=== PATIENT | male | born 1935 | race Caucasian/White ===

== ENCOUNTER 2019-07-24 17:32 | Inpatient (IN) ==
[2019-07-24] MEDS ORDERED: MORPHINE SULFATE INJ 2 MG INJ IVP PRN (18:34)
[2019-07-24 19:00] LABS: BASOPHILS # (AUTO) 0.3 X10^3/uL (0.0-0.1); BASOPHILS % (AUTO) 1.8 % (0.2-1.0); EOSINOPHILS # (AUTO) 0.1 x10^3/uL (0.0-0.2); EOSINOPHILS % (AUTO) 0.5 % (0.9-2.9); HEMOGLOBIN 15.5 g/dL (13.5-18.0); LYMPHOCYTES # (AUTO) 2.2 X10^3/uL (1.3-2.9); LYMPHOCYTES % (AUTO) 14.5 % (21.0-51.0); MEAN CORPUSCULAR HEMOGLOBIN 31.3 pg (27.0-34.0); MEAN CORPUSCULAR HGB CONC 33.8 g/dL (33.0-35.0); MEAN CORPUSCULAR VOLUME 92.7 fL (80.0-100.0); MONOCYTES # (AUTO) 1.3 x10^3/uL (0.3-0.8); MONOCYTES % (AUTO) 8.9 % (0.0-13.0); NEUTROPHILS # (AUTO) 11.2 x10^3/uL (2.2-4.8); NEUTROPHILS % (AUTO) 74.3 % (42.0-75.0); PLATELET COUNT 273 X10^3/uL (150.0-450.0); RED BLOOD COUNT 4.96 X10^6/uL (4.7-6.0); RED CELL DISTRIBUTION WIDTH 14.8 % (11.6-16.5); WHITE BLOOD COUNT 15.1 X10^3/uL (3.6-10.0)
[2019-07-24 19:14] LABS: ALANINE AMINOTRANSFERASE 19 Units/L (12-78); ALBUMIN 3.5 g/dL (3.4-5.0); ALKALINE PHOSPHATASE 105 Units/L (46-116); ASPARTATE AMINO TRANSFERASE 21 Units/L (15-37); BLOOD UREA NITROGEN 18 mg/dL (7-18); CARBON DIOXIDE 27.7 mmol/L (21-32); CHLORIDE 98 mmol/L (98-107); COR NA(FOR HYPERGLY) 136 mmol/L (136-145); CREATININE 1.31 mg/dL (0.70-1.30); SODIUM 135 mmol/L (136-145); TOTAL PROTEIN 7.7 g/dL (6.4-8.2); eGFR NON BLACK RACES 55 (>60)
[2019-07-24 21:32] VITALS: BMI 27.3
[2019-07-24] MEDS: CIPRO IV 400 MG PREMIX* 400 MG/200 ML IV.SOLN. IV SCH (22:59)
[2019-07-24] MEDS: FLAGYL IV PREMIX 500 MG BAG 500 MG/100 ML BAG IV SCH (22:59)
[2019-07-24] MEDS: NS 1000 ML 1,000 ML IV SCH (22:59)
[2019-07-25] MEDS: FLAGYL IV PREMIX 500 MG BAG 500 MG/100 ML BAG IV SCH ×5 (04:30→21:30)
[2019-07-25 05:37] LABS: BASOPHILS % (AUTO) 0.3 % (0.2-1.0); EOSINOPHILS % (AUTO) 0.3 % (0.9-2.9); HEMATOCRIT 39.9 % (42.0-54.0); LYMPHOCYTES # (AUTO) 2.1 X10^3/uL (1.3-2.9); LYMPHOCYTES % (AUTO) 15.6 % (21.0-51.0); MEAN CORPUSCULAR HGB CONC 33.4 g/dL (33.0-35.0); MEAN CORPUSCULAR VOLUME 92.8 fL (80.0-100.0); MEAN PLATELET VOLUME 9.4 fL (7.4-11.0); MONOCYTES # (AUTO) 1.4 x10^3/uL (0.3-0.8); MONOCYTES % (AUTO) 10.1 % (0.0-13.0); NEUTROPHILS # (AUTO) 10.1 x10^3/uL (2.2-4.8); NEUTROPHILS % (AUTO) 73.7 % (42.0-75.0); PLATELET COUNT 225 X10^3/uL (150.0-450.0); RED CELL DISTRIBUTION WIDTH 14.9 % (11.6-16.5); WHITE BLOOD COUNT 13.7 X10^3/uL (3.6-10.0)
[2019-07-25 05:38] LABS: HEMOGLOBIN 13.3 g/dL (13.5-18.0)
[2019-07-25 05:42] LABS: ALANINE AMINOTRANSFERASE 15 Units/L (12-78); ALBUMIN 2.6 g/dL (3.4-5.0); ALKALINE PHOSPHATASE 79 Units/L (46-116); ASPARTATE AMINO TRANSFERASE 17 Units/L (15-37); BLOOD UREA NITROGEN 22 mg/dL (7-18); CALCIUM 8.3 mg/dL (8.5-10.1); CARBON DIOXIDE 23.6 mmol/L (21-32); CHLORIDE 101 mmol/L (98-107); COR CA(FOR HYPOALB) 9.4 mg/dL (8.5-10.1); COR NA(FOR HYPERGLY) 136 mmol/L (136-145); CREATININE 1.03 mg/dL (0.70-1.30); SODIUM 136 mmol/L (136-145); TOTAL PROTEIN 6.2 g/dL (6.4-8.2); eGFR NON BLACK RACES > 60 (>60)
[2019-07-25] MEDS: NS 1000 ML 1,000 ML IV SCH ×3 (06:08→21:30)
[2019-07-25] MEDS ORDERED: POTASSIUM CHLORIDE LIQ 20 MEQ UDC PO PRN (06:24)
[2019-07-25] MEDS ORDERED: MICRO K EXTEN CAP 10 MEQ PO PRN (06:24)
[2019-07-25] MEDS ORDERED: K-RIDER 10 MEQ/NS 100 ML 10 MEQ/100 ML BAG IV PRN (06:24)
[2019-07-25] MEDS ORDERED: POTASSIUM CHL 60 MEQ/NS 0.45% 500 ML IV PRN (06:24)
[2019-07-25] MEDS ORDERED: POTASSIUM CHL 40 MEQ/NS 0.45% 500 ML IV PRN (06:24)
--- NOTE | 2019-07-25 06:49 | DR.H&P ---
H&P History & Physical for Day of: H&P Date: 07/25/19 Chief Complaint Chief Complaint: Abdominal pain and vomiting Allergies Allergies Allergy/AdvReac Type Severity Reaction Status Date / Time No Known Drug Allergies Allergy Verified 07/24/19 21:32 History of Present Illness History of Present Illness: Pt is a 84 yo m pmhx of htn, hypothyroidism, gout, presenting after having abdominal pain and constipation x 1 week. He reports associated sx of nausea, non-bilious emesis. Denies any other symptoms. CTAP(07/24/19):Impression:1.Short segment narrowing and mild mural thickening of the rectosigmoid colon with mild gaseous distention of the proximal colon as above. Although findings could simply represent peristalsis, underlying neoplasm with partial distal colonic obstruction is not excluded. Direct visualization with colonoscopy is recommended for further evaluation. 2.Diffuse colonic diverticulosis without diverticulitis, small hiatal hernia with evidence of GE reflux and additional findings as above. Past Medical History Past Medical History: Gout, Hypertension and Hypothyroidism Past Surgical History Surgical History: Appendectomy and Ortho Surgery Social History Does patient currently use any type of tobacco product: Yes Have you used tobacco products in the last 12 months: Yes Type of Tobacco Use: Cigars Alcohol Use: Occasionally Drug Use: None Medications Home Medications: No Known Drug Allergies Allergy (Verified 07/24/19 21:32) CONTINUE taking the following medications allopurinol 300 mg PO BID 07/24/19 [History] clotrimazole 1 applic TOPICAL BID 07/24/19 [History] furosemide 20 mg PO DAILY 07/24/19 [History] latanoprost 1 drp OPHTHALMIC (EYE) HS 07/24/19 [History] levothyroxine 125 mcg PO DAILY 07/24/19 [History] nifedipine 30 mg PO DAILY 07/24/19 [History] potassium chloride 10 meq PO DAILY 07/24/19 [History] triamcinolone acetonide 1 applic TOPICAL BID PRN 07/24/19 [History] Labs Result Diagrams: 07/25/19 04:29 07/25/19 04:29 Labs: Laboratory WBC 13.7 X10^3/uL (3.6-10.0) H 07/25/19 04:29 RBC 4.30 X10^6/uL (4.7-6.0) L 07/25/19 04:29 Hgb 13.3 g/dL (13.5-18.0) L D 07/25/19 04:29 Hct 39.9 % (42.0-54.0) L 07/25/19 04:29 MCV 92.8 fL (80.0-100.0) 07/25/19 04:29 MCH 31.0 pg (27.0-34.0) 07/25/19 04:29 MCHC 33.4 g/dL (33.0-35.0) 07/25/19 04:29 RDW 14.9 % (11.6-16.5) 07/25/19 04:29 Plt Count 225 X10^3/uL (150.0-450.0) 07/25/19 04:29 MPV 9.4 fL (7.4-11.0) 07/25/19 04:29 Neut % (Auto) 73.7 % (42.0-75.0) 07/25/19 04:29 Lymph % (Auto) 15.6 % (21.0-51.0) L 07/25/19 04:29 [place] % (Auto) 10.1 % (0.0-13.0) 07/25/19 04:29 Eos % (Auto) 0.3 % (0.9-2.9) L 07/25/19 04:29 Baso % (Auto) 0.3 % (0.2-1.0) 07/25/19 04:29 Neut # (Auto) 10.1 x10^3/uL (2.2-4.8) H 07/25/19 04:29 Lymph # (Auto) 2.1 X10^3/uL (1.3-2.9) 07/25/19 04:29 [place] # (Auto) 1.4 x10^3/uL (0.3-0.8) H 07/25/19 04:29 Eos # (Auto) 0.0 x10^3/uL (0.0-0.2) 07/25/19 04:29 Baso # (Auto) 0.0 X10^3/uL (0.0-0.1) 07/25/19 04:29 Absolute Nucleated RBC 0.0 /100WBC 07/25/19 04:29 Sodium 136 mmol/L (136-145) 07/25/19 04:29 Corrected Sodium 136 mmol/L (136-145) 07/25/19 04:29 Potassium 3.2 mmol/L (3.5-5.1) L 07/25/19 04:29 Chloride 101 mmol/L (98-107) 07/25/19 04:29 Carbon Dioxide 23.6 mmol/L (21-32) 07/25/19 04:29 BUN 22 mg/dL (7-18) H 07/25/19 04:29 Creatinine 1.03 mg/dL (0.70-1.30) 07/25/19 04:29 Est GFR (MDRD) Af Amer > 60 (>60) 07/25/19 04:29 Est GFR (MDRD) Non-Af > 60 (>60) 07/25/19 04:29 Glucose 116 mg/dL (65-99) H 07/25/19 04:29 Calcium 8.3 mg/dL (8.5-10.1) L 07/25/19 04:29 Corrected Calcium 9.4 mg/dL (8.5-10.1) 07/25/19 04:29 Total Bilirubin 1.00 mg/dL (0.2-1.0) 07/25/19 04:29 AST 17 Units/L (15-37) 07/25/19 04:29 ALT 15 Units/L (12-78) 07/25/19 04:29 Alkaline Phosphatase 79 Units/L (46-116) 07/25/19 04:29 Total Protein 6.2 g/dL (6.4-8.2) L 07/25/19 04:29 Albumin 2.6 g/dL (3.4-5.0) L 07/25/19 04:29 Globulin 3.6 g/dL (2.5-4.5) 07/25/19 04:29 Albumin/Globulin Ratio 0.7 Ratio (1.1-2.1) L 07/25/19 04:29 Review of Systems Constitutional: denies Fever and Chills Eyes: No Symptoms Reported ENT: No Symptoms Reported Respiratory: No Symptoms Reported Cardiovascular: No Symptoms Reported Gastrointestinal: Vomiting, Abdominal Pain and Constipation; denies Diarrhea, Melena and Hematochezia Genitourinary: No Symptoms Reported Musculoskeletal: No Symptoms Reported Skin: No Symptoms Reported Neurological: No Symptoms Reported Physical Exam Vital Signs: Temperature 98.2 F Pulse Rate [Left Brachial] 67 Respiratory Rate 20 Blood Pressure [Left Arm] 121/59 O2 Sat by Pulse Oximetry 96 Oriented: Normal Eyes: Normal Ear: Normal Nose: Normal Respiratory: Clear Throughout Cardiovascular: Normal : Normal Auscultation: Bowel Sounds: Decreased Palpation: Other (Distended ) Tenderness: Diffuse and Moderate; negative Rebound, Guarding and Rigidity Skin: Normal Musculoskeletal: Normal Psychiatric: Normal Mood Description: Calm Speech Pattern: Clear Assessment/Plan (1) Bowel obstruction: Qualifiers: Intestinal obstruction type: other intestinal obstruction Intestinal obstruction extent: partial Qualified Code(s): K56.690 - Other partial intestinal obstruction Status: Acute Plan: -CTAP at [facility] impression of underlying neoplasm with partial distal colonic obstruction is not excluded. -Surgery consulted, appreciate the recs -NPO, pain and nausea control. -Ordered KUB this morning. F/u results. (2) Hypothyroidism: Qualifiers: Hypothyroidism type: unspecified Qualified Code(s): E03.9 - Hypothyroidism, unspecified Status: Acute (3) Hypertension: Qualifiers: Hypertension type: essential hypertension Qualified Code(s): I10 - Essential (primary) hypertension Status: Acute (4) Gout: Qualifiers: Gout site: unspecified site Gout etiology: unspecified cause Chronicity: unspecified Qualified Code(s): M10.9 - Gout, unspecified Status: Acute
[2019-07-25] MEDS: K-DUR TAB 20 MEQ PO PRN ×2 (06:50→08:58)
--- NOTE | 2019-07-25 08:05 | RAD ---
HISTORY: Bowel obstruction Study: KUB Comparison: None available Findings: The abdominal gas pattern is nonspecific and nonobstructive. No abnormal masses or abnormal calcifications are present. 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 IMPRESSION: Nonspecific bowel gas pattern Reported By:
[2019-07-25] MEDS: CIPRO IV 400 MG PREMIX* 400 MG/200 ML IV.SOLN. IV SCH ×2 (08:57→21:30)
[2019-07-25] MEDS ORDERED: CITROMA PO ONE (14:15)
[2019-07-25] MEDS ORDERED: DULCOLAX TAB EC 5 MG PO ONE (14:15)
[2019-07-26] MEDS: FLAGYL IV PREMIX 500 MG BAG 500 MG/100 ML BAG IV SCH ×4 (04:03→21:38)
[2019-07-26] MEDS: NS 1000 ML 1,000 ML IV SCH ×3 (04:03→19:06)
[2019-07-26 06:35] LABS: BASOPHILS # (AUTO) 0.1 X10^3/uL (0.0-0.1); BASOPHILS % (AUTO) 0.5 % (0.2-1.0); EOSINOPHILS # (AUTO) 0.3 x10^3/uL (0.0-0.2); EOSINOPHILS % (AUTO) 2.6 % (0.9-2.9); HEMATOCRIT 37.6 % (42.0-54.0); HEMOGLOBIN 12.6 g/dL (13.5-18.0); LYMPHOCYTES # (AUTO) 2.4 X10^3/uL (1.3-2.9); LYMPHOCYTES % (AUTO) 24.5 % (21.0-51.0); MEAN CORPUSCULAR HGB CONC 33.4 g/dL (33.0-35.0); MEAN CORPUSCULAR VOLUME 92.6 fL (80.0-100.0); MEAN PLATELET VOLUME 9.2 fL (7.4-11.0); MONOCYTES # (AUTO) 0.9 x10^3/uL (0.3-0.8); MONOCYTES % (AUTO) 9.2 % (0.0-13.0); NEUTROPHILS # (AUTO) 6.1 x10^3/uL (2.2-4.8); NEUTROPHILS % (AUTO) 63.2 % (42.0-75.0); PLATELET COUNT 214 X10^3/uL (150.0-450.0); RED BLOOD COUNT 4.06 X10^6/uL (4.7-6.0); WHITE BLOOD COUNT 9.7 X10^3/uL (3.6-10.0)
[2019-07-26 06:40] LABS: BLOOD UREA NITROGEN 20 mg/dL (7-18); SODIUM 140 mmol/L (136-145); eGFR NON BLACK RACES > 60 (>60)
[2019-07-26 07:13] LABS: ALBUMIN 2.6 g/dL (3.4-5.0); CHLORIDE 105 mmol/L (98-107)
[2019-07-26 07:27] LABS: ALANINE AMINOTRANSFERASE 13 Units/L (12-78); ALKALINE PHOSPHATASE 72 Units/L (46-116); ASPARTATE AMINO TRANSFERASE 22 Units/L (15-37); CALCIUM 8.3 mg/dL (8.5-10.1); CARBON DIOXIDE 26.1 mmol/L (21-32); COR CA(FOR HYPOALB) 9.4 mg/dL (8.5-10.1); CREATININE 1.14 mg/dL (0.70-1.30); TOTAL PROTEIN 5.9 g/dL (6.4-8.2)
[2019-07-26] MEDS: CIPRO IV 400 MG PREMIX* 400 MG/200 ML IV.SOLN. IV SCH ×2 (09:26→20:38)
--- NOTE | 2019-07-26 10:28 | PCM.PROG ---
Progress Note Progress Note for Day of Date of Exam: 07/26/19 Subjective Subjective: Pt is a 84 yo m pmhx of htn, hypothyroidism, gout, admitted for failed outpt treatment for partial bowel obstruction w/ associated sx abdominal pain, constipation, nausea, non-bilious emesis. -Pt is feeling a little better this morning. He has improvement in his abdominal pain but still present. Reports having multiple bowel movements yesterday that were soft and loose. He is scheduled for proctosigmoidoscopy today. CTAP(07/24/19):Impression:1.Short segment narrowing and mild mural thickening of the rectosigmoid colon with mild gaseous distention of the proximal colon as above. Although findings could simply represent peristalsis, underlying neoplasm with partial distal colonic obstruction is not excluded. Direct visualization with colonoscopy is recommended for further evaluation. 2.Diffuse colonic diverticulosis without diverticulitis, small hiatal hernia with evidence of GE reflux and additional findings as above. Past Medical Family Social History Past Med/Fam/Surg Hx: No changes since H&P Allergies: Allergies No Known Drug Allergies Allergy (Verified 07/24/19 21:32) Review of Systems ROS: No change since H&P Vital Signs and I&O's Vital Signs: Temperature 97.7 F Pulse Rate [Left Brachial] 81 Respiratory Rate 17 Blood Pressure [Left Arm] 109/57 O2 Sat by Pulse Oximetry 98 Intake and Output: Intake & Output 07/23/19 07/24/19 07/25/19 07/26/19 23:59 23:59 23:59 23:59 Intake Total 620 / 620 1440 / 1440 0 / 0 Balance 620 / 620 1440 / 1440 0 / 0 Physical Exam Oriented: Normal Eyes: Normal Ear: Normal Nose: Normal Cardiovascular: Normal : Normal Auscultation: Bowel Sounds: Decreased Tenderness: Diffuse and Moderate; negative Rebound, Guarding and Rigidity Skin: Normal Musculoskeletal: Normal Psychiatric: Normal Mood Description: Calm Speech Pattern: Clear and Appropriate Laboratory and Diagnostics Result Diagrams: 07/26/19 05:16 07/26/19 05:16 Labs: Laboratory WBC 9.7 X10^3/uL (3.6-10.0) 07/26/19 05:16 RBC 4.06 X10^6/uL (4.7-6.0) L 07/26/19 05:16 Hgb 12.6 g/dL (13.5-18.0) L 07/26/19 05:16 Hct 37.6 % (42.0-54.0) L 07/26/19 05:16 MCV 92.6 fL (80.0-100.0) 07/26/19 05:16 MCH 31.0 pg (27.0-34.0) 07/26/19 05:16 MCHC 33.4 g/dL (33.0-35.0) 07/26/19 05:16 RDW 15.0 % (11.6-16.5) 07/26/19 05:16 Plt Count 214 X10^3/uL (150.0-450.0) 07/26/19 05:16 MPV 9.2 fL (7.4-11.0) 07/26/19 05:16 Neut % (Auto) 63.2 % (42.0-75.0) 07/26/19 05:16 Lymph % (Auto) 24.5 % (21.0-51.0) 07/26/19 05:16 [place] % (Auto) 9.2 % (0.0-13.0) 07/26/19 05:16 Eos % (Auto) 2.6 % (0.9-2.9) 07/26/19 05:16 Baso % (Auto) 0.5 % (0.2-1.0) 07/26/19 05:16 Neut # (Auto) 6.1 x10^3/uL (2.2-4.8) H 07/26/19 05:16 Lymph # (Auto) 2.4 X10^3/uL (1.3-2.9) 07/26/19 05:16 [place] # (Auto) 0.9 x10^3/uL (0.3-0.8) H 07/26/19 05:16 Eos # (Auto) 0.3 x10^3/uL (0.0-0.2) H 07/26/19 05:16 Baso # (Auto) 0.1 X10^3/uL (0.0-0.1) 07/26/19 05:16 Absolute Nucleated RBC 0.1 /100WBC 07/26/19 05:16 Sodium 140 mmol/L (136-145) 07/26/19 05:16 Corrected Sodium TNP 07/26/19 05:16 Potassium 3.2 mmol/L (3.5-5.1) L 07/26/19 05:16 Chloride 105 mmol/L (98-107) 07/26/19 05:16 Carbon Dioxide 26.1 mmol/L (21-32) 07/26/19 05:16 BUN 20 mg/dL (7-18) H 07/26/19 05:16 Creatinine 1.14 mg/dL (0.70-1.30) 07/26/19 05:16 Est GFR (MDRD) Af Amer > 60 (>60) 07/26/19 05:16 Est GFR (MDRD) Non-Af > 60 (>60) 07/26/19 05:16 Glucose 99 mg/dL (65-99) 07/26/19 05:16 Calcium 8.3 mg/dL (8.5-10.1) L 07/26/19 05:16 Corrected Calcium 9.4 mg/dL (8.5-10.1) 07/26/19 05:16 Total Bilirubin 0.60 mg/dL (0.2-1.0) 07/26/19 05:16 AST 22 Units/L (15-37) 07/26/19 05:16 ALT 13 Units/L (12-78) 07/26/19 05:16 Alkaline Phosphatase 72 Units/L (46-116) 07/26/19 05:16 Total Protein 5.9 g/dL (6.4-8.2) L 07/26/19 05:16 Albumin 2.6 g/dL (3.4-5.0) L 07/26/19 05:16 Globulin 3.3 g/dL (2.5-4.5) 07/26/19 05:16 Albumin/Globulin Ratio 0.8 Ratio (1.1-2.1) L 07/26/19 05:16 Stool Description 75g unformed brown 07/25/19 11:42 Stl Occult Blood (IFOB) Positive (NEGATIVE) A 07/25/19 11:42 Plan (1) Bowel obstruction: Status: Acute Qualifiers: Intestinal obstruction type: other intestinal obstruction Intestinal obstruction extent: partial Qualified Code(s): K56.690 - Other partial intestinal obstruction Plan: -Surgery consulted, will be performing proctosigmoidoscopy today. -NPO, pain and nausea control. -Stool occult:positive, CEA pending (2) Hypothyroidism: Status: Acute Qualifiers: Hypothyroidism type: unspecified Qualified Code(s): E03.9 - Hypothy roidism, unspecified (3) Hypertension: Status: Acute Qualifiers: Hypertension type: essential hypertension Qualified Code(s): I10 - Essential (primary) hypertension (4) Gout: Status: Acute Qualifiers: Gout site: unspecified site Gout etiology: unspecified cause Chronicity: unspecified Qualified Code(s): M10.9 - Gout, unspecified
[2019-07-26] MEDS ORDERED: DIPRIVAN VIAL 20 ML ONE (11:15)
[2019-07-26] MEDS ORDERED: NS IV ONE (14:34)
[2019-07-26] MEDS ORDERED: STERILE WATER IRRIGATION IR ONE (14:34)
[2019-07-26] MEDS: K-DUR TAB 20 MEQ PO PRN ×2 (16:41→20:38)
[2019-07-26] MEDS: ZOFRAN INJ 4 MG VIAL IVP PRN (16:42)
[2019-07-26] MEDS: SYNTHROID 125 mcg TAB PO SCH (18:22)
--- NOTE | 2019-07-26 20:25 | RAD ---
Chest, one view Indication: Preop Comparison: None Findings: Accounting for AP technique and low lung volumes, the cardiac silhouette is borderline enlarged without congestive failure. Lungs are hypoinflated but grossly clear of acute infiltrates. No significant pleural effusion. No pneumothorax. Impression: Mild cardiomegaly without CHF. Lungs hypoinflated but grossly clear. Reported By:
[2019-07-27] MEDS: NS 1000 ML 1,000 ML IV SCH (02:52)
[2019-07-27] MEDS: FLAGYL IV PREMIX 500 MG BAG 500 MG/100 ML BAG IV SCH ×4 (04:33→21:26)
[2019-07-27 06:59] LABS: BASOPHILS # (AUTO) 0.1 X10^3/uL (0.0-0.1); BASOPHILS % (AUTO) 1.1 % (0.2-1.0); EOSINOPHILS # (AUTO) 0.3 x10^3/uL (0.0-0.2); EOSINOPHILS % (AUTO) 3.2 % (0.9-2.9); HEMATOCRIT 39.2 % (42.0-54.0); LYMPHOCYTES % (AUTO) 21.5 % (21.0-51.0); MEAN CORPUSCULAR HEMOGLOBIN 30.9 pg (27.0-34.0); MEAN CORPUSCULAR HGB CONC 33.2 g/dL (33.0-35.0); MEAN CORPUSCULAR VOLUME 93.1 fL (80.0-100.0); MEAN PLATELET VOLUME 9.2 fL (7.4-11.0); MONOCYTES # (AUTO) 0.8 x10^3/uL (0.3-0.8); MONOCYTES % (AUTO) 8.4 % (0.0-13.0); NEUTROPHILS # (AUTO) 6.2 x10^3/uL (2.2-4.8); NEUTROPHILS % (AUTO) 65.8 % (42.0-75.0); PLATELET COUNT 241 X10^3/uL (150.0-450.0); RED BLOOD COUNT 4.21 X10^6/uL (4.7-6.0); RED CELL DISTRIBUTION WIDTH 15.2 % (11.6-16.5); WHITE BLOOD COUNT 9.4 X10^3/uL (3.6-10.0)
[2019-07-27 07:07] LABS: BLOOD UREA NITROGEN 12 mg/dL (7-18); CALCIUM 8.1 mg/dL (8.5-10.1); CARBON DIOXIDE 25.5 mmol/L (21-32); CHLORIDE 107 mmol/L (98-107); CREATININE 0.99 mg/dL (0.70-1.30); SODIUM 141 mmol/L (136-145); eGFR NON BLACK RACES > 60 (>60)
[2019-07-27] MEDS ORDERED: BACITRACIN VIAL ONE (08:58)
[2019-07-27] MEDS: CIPRO IV 400 MG PREMIX* 400 MG/200 ML IV.SOLN. IV SCH ×2 (09:00→20:27)
[2019-07-27] MEDS ORDERED: FENTANYL INJ 250 mcg ONE (09:26)
[2019-07-27] MEDS ORDERED: DILAUDID INJ ONE (09:26)
[2019-07-27] MEDS ORDERED: LR 1000 ML IV 1,000 ML IV ONE (09:27)
[2019-07-27 10:58] LABS: BILIRUBIN,URINE NEGATIVE (NEGATIVE); BLOOD/HEMOGLOBIN,URINE NEGATIVE (NEGATIVE); GLUCOSE, URINE NEGATIVE (NEGATIVE); KETONES,URINE 3+ (NEGATIVE); LEUKOCYTE ESTERASE ,URINE 2+ (NEGATIVE); NITRITES,URINE POSITIVE (NEGATIVE); PROTEIN,URINE 2+ (NEGATIVE); UROBILINOGEN,URINE NORMAL (NORMAL)
[2019-07-27 11:07] LABS: APPEARANCE,URINE CLEAR (CLEAR); COLOR,URINE DARK YELLOW (YELLOW)
[2019-07-27 11:08] LABS: BACTERIA,URINE TRACE /HPF (NEGATIVE); MUCUS,URINE FEW /HPF (NEGATIVE); RBC,URINE 0-2 /HPF (0-3); SQUAMOUS EPITHELIAL CELL,UR FEW /HPF (NEGATIVE)
[2019-07-27] MEDS ORDERED: ZOFRAN INJ 4 MG VIAL IVP PRN (11:10)
[2019-07-27] MEDS ORDERED: BENADRYL INJ 50 MG VIAL IVP PRN (11:10)
[2019-07-27] MEDS ORDERED: DILAUDID INJ IVP PRN (11:10)
[2019-07-27] MEDS ORDERED: PHENERGAN INJ 25 MG IM PRN (11:10)
[2019-07-27] MEDS ORDERED: REGLAN INJ 10 MG VIAL IVP PRN (11:10)
--- NOTE | 2019-07-27 11:23 | OR.IMMED ---
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 Procedure: transverse colon colostomy .( loop colostomy ) Surgeon/Clinic Physician: Renee Estimated Blood Loss: 10 cc Drains: NONE Complications: no Condition: Stable
[2019-07-27] MEDS: D5 1/2 NS 1000 ML 1,000 ML IV SCH ×2 (13:22→21:25)
[2019-07-27] MEDS ORDERED: EPHEDRINE SULFATE INJ ONE (15:44)
[2019-07-27] MEDS ORDERED: ROBINUL ONE (15:44)
[2019-07-27] MEDS ORDERED: DIPRIVAN VIAL ONE (15:44)
[2019-07-27] MEDS ORDERED: QUELICIN (OR ANECTINE) ONE (15:44)
[2019-07-27] MEDS ORDERED: NEOSTIGMINE INJ ONE (15:44)
[2019-07-27] MEDS ORDERED: ZOFRAN INJ 4 MG VIAL ONE (15:44)
[2019-07-27] MEDS ORDERED: SUPRANE ONE (15:44)
[2019-07-27] MEDS: SYNTHROID 125 mcg TAB PO SCH (18:31)
[2019-07-28] MEDS: FLAGYL IV PREMIX 500 MG BAG 500 MG/100 ML BAG IV SCH ×4 (03:15→21:02)
[2019-07-28] MEDS: D5 1/2 NS 1000 ML 1,000 ML IV SCH ×5 (05:10→21:02)
[2019-07-28 05:21] LABS: BASOPHILS # (AUTO) 0.1 X10^3/uL (0.0-0.1); BASOPHILS % (AUTO) 0.6 % (0.2-1.0); EOSINOPHILS # (AUTO) 0.2 x10^3/uL (0.0-0.2); EOSINOPHILS % (AUTO) 1.9 % (0.9-2.9); HEMATOCRIT 37.8 % (42.0-54.0); HEMOGLOBIN 12.7 g/dL (13.5-18.0); LYMPHOCYTES # (AUTO) 1.7 X10^3/uL (1.3-2.9); LYMPHOCYTES % (AUTO) 17.3 % (21.0-51.0); MEAN CORPUSCULAR HEMOGLOBIN 31.4 pg (27.0-34.0); MEAN CORPUSCULAR HGB CONC 33.6 g/dL (33.0-35.0); MEAN CORPUSCULAR VOLUME 93.3 fL (80.0-100.0); MEAN PLATELET VOLUME 8.5 fL (7.4-11.0); MONOCYTES # (AUTO) 1.3 x10^3/uL (0.3-0.8); MONOCYTES % (AUTO) 12.6 % (0.0-13.0); NEUTROPHILS # (AUTO) 6.7 x10^3/uL (2.2-4.8); NEUTROPHILS % (AUTO) 67.6 % (42.0-75.0); PLATELET COUNT 210 X10^3/uL (150.0-450.0); RED BLOOD COUNT 4.05 X10^6/uL (4.7-6.0); RED CELL DISTRIBUTION WIDTH 14.9 % (11.6-16.5); WHITE BLOOD COUNT 9.9 X10^3/uL (3.6-10.0)
[2019-07-28 05:25] LABS: BLOOD UREA NITROGEN 6 mg/dL (7-18); CARBON DIOXIDE 24.5 mmol/L (21-32); CHLORIDE 106 mmol/L (98-107); COR NA(FOR HYPERGLY) 139 mmol/L (136-145); CREATININE 0.96 mg/dL (0.70-1.30); SODIUM 139 mmol/L (136-145); eGFR NON BLACK RACES > 60 (>60)
--- NOTE | 2019-07-28 09:49 | DR.PROGNOT ---
Hospital Progress Notes - Progress Note for Day of: Progress Note Date: 07/28/19 - Chief Complaint Chief Complaint: post op loop colostomy transverse colon. doing fairly well . only mild abdominal pain . no nausea or vomiting . costomy bag is not functioning yet . will start clear liquid and advance to full liquid later on . - Past Medical Family Social History Past Med/Fam/Surg Hx: No changes since H&P Allergies: Allergies No Known Drug Allergies Allergy (Verified 07/24/19 21:32) - Review Of Systems ROS: No change since H&P - Vital Signs Vital Signs: Temperature 98.6 F Pulse Rate [Left Brachial] 83 Pulse Rate 55 Respiratory Rate 20 Blood Pressure [Left Arm] 128/58 Blood Pressure 144/67 O2 Sat by Pulse Oximetry 94 - Physical Exam Oriented: Normal Eyes: Normal Ear: Normal Nose: Normal Cardiovascular: Irregular (irregular with PACs. ) : Normal GI:Auscultation: Decreased GI:Palpation: Other (Distended) GI: Tenderness: Diffuse (soft , flat abdomen , BS+ , colostomy is not functioning yet ), Moderate. negative: Rebound, Guarding, Rigidity Skin: Normal Musculoskeletal: Normal Psychiatric: Normal Mood Description: Calm Speech Pattern: Clear, Appropriate - Laboratory and Diagnostics Result Diagrams: 07/28/19 04:54 07/28/19 04:54 Labs: 07/27/19 10:13 Urine,Catheterized Urine Culture - Preliminary Laboratory WBC 9.9 X10^3/uL (3.6-10.0) 07/28/19 04:54 RBC 4.05 X10^6/uL (4.7-6.0) L 07/28/19 04:54 Hgb 12.7 g/dL (13.5-18.0) L 07/28/19 04:54 Hct 37.8 % (42.0-54.0) L 07/28/19 04:54 MCV 93.3 fL (80.0-100.0) 07/28/19 04:54 MCH 31.4 pg (27.0-34.0) 07/28/19 04:54 MCHC 33.6 g/dL (33.0-35.0) 07/28/19 04:54 RDW 14.9 % (11.6-16.5) 07/28/19 04:54 Plt Count 210 X10^3/uL (150.0-450.0) 07/28/19 04:54 MPV 8.5 fL (7.4-11.0) 07/28/19 04:54 Neut % (Auto) 67.6 % (42.0-75.0) 07/28/19 04:54 Lymph % (Auto) 17.3 % (21.0-51.0) L 07/28/19 04:54 [place] % (Auto) 12.6 % (0.0-13.0) 07/28/19 04:54 Eos % (Auto) 1.9 % (0.9-2.9) 07/28/19 04:54 Baso % (Auto) 0.6 % (0.2-1.0) 07/28/19 04:54 Neut # (Auto) 6.7 x10^3/uL (2.2-4.8) H 07/28/19 04:54 Lymph # (Auto) 1.7 X10^3/uL (1.3-2.9) 07/28/19 04:54 [place] # (Auto) 1.3 x10^3/uL (0.3-0.8) H 07/28/19 04:54 Eos # (Auto) 0.2 x10^3/uL (0.0-0.2) 07/28/19 04:54 Baso # (Auto) 0.1 X10^3/uL (0.0-0.1) 07/28/19 04:54 Absolute Nucleated RBC 0.0 /100WBC 07/28/19 04:54 PT 13.9 SECONDS (11.8-14.3) 07/27/19 06:10 INR Target Range - 07/27/19 06:10 INR 1.11 (0.8-1.3) 07/27/19 06:10 Sodium 139 mmol/L (136-145) 07/28/19 04:54 Corrected Sodium 139 mmol/L (136-145) 07/28/19 04:54 Potassium 3.4 mmol/L (3.5-5.1) L 07/28/19 04:54 Chloride 106 mmol/L (98-107) 07/28/19 04:54 Carbon Dioxide 24.5 mmol/L (21-32) 07/28/19 04:54 BUN 6 mg/dL (7-18) L 07/28/19 04:54 Creatinine 0.96 mg/dL (0.70-1.30) 07/28/19 04:54 Est GFR (MDRD) Af Amer > 60 (>60) 07/28/19 04:54 Est GFR (MDRD) Non-Af > 60 (>60) 07/28/19 04:54 Glucose 120 mg/dL (65-99) H 07/28/19 04:54 Calcium 8.0 mg/dL (8.5-10.1) L 07/28/19 04:54 Corrected Calcium 9.4 mg/dL (8.5-10.1) 07/26/19 05:16 Magnesium 1.7 mg/dL (1.7-2.9) 07/28/19 04:54 Total Bilirubin 0.60 mg/dL (0.2-1.0) 07/26/19 05:16 AST 22 Units/L (15-37) 07/26/19 05:16 ALT 13 Units/L (12-78) 07/26/19 05:16 Alkaline Phosphatase 72 Units/L (46-116) 07/26/19 05:16 Total Protein 5.9 g/dL (6.4-8.2) L 07/26/19 05:16 Albumin 2.6 g/dL (3.4-5.0) L 07/26/19 05:16 Globulin 3.3 g/dL (2.5-4.5) 07/26/19 05:16 Albumin/Globulin Ratio 0.8 Ratio (1.1-2.1) L 07/26/19 05:16 Carcinoembryonic Ag 3.5 ng/mL (0.0-3.0) H 07/25/19 04:29 Specimen Type Catherized urine 07/27/19 10:13 Urine Color Dark yellow (YELLOW) 07/27/19 10:13 Urine Appearance Clear (CLEAR) 07/27/19 10:13 Urine pH 5.0 (5.0 - 8.0) 07/27/19 10:13 Ur Specific [place] 1.025 (1.000-1.030) 07/27/19 10:13 Urine Protein 2+ (NEGATIVE) 07/27/19 10:13 Urine Glucose (UA) Negative (NEGATIVE) 07/27/19 10:13 Urine Ketones 3+ (NEGATIVE) 07/27/19 10:13 Urine Occult Blood Negative (NEGATIVE) 07/27/19 10:13 Urine Nitrite Positive (NEGATIVE) 07/27/19 10:13 Urine Bilirubin Negative (NEGATIVE) 07/27/19 10:13 Urine Urobilinogen Normal (NORMAL) 07/27/19 10:13 Ur Leukocyte Esterase 2+ (NEGATIVE) 07/27/19 10:13 Urine RBC 0-2 /HPF (0-3) 07/27/19 10:13 Urine WBC 5-10 /HPF (0-5) A 07/27/19 10:13 Ur Squamous Epith Cells Few /HPF (NEGATIVE) 07/27/19 10:13 Urine Bacteria Trace /HPF (NEGATIVE) 07/27/19 10:13 Urine Mucus Few /HPF (NEGATIVE) 07/27/19 10:13 Ur Culture Indicated? 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 s/p transverse loop colostomy .. start on liquid diet . on Lovenox . d/c Foly . OOB - Problem Patient Problems: Patient Problems Gout (Acute) M10.9 Hypertension (Acute) I10 Hypothyroidism (Acute) E03.9 Bowel obstruction (Acute) K56.609
[2019-07-28] MEDS: SYNTHROID INJ 100 mcg VIAL IVP SCH (10:16)
[2019-07-28] MEDS ORDERED: MICRO K EXTEN CAP 10 MEQ PO ONE (11:00)
[2019-07-28] MEDS: CIPRO IV 400 MG PREMIX* 400 MG/200 ML IV.SOLN. IV SCH ×2 (11:46→20:18)
[2019-07-28] MEDS: ZYLOPRIM PO SCH (11:47)
[2019-07-28] MEDS: LASIX PO SCH (11:47)
[2019-07-28] MEDS: PROCARDIA XL PO SCH (11:47)
[2019-07-28] MEDS: LOVENOX INJ 40 MG SYR SC SCH (11:48)
[2019-07-28] MEDS: XALATAN EACHEYE SCH (20:24)
[2019-07-29] MEDS: D5 1/2 NS 1000 ML 1,000 ML IV SCH ×3 (03:12→20:50)
[2019-07-29] MEDS: FLAGYL IV PREMIX 500 MG BAG 500 MG/100 ML BAG IV SCH ×5 (03:12→22:59)
[2019-07-29 06:13] LABS: BASOPHILS # (AUTO) 0.1 X10^3/uL (0.0-0.1); BASOPHILS % (AUTO) 0.6 % (0.2-1.0); EOSINOPHILS # (AUTO) 0.3 x10^3/uL (0.0-0.2); EOSINOPHILS % (AUTO) 2.1 % (0.9-2.9); HEMATOCRIT 37.7 % (42.0-54.0); HEMOGLOBIN 12.5 g/dL (13.5-18.0); LYMPHOCYTES # (AUTO) 2.3 X10^3/uL (1.3-2.9); LYMPHOCYTES % (AUTO) 19.4 % (21.0-51.0); MEAN CORPUSCULAR HEMOGLOBIN 30.7 pg (27.0-34.0); MEAN CORPUSCULAR HGB CONC 33.2 g/dL (33.0-35.0); MEAN CORPUSCULAR VOLUME 92.4 fL (80.0-100.0); MEAN PLATELET VOLUME 9.3 fL (7.4-11.0); MONOCYTES # (AUTO) 1.5 x10^3/uL (0.3-0.8); MONOCYTES % (AUTO) 12.5 % (0.0-13.0); NEUTROPHILS # (AUTO) 7.9 x10^3/uL (2.2-4.8); NEUTROPHILS % (AUTO) 65.4 % (42.0-75.0); PLATELET COUNT 197 X10^3/uL (150.0-450.0); RED BLOOD COUNT 4.08 X10^6/uL (4.7-6.0); RED CELL DISTRIBUTION WIDTH 14.9 % (11.6-16.5)
[2019-07-29 06:19] LABS: BLOOD UREA NITROGEN 3 mg/dL (7-18); CALCIUM 7.7 mg/dL (8.5-10.1); CARBON DIOXIDE 24.4 mmol/L (21-32); CHLORIDE 104 mmol/L (98-107); COR NA(FOR HYPERGLY) 140 mmol/L (136-145); CREATININE 0.86 mg/dL (0.70-1.30); SODIUM 139 mmol/L (136-145); eGFR NON BLACK RACES > 60 (>60)
[2019-07-29 07:08] LABS: PLATELET MORPHOLOGY COMMENT NORMAL (NORMAL)
--- NOTE | 2019-07-29 08:08 | PCM.PROG ---
Progress Note Progress Note for Day of Date of Exam: 07/29/19 Subjective Subjective: Pt is a 84 yo m pmhx of htn, hypothyroidism, gout, admitted for large bowel obstruction. He is s/p transverse loop colostomy after CT and proctosigmoidoscopy noted on obstructing mass. He is POD#2. Pt this morning resting comfortably. He has colostomy bag with output noted. No acute concerns overnight. CTAP(07/24/19):Impression:1.Short segment narrowing and mild mural thickening of the rectosigmoid colon with mild gaseous distention of the proximal colon as above. Although findings could simply represent peristalsis, underlying neoplasm with partial distal colonic obstruction is not excluded. Direct visualization with colonoscopy is recommended for further evaluation. 2.Diffuse colonic diverticulosis without diverticulitis, small hiatal hernia with evidence of GE reflux and additional findings as above. Past Medical Family Social History Past Med/Fam/Surg Hx: No changes since H&P Allergies: Allergies No Known Drug Allergies Allergy (Verified 07/24/19 21:32) Review of Systems ROS: No change since H&P Vital Signs and I&O's Vital Signs: Temperature 98.7 F Pulse Rate [Left Brachial] 78 Pulse Rate 55 Respiratory Rate 20 Blood Pressure [Left Arm] 107/53 Blood Pressure 144/67 O2 Sat by Pulse Oximetry 91 Intake and Output: Intake & Output 07/27/19 07/28/19 07/28/19 07/29/19 00:59 00:59 23:59 23:59 Intake Total 600 / 600 Output Total 50 / 50 Balance 550 / 550 Physical Exam Oriented: Normal Eyes: Normal Ear: Normal Nose: Normal Cardiovascular: Irregular (irregular with PACs. ) : Normal Auscultation: Bowel Sounds: Decreased Tenderness: Diffuse (soft , flat abdomen , BS+ , colostomy is not functioning yet ) and Moderate; negative Rebound, Guarding and Rigidity Skin: Normal Musculoskeletal: Normal Psychiatric: Normal Mood Description: Calm Speech Pattern: Clear and Appropriate Laboratory and Diagnostics Result Diagrams: 07/29/19 05:25 07/29/19 08:48 Labs: 07/27/19 10:13 Urine,Catheterized Urine Culture - Preliminary Laboratory WBC 12.0 X10^3/uL (3.6-10.0) H 07/29/19 05:25 RBC 4.08 X10^6/uL (4.7-6.0) L 07/29/19 05:25 Hgb 12.5 g/dL (13.5-18.0) L 07/29/19 05:25 Hct 37.7 % (42.0-54.0) L 07/29/19 05:25 MCV 92.4 fL (80.0-100.0) 07/29/19 05:25 MCH 30.7 pg (27.0-34.0) 07/29/19 05:25 MCHC 33.2 g/dL (33.0-35.0) 07/29/19 05:25 RDW 14.9 % (11.6-16.5) 07/29/19 05:25 Plt Count 197 X10^3/uL (150.0-450.0) 07/29/19 05:25 Plt Count Comment Adequate (ADEQUATE) 07/29/19 05:25 MPV 9.3 fL (7.4-11.0) 07/29/19 05:25 Neut % (Auto) 65.4 % (42.0-75.0) 07/29/19 05:25 Lymph % (Auto) 19.4 % (21.0-51.0) L 07/29/19 05:25 [place] % (Auto) 12.5 % (0.0-13.0) 07/29/19 05:25 Eos % (Auto) 2.1 % (0.9-2.9) 07/29/19 05:25 Baso % (Auto) 0.6 % (0.2-1.0) 07/29/19 05:25 Neut # (Auto) 7.9 x10^3/uL (2.2-4.8) H 07/29/19 05:25 Lymph # (Auto) 2.3 X10^3/uL (1.3-2.9) 07/29/19 05:25 [place] # (Auto) 1.5 x10^3/uL (0.3-0.8) H 07/29/19 05:25 Eos # (Auto) 0.3 x10^3/uL (0.0-0.2) H 07/29/19 05:25 Baso # (Auto) 0.1 X10^3/uL (0.0-0.1) 07/29/19 05:25 Absolute Nucleated RBC 0.0 /100WBC 07/29/19 05:25 Plt Morphology Comment Normal (NORMAL) 07/29/19 05:25 RBC Morphology Normal (NORMAL) 07/29/19 05:25 PT 13.9 SECONDS (11.8-14.3) 07/27/19 06:10 INR Target Range - 07/27/19 06:10 INR 1.11 (0.8-1.3) 07/27/19 06:10 Sodium 139 mmol/L (136-145) 07/29/19 05:25 Corrected Sodium 140 mmol/L (136-145) 07/29/19 05:25 Potassium 2.8 mmol/L (3.5-5.1) L* 07/29/19 05:25 Chloride 104 mmol/L (98-107) 07/29/19 05:25 Carbon Dioxide 24.4 mmol/L (21-32) 07/29/19 05:25 BUN 3 mg/dL (7-18) L 07/29/19 05:25 Creatinine 0.86 mg/dL (0.70-1.30) 07/29/19 05:25 Est GFR (MDRD) Af Amer > 60 (>60) 07/29/19 05:25 Est GFR (MDRD) Non-Af > 60 (>60) 07/29/19 05:25 Glucose 132 mg/dL (65-99) H 07/29/19 05:25 Calcium 7.7 mg/dL (8.5-10.1) L 07/29/19 05:25 Corrected Calcium 9.4 mg/dL (8.5-10.1) 07/26/19 05:16 Magnesium 1.4 mg/dL (1.7-2.9) L 07/29/19 05:25 Total Bilirubin 0.60 mg/dL (0.2-1.0) 07/26/19 05:16 AST 22 Units/L (15-37) 07/26/19 05:16 ALT 13 Units/L (12-78) 07/26/19 05:16 Alkaline Phosphatase 72 Units/L (46-116) 07/26/19 05:16 Total Protein 5.9 g/dL (6.4-8.2) L 07/26/19 05:16 Albumin 2.6 g/dL (3.4-5.0) L 07/26/19 05:16 Globulin 3.3 g/dL (2.5-4.5) 07/26/19 05:16 Albumin/Globulin Ratio 0.8 Ratio (1.1-2.1) L 07/26/19 05:16 Carcinoembryonic Ag 3.5 ng/mL (0.0-3.0) H 07/25/19 04:29 Specimen Type Catherized urine 07/27/19 10:13 Urine Color Dark yellow (YELLOW) 07/27/19 10:13 Urine Appearance Clear (CLEAR) 07/27/19 10:13 Urine pH 5.0 (5.0 - 8.0) 07/27/19 10:13 Ur Specific [place] 1.025 (1.000-1.030) 07/27/19 10:13 Urine Protein 2+ (NEGATIVE) 07/27/19 10:13 Urine Glucose (UA) Negative (NEGATIVE) 07/27/19 10:13 Urine Ketones 3+ (NEGATIVE) 07/27/19 10:13 Urine Occult Blood Negative (NEGATIVE) 07/27/19 10:13 Urine Nitrite Positive (NEGATIVE) 07/27/19 10:13 Urine Bilirubin Negative (NEGATIVE) 07/27/19 10:13 Urine Urobilinogen Normal (NORMAL) 07/27/19 10:13 Ur Leukocyte Esterase 2+ (NEGATIVE) 07/27/19 10:13 Urine RBC 0-2 /HPF (0-3) 07/27/19 10:13 Urine WBC 5-10 /HPF (0-5) A 07/27/19 10:13 Ur Squamous Epith Cells Few /HPF (NEGATIVE) 07/27/19 10:13 Urine Bacteria Trace /HPF (NEGATIVE) 07/27/19 10:13 Urine Mucus Few /HPF (NEGATIVE) 07/27/19 10:13 Ur Culture Indicated? Yes/culture set up 07/27/19 10:13 Stool Description 75g unformed brown 07/25/19 11:42 Stl Occult Blood (IFOB) Positive (NEGATIVE) A 07/25/19 11:42 Tissue Pathology To follow 07/26/19 11:29 Plan (1) Colostomy status: Status: Acute Plan: POD#2, Transverse loop colostomy. Output noted. Pt to be educated on care. F/u surgery recs. (2) Colonic mass: Status: Acute Plan: -Stool occult:positive, CEA 3.5 -Pathology pending (3) Bowel obstruction: Status: Acute Qualifiers: Intestinal obstruction extent: partial Intestinal obstruction type: other intestinal obstruction Qualified Code(s): K56.690 - Other partial intestinal obstruction Plan: -Surgery consulted (4) Hypothyroidism: Status: Acute Qualifiers: Hypothyroidism type: unspecified Qualified Code(s): E03.9 - Hypothyroidism, unspecified (5) Hypertension: Status: Acute Qualifiers: Hypertension type: essential hypertension Qualified Code(s): I10 - Essential (primary) hypertension (6) Gout: Status: Acute Qualifiers: Chronicity: unspecified Gout etiology: unspecified cause Gout site: unspecified site Qualified Code(s): M10.9 - Gout, unspecified (7) Hypokalemia: Status: Acute Plan: Supplement per protocol.
[2019-07-29] MEDS: LASIX PO SCH (08:52)
[2019-07-29] MEDS: PROCARDIA XL PO SCH (08:53)
[2019-07-29] MEDS: SYNTHROID INJ 100 mcg VIAL IVP SCH (08:53)
[2019-07-29] MEDS: MICRO K EXTEN CAP 10 MEQ PO SCH (08:53)
[2019-07-29] MEDS: ZYLOPRIM PO SCH (08:53)
[2019-07-29] MEDS: SYNTHROID 125 mcg TAB PO SCH ×2 (08:59→15:52)
[2019-07-29] MEDS: LOVENOX INJ 40 MG SYR SC SCH (09:03)
[2019-07-29] MEDS: CIPRO IV 400 MG PREMIX* 400 MG/200 ML IV.SOLN. IV SCH ×2 (10:26→20:50)
--- NOTE | 2019-07-29 12:00 | DR.PROGNOT ---
Hospital Progress Notes - Progress Note for Day of: Progress Note Date: 07/29/19 - Chief Complaint Chief Complaint: post op loop colostomy of the transverse colon. Pt is c/o mild pain around the colostomy . no nausea or vomiting . costomy is functioning well today . same diet and IV ATB . - Past Medical Family Social History Past Med/Fam/Surg Hx: No changes since H&P Allergies: Allergies No Known Drug Allergies Allergy (Verified 07/24/19 21:32) - Review Of Systems ROS: No change since H&P - Vital Signs Vital Signs: Temperature 98.7 F Pulse Rate [Left Brachial] 78 Pulse Rate 55 Respiratory Rate 20 Blood Pressure [Left Arm] 107/53 Blood Pressure 144/67 O2 Sat by Pulse Oximetry 91 - Physical Exam Oriented: Normal Eyes: Normal Ear: Normal Nose: Normal Cardiovascular: Irregular (irregular with PACs.) : Normal GI:Auscultation: Decreased GI:Palpation: Other (Distended) GI: Tenderness: Diffuse (moderate erythema Rt side abdominal wall and around s gokul .with mild tenderness , BS+), Moderate. negative: Rebound, Guarding, Rigidity Skin: Normal Musculoskeletal: Normal Psychiatric: Normal Mood Description: Calm Speech Pattern: Clear, Appropriate - Laboratory and Diagnostics Result Diagrams: 07/29/19 05:25 07/29/19 08:48 Labs: 07/27/19 10:13 Urine,Catheterized Urine Culture - Final Laboratory WBC 12.0 X10^3/uL (3.6-10.0) H 07/29/19 05:25 RBC 4.08 X10^6/uL (4.7-6.0) L 07/29/19 05:25 Hgb 12.5 g/dL (13.5-18.0) L 07/29/19 05:25 Hct 37.7 % (42.0-54.0) L 07/29/19 05:25 MCV 92.4 fL (80.0-100.0) 07/29/19 05:25 MCH 30.7 pg (27.0-34.0) 07/29/19 05:25 MCHC 33.2 g/dL (33.0-35.0) 07/29/19 05:25 RDW 14.9 % (11.6-16.5) 07/29/19 05:25 Plt Count 197 X10^3/uL (150.0-450.0) 07/29/19 05:25 Plt Count Comment Adequate (ADEQUATE) 07/29/19 05:25 MPV 9.3 fL (7.4-11.0) 07/29/19 05:25 Neut % (Auto) 65.4 % (42.0-75.0) 07/29/19 05:25 Lymph % (Auto) 19.4 % (21.0-51.0) L 07/29/19 05:25 [place] % (Auto) 12.5 % (0.0-13.0) 07/29/19 05:25 Eos % (Auto) 2.1 % (0.9-2.9) 07/29/19 05:25 Baso % (Auto) 0.6 % (0.2-1.0) 07/29/19 05:25 Neut # (Auto) 7.9 x10^3/uL (2.2-4.8) H 07/29/19 05:25 Lymph # (Auto) 2.3 X10^3/uL (1.3-2.9) 07/29/19 05:25 [place] # (Auto) 1.5 x10^3/uL (0.3-0.8) H 07/29/19 05:25 Eos # (Auto) 0.3 x10^3/uL (0.0-0.2) H 07/29/19 05:25 Baso # (Auto) 0.1 X10^3/uL (0.0-0.1) 07/29/19 05:25 Absolute Nucleated RBC 0.0 /100WBC 07/29/19 05:25 Plt Morphology Comment Normal (NORMAL) 07/29/19 05:25 RBC Morphology Normal (NORMAL) 07/29/19 05:25 PT 13.9 SECONDS (11.8-14.3) 07/27/19 06:10 INR Target Range - 07/27/19 06:10 INR 1.11 (0.8-1.3) 07/27/19 06:10 Sodium 139 mmol/L (136-145) 07/29/19 05:25 Corrected Sodium 140 mmol/L (136-145) 07/29/19 05:25 Potassium 3.7 mmol/L (3.5-5.1) 07/29/19 08:48 Chloride 104 mmol/L (98-107) 07/29/19 05:25 Carbon Dioxide 24.4 mmol/L (21-32) 07/29/19 05:25 BUN 3 mg/dL (7-18) L 07/29/19 05:25 Creatinine 0.86 mg/dL (0.70-1.30) 07/29/19 05:25 Est GFR (MDRD) Af Amer > 60 (>60) 07/29/19 05:25 Est GFR (MDRD) Non-Af > 60 (>60) 07/29/19 05:25 Glucose 132 mg/dL (65-99) H 07/29/19 05:25 Calcium 7.7 mg/dL (8.5-10.1) L 07/29/19 05:25 Corrected Calcium 9.4 mg/dL (8.5-10.1) 07/26/19 05:16 Magnesium 1.4 mg/dL (1.7-2.9) L 07/29/19 05:25 Total Bilirubin 0.60 mg/dL (0.2-1.0) 07/26/19 05:16 AST 22 Units/L (15-37) 07/26/19 05:16 ALT 13 Units/L (12-78) 07/26/19 05:16 Alkaline Phosphatase 72 Units/L (46-116) 07/26/19 05:16 Total Protein 5.9 g/dL (6.4-8.2) L 07/26/19 05:16 Albumin 2.6 g/dL (3.4-5.0) L 07/26/19 05:16 Globulin 3.3 g/dL (2.5-4.5) 07/26/19 05:16 Albumin/Globulin Ratio 0.8 Ratio (1.1-2.1) L 07/26/19 05:16 Carcinoembryonic Ag 3.5 ng/mL (0.0-3.0) H 07/25/19 04:29 Specimen Type Catherized urine 07/27/19 10:13 Urine Color Dark yellow (YELLOW) 07/27/19 10:13 Urine Appearance Clear (CLEAR) 07/27/19 10:13 Urine pH 5.0 (5.0 - 8.0) 07/27/19 10:13 Ur Specific [place] 1.025 (1.000-1.030) 07/27/19 10:13 Urine Protein 2+ (NEGATIVE) 07/27/19 10:13 Urine Glucose (UA) Negative (NEGATIVE) 07/27/19 10:13 Urine Ketones 3+ (NEGATIVE) 07/27/19 10:13 Urine Occult Blood Negative (NEGATIVE) 07/27/19 10:13 Urine Nitrite Positive (NEGATIVE) 07/27/19 10:13 Urine Bilirubin Negative (NEGATIVE) 07/27/19 10:13 Urine Urobilinogen Normal (NORMAL) 07/27/19 10:13 Ur Leukocyte Esterase 2+ (NEGATIVE) 07/27/19 10:13 Urine RBC 0-2 /HPF (0-3) 07/27/19 10:13 Urine WBC 5-10 /HPF (0-5) A 07/27/19 10:13 Ur Squamous Epith Cells Few /HPF (NEGATIVE) 07/27/19 10:13 Urine Bacteria Trace /HPF (NEGATIVE) 07/27/19 10:13 Urine Mucus Few /HPF (NEGATIVE) 07/27/19 10:13 Ur Culture Indicated? 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 s/p transverse loop colostomy .. on full liquid diet . on Lovenox . colostomy care and visiting nurse at the time of d/c. OOB - Problem Patient Problems: Patient Problems Colonic mass (Acute) K63.89 Colostomy status (Acute) Z93.3 Hypokalemia (Acute) E87.6 Gout (Acute) M10.9 Hypertension (Acute) I10 Hypothyroidism (Acute) E03.9 Bowel obstruction (Acute) K56.609
[2019-07-29] MEDS: ZOFRAN INJ 4 MG VIAL IVP PRN (12:03)
[2019-07-29] MEDS: MAGNESIUM SULFATE 1 GRAM/100 mL PREMIX 1 GM/100 ML BAG IV PRN ×4 (12:09→18:20)
--- NOTE | 2019-07-29 18:00 | PCM.PROG ---
Progress Note - Progress Note for Day of Date of Exam: 07/28/19 - Subjective Subjective: Pt is a 84 yo m pmhx of htn, hypothyroidism, gout, admitted for large bowel obstruction. He is s/p transverse loop colostomy per DR Duran on 07/27. He is POD#1. Pt this morning resting comfortably. He has colostomy without stool in collection bag this am. Pt reports pain is controlled, Tracy cath dc. and clear liquids started per Dr Duran's orders. - Past Medical Family Social History Past Med/Fam/Surg Hx: No changes since H&P Allergies: Allergies No Known Drug Allergies Allergy (Verified 07/24/19 21:32) - Review of Systems ROS: No change since H&P - Vital Signs and I&O's Vital Signs: Temperature 98.7 F Pulse Rate [Left Brachial] 86 Pulse Rate 55 Respiratory Rate 18 Blood Pressure [Left Arm] 105/56 Blood Pressure 144/67 O2 Sat by Pulse Oximetry 94 Intake and Output: Intake & Output 07/27/19 07/28/19 07/29/19 07/30/19 12:59 11:59 11:59 11:59 Intake Total 2460 / 2460 120 / 120 Output Total 1225 / 1225 Balance 1235 / 1235 120 / 120 - Physical Exam Oriented: Normal Eyes: Normal Ear: Normal Nose: Normal Respiratory: Diminished Cardiovascular: Irregular (irregular with PACs.) : Normal Auscultation: Bowel Sounds: Decreased Tenderness: Diffuse (moderate erythema Rt side abdominal wall and around stoma .with mild tenderness , BS+), Moderate. negative: Rebound, Guarding, Rigidity Skin: Normal, Other (colostomy present) Musculoskeletal: Normal Psychiatric: Normal Mood Description: Calm Speech Pattern: Clear, Appropriate - Laboratory and Diagnostics Result Diagrams: 07/29/19 05:25 07/29/19 08:48 Labs: 07/27/19 10:13 Urine,Catheterized Urine Culture - Final Laboratory WBC 12.0 X10^3/uL (3.6-10.0) H 07/29/19 05:25 RBC 4.08 X10^6/uL (4.7-6.0) L 07/29/19 05:25 Hgb 12.5 g/dL (13.5-18.0) L 07/29/19 05:25 Hct 37.7 % (42.0-54.0) L 07/29/19 05:25 MCV 92.4 fL (80.0-100.0) 07/29/19 05:25 MCH 30.7 pg (27.0-34.0) 07/29/19 05:25 MCHC 33.2 g/dL (33.0-35.0) 07/29/19 05:25 RDW 14.9 % (11.6-16.5) 07/29/19 05:25 Plt Count 197 X10^3/uL (150.0-450.0) 07/29/19 05:25 Plt Count Comment Adequate (ADEQUATE) 07/29/19 05:25 MPV 9.3 fL (7.4-11.0) 07/29/19 05:25 Neut % (Auto) 65.4 % (42.0-75.0) 07/29/19 05:25 Lymph % (Auto) 19.4 % (21.0-51.0) L 07/29/19 05:25 [place] % (Auto) 12.5 % (0.0-13.0) 07/29/19 05:25 Eos % (Auto) 2.1 % (0.9-2.9) 07/29/19 05:25 Baso % (Auto) 0.6 % (0.2-1.0) 07/29/19 05:25 Neut # (Auto) 7.9 x10^3/uL (2.2-4.8) H 07/29/19 05:25 Lymph # (Auto) 2.3 X10^3/uL (1.3-2.9) 07/29/19 05:25 [place] # (Auto) 1.5 x10^3/uL (0.3-0.8) H 07/29/19 05:25 Eos # (Auto) 0.3 x10^3/uL (0.0-0.2) H 07/29/19 05:25 Baso # (Auto) 0.1 X10^3/uL (0.0-0.1) 07/29/19 05:25 Absolute Nucleated RBC 0.0 /100WBC 07/29/19 05:25 Plt Morphology Comment Normal (NORMAL) 07/29/19 05:25 RBC Morphology Normal (NORMAL) 07/29/19 05:25 PT 13.9 SECONDS (11.8-14.3) 07/27/19 06:10 INR Target Range - 07/27/19 06:10 INR 1.11 (0.8-1.3) 07/27/19 06:10 Sodium 139 mmol/L (136-145) 07/29/19 05:25 Corrected Sodium 140 mmol/L (136-145) 07/29/19 05:25 Potassium 3.7 mmol/L (3.5-5.1) 07/29/19 08:48 Chloride 104 mmol/L (98-107) 07/29/19 05:25 Carbon Dioxide 24.4 mmol/L (21-32) 07/29/19 05:25 BUN 3 mg/dL (7-18) L 07/29/19 05:25 Creatinine 0.86 mg/dL (0.70-1.30) 07/29/19 05:25 Est GFR (MDRD) Af Amer > 60 (>60) 07/29/19 05:25 Est GFR (MDRD) Non-Af > 60 (>60) 07/29/19 05:25 Glucose 132 mg/dL (65-99) H 07/29/19 05:25 Calcium 7.7 mg/dL (8.5-10.1) L 07/29/19 05:25 Corrected Calcium 9.4 mg/dL (8.5-10.1) 07/26/19 05:16 Magnesium 1.4 mg/dL (1.7-2.9) L 07/29/19 05:25 Total Bilirubin 0.60 mg/dL (0.2-1.0) 07/26/19 05:16 AST 22 Units/L (15-37) 07/26/19 05:16 ALT 13 Units/L (12-78) 07/26/19 05:16 Alkaline Phosphatase 72 Units/L (46-116) 07/26/19 05:16 Total Protein 5.9 g/dL (6.4-8.2) L 07/26/19 05:16 Albumin 2.6 g/dL (3.4-5.0) L 07/26/19 05:16 Globulin 3.3 g/dL (2.5-4.5) 07/26/19 05:16 Albumin/Globulin Ratio 0.8 Ratio (1.1-2.1) L 07/26/19 05:16 Carcinoembryonic Ag 3.5 ng/mL (0.0-3.0) H 07/25/19 04:29 Specimen Type Catherized urine 07/27/19 10:13 Urine Color Dark yellow (YELLOW) 07/27/19 10:13 Urine Appearance Clear (CLEAR) 07/27/19 10:13 Urine pH 5.0 (5.0 - 8.0) 07/27/19 10:13 Ur Specific [place] 1.025 (1.000-1.030) 07/27/19 10:13 Urine Protein 2+ (NEGATIVE) 07/27/19 10:13 Urine Glucose (UA) Negative (NEGATIVE) 07/27/19 10:13 Urine Ketones 3+ (NEGATIVE) 07/27/19 10:13 Urine Occult Blood Negative (NEGATIVE) 07/27/19 10:13 Urine Nitrite Positive (NEGATIVE) 07/27/19 10:13 Urine Bilirubin Negative (NEGATIVE) 07/27/19 10:13 Urine Urobilinogen Normal (NORMAL) 07/27/19 10:13 Ur Leukocyte Esterase 2+ (NEGATIVE) 07/27/19 10:13 Urine RBC 0-2 /HPF (0-3) 07/27/19 10:13 Urine WBC 5-10 /HPF (0-5) A 07/27/19 10:13 Ur Squamous Epith Cells Few /HPF (NEGATIVE) 07/27/19 10:13 Urine Bacteria Trace /HPF (NEGATIVE) 07/27/19 10:13 Urine Mucus Few /HPF (NEGATIVE) 07/27/19 10:13 Ur Culture Indicated? Yes/culture set up 07/27/19 10:13 Stool Description 75g unformed brown 07/25/19 11:42 Stl Occult Blood (IFOB) Positive (NEGATIVE) A 07/25/19 11:42 Tissue Pathology To follow 07/26/19 11:29 - Plan (1) Colonic mass Status: Acute Plan: -Stool occult:positive, CEA 3.5. -Pathology pending (2) Colostomy status Status: Acute Plan: Transverse loop colostomy, followed by Dr Duran. labs this am stable, pain controlled, will allow clear liquids (3) Gout Status: Acute Qualifiers: (4) Hypertension Status: Acute Qualifiers: (5) Hypothyroidism Status: Acute Qualifiers:
[2019-07-29] MEDS: XALATAN EACHEYE SCH (20:54)
[2019-07-30] MEDS ORDERED: MAALOX or MYLANTA PO PRN (00:22)
[2019-07-30] MEDS: D5 1/2 NS 1000 ML 1,000 ML IV SCH ×4 (04:32→20:50)
[2019-07-30] MEDS: FLAGYL IV PREMIX 500 MG BAG 500 MG/100 ML BAG IV SCH ×4 (04:46→21:14)
[2019-07-30 04:53] LABS: BASOPHILS # (AUTO) 0.1 X10^3/uL (0.0-0.1); BASOPHILS % (AUTO) 0.7 % (0.2-1.0); EOSINOPHILS # (AUTO) 0.3 x10^3/uL (0.0-0.2); EOSINOPHILS % (AUTO) 2.8 % (0.9-2.9); HEMATOCRIT 38.4 % (42.0-54.0); HEMOGLOBIN 12.8 g/dL (13.5-18.0); LYMPHOCYTES % (AUTO) 16.1 % (21.0-51.0); MEAN CORPUSCULAR HEMOGLOBIN 30.7 pg (27.0-34.0); MEAN CORPUSCULAR HGB CONC 33.3 g/dL (33.0-35.0); MEAN CORPUSCULAR VOLUME 92.2 fL (80.0-100.0); MEAN PLATELET VOLUME 8.7 fL (7.4-11.0); MONOCYTES # (AUTO) 1.3 x10^3/uL (0.3-0.8); MONOCYTES % (AUTO) 10.8 % (0.0-13.0); NEUTROPHILS # (AUTO) 8.5 x10^3/uL (2.2-4.8); NEUTROPHILS % (AUTO) 69.6 % (42.0-75.0); PLATELET COUNT 228 X10^3/uL (150.0-450.0); RED BLOOD COUNT 4.16 X10^6/uL (4.7-6.0); WHITE BLOOD COUNT 12.2 X10^3/uL (3.6-10.0)
[2019-07-30 05:14] LABS: ALANINE AMINOTRANSFERASE 10 Units/L (12-78); ALBUMIN 2.2 g/dL (3.4-5.0); ALKALINE PHOSPHATASE 59 Units/L (46-116); ASPARTATE AMINO TRANSFERASE 14 Units/L (15-37); BLOOD UREA NITROGEN 2 mg/dL (7-18); CARBON DIOXIDE 27.7 mmol/L (21-32); CHLORIDE 103 mmol/L (98-107); COR CA(FOR HYPOALB) 9.4 mg/dL (8.5-10.1); COR NA(FOR HYPERGLY) 138 mmol/L (136-145); CREATININE 0.87 mg/dL (0.70-1.30); MAGNESIUM 1.9 mg/dL (1.7-2.9); SODIUM 137 mmol/L (136-145); TOTAL PROTEIN 5.6 g/dL (6.4-8.2); eGFR NON BLACK RACES > 60 (>60)
[2019-07-30] MEDS: PEPCID TAB 20 MG PO SCH ×2 (06:06→21:12)
[2019-07-30] MEDS: KLOR-CON PO PRN (06:06)
[2019-07-30] MEDS: CIPRO IV 400 MG PREMIX* 400 MG/200 ML IV.SOLN. IV SCH ×2 (08:45→21:13)
[2019-07-30] MEDS: LASIX PO SCH (08:46)
[2019-07-30] MEDS: ZYLOPRIM PO SCH (08:47)
[2019-07-30] MEDS: PROCARDIA XL PO SCH (08:47)
[2019-07-30] MEDS: MICRO K EXTEN CAP 10 MEQ PO SCH (08:47)
[2019-07-30] MEDS: LOVENOX INJ 40 MG SYR SC SCH (08:48)
--- NOTE | 2019-07-30 09:23 | PCM.PROG ---
Progress Note Progress Note for Day of Date of Exam: 07/30/19 Subjective Subjective: Pt is a 84 yo m pmhx of htn, hypothyroidism, gout, admitted for large bowel obstruction. He is s/p transverse loop colostomy after CT and proctosigmoidoscopy noted on obstructing mass. He is POD#3. Pt is resting comfortable this morning. He has colostomy bag with output noted. Yesterday conc erns was for possible cellulitis developing around colostomy bag, area of erythema has decreased today and per surgery likely d/t colostomy functioning early. No acute concerns overnight. CTAP(07/24/19):Impression:1.Short segment narrowing and mild mural thickening of the rectosigmoid colon with mild gaseous distention of the proximal colon as above. Although findings could simply represent peristalsis, underlying neoplasm with partial distal colonic obstruction is not excluded. Direct visualization with colonoscopy is recommended for further evaluation. 2.Diffuse colonic diverticulosis without diverticulitis, small hiatal hernia with evidence of GE reflux and additional findings as above. Past Medical Family Social History Past Med/Fam/Surg Hx: No changes since H&P Allergies: Allergies No Known Drug Allergies Allergy (Verified 07/24/19 21:32) Review of Systems ROS: No change since H&P Vital Signs and I&O's Vital Signs: Temperature 98.5 F Pulse Rate [Left Brachial] 75 Pulse Rate 55 Respiratory Rate 20 Blood Pressure [Right Arm] 117/57 Blood Pressure [Left Arm] 105/56 Blood Pressure 144/67 O2 Sat by Pulse Oximetry 93 Intake and Output: Intake & Output 07/28/19 07/28/19 07/29/19 07/30/19 00:59 23:59 23:59 23:59 Intake Total 1180 / 1180 2140 / 2140 Output Total 1225 / 1225 350 / 350 Balance -45 / -45 1790 / 1790 Physical Exam Oriented: Normal Eyes: Normal Ear: Normal Nose: Normal Respiratory: Diminished Cardiovascular: Irregular (irregular with PACs. ) : Normal Auscultation: Bowel Sounds: Decreased Tenderness: Diffuse (moderate erythema Rt side abdominal wall and around stoma .with mild tenderness , BS+) and Moderate; negative Rebound, Guarding and Rigidity Skin: Red (mild receeding rash around colostomy bag) and Other (colostomy present) Musculoskeletal: Normal Psychiatric: Normal Mood Description: Calm Speech Pattern: Clear and Appropriate Laboratory and Diagnostics Result Diagrams: 07/30/19 04:38 07/30/19 04:38 Labs: 07/27/19 10:13 Urine,Catheterized Urine Culture - Final Laboratory WBC 12.2 X10^3/uL (3.6-10.0) H 07/30/19 04:38 RBC 4.16 X10^6/uL (4.7-6.0) L 07/30/19 04:38 Hgb 12.8 g/dL (13.5-18.0) L 07/30/19 04:38 Hct 38.4 % (42.0-54.0) L 07/30/19 04:38 MCV 92.2 fL (80.0-100.0) 07/30/19 04:38 MCH 30.7 pg (27.0-34.0) 07/30/19 04:38 MCHC 33.3 g/dL (33.0-35.0) 07/30/19 04:38 RDW 15.0 % (11.6-16.5) 07/30/19 04:38 Plt Count 228 X10^3/uL (150.0-450.0) 07/30/19 04:38 Plt Count Comment Adequate (ADEQUATE) 07/29/19 05:25 MPV 8.7 fL (7.4-11.0) 07/30/19 04:38 Neut % (Auto) 69.6 % (42.0-75.0) 07/30/19 04:38 Lymph % (Auto) 16.1 % (21.0-51.0) L 07/30/19 04:38 [place] % (Auto) 10.8 % (0.0-13.0) 07/30/19 04:38 Eos % (Auto) 2.8 % (0.9-2.9) 07/30/19 04:38 Baso % (Auto) 0.7 % (0.2-1.0) 07/30/19 04:38 Neut # (Auto) 8.5 x10^3/uL (2.2-4.8) H 07/30/19 04:38 Lymph # (Auto) 2.0 X10^3/uL (1.3-2.9) 07/30/19 04:38 [place] # (Auto) 1.3 x10^3/uL (0.3-0.8) H 07/30/19 04:38 Eos # (Auto) 0.3 x10^3/uL (0.0-0.2) H 07/30/19 04:38 Baso # (Auto) 0.1 X10^3/uL (0.0-0.1) 07/30/19 04:38 Absolute Nucleated RBC 0.0 /100WBC 07/30/19 04:38 Plt Morphology Comment Normal (NORMAL) 07/29/19 05:25 RBC Morphology Normal (NORMAL) 07/29/19 05:25 PT 13.9 SECONDS (11.8-14.3) 07/27/19 06:10 INR Target Range - 07/27/19 06:10 INR 1.11 (0.8-1.3) 07/27/19 06:10 Sodium 137 mmol/L (136-145) 07/30/19 04:38 Corrected Sodium 138 mmol/L (136-145) 07/30/19 04:38 Potassium 3.4 mmol/L (3.5-5.1) L 07/30/19 04:38 Chloride 103 mmol/L (98-107) 07/30/19 04:38 Carbon Dioxide 27.7 mmol/L (21-32) 07/30/19 04:38 BUN 2 mg/dL (7-18) L 07/30/19 04:38 Creatinine 0.87 mg/dL (0.70-1.30) 07/30/19 04:38 Est GFR (MDRD) Af Amer > 60 (>60) 07/30/19 04:38 Est GFR (MDRD) Non-Af > 60 (>60) 07/30/19 04:38 Glucose 155 mg/dL (65-99) H 07/30/19 04:38 Calcium 8.0 mg/dL (8.5-10.1) L 07/30/19 04:38 Corrected Calcium 9.4 mg/dL (8.5-10.1) 07/30/19 04:38 Magnesium 1.9 mg/dL (1.7-2.9) 07/30/19 04:38 Total Bilirubin 0.40 mg/dL (0.2-1.0) 07/30/19 04:38 AST 14 Units/L (15-37) L 07/30/19 04:38 ALT 10 Units/L (12-78) L 07/30/19 04:38 Alkaline Phosphatase 59 Units/L (46-116) 07/30/19 04:38 Total Protein 5.6 g/dL (6.4-8.2) L 07/30/19 04:38 Albumin 2.2 g/dL (3.4-5.0) L 07/30/19 04:38 Globulin 3.4 g/dL (2.5-4.5) 07/30/19 04:38 Albumin/Globulin Ratio 0.6 Ratio (1.1-2.1) L 07/30/19 04:38 Carcinoembryonic Ag 3.5 ng/mL (0.0-3.0) H 07/25/19 04:29 Specimen Type Catherized urine 07/27/19 10:13 Urine Color Dark yellow (YELLOW) 07/27/19 10:13 Urine Appearance Clear (CLEAR) 07/27/19 10:13 Urine pH 5.0 (5.0 - 8.0) 07/27/19 10:13 Ur Specific [place] 1.025 (1.000-1.030) 07/27/19 10:13 Urine Protein 2+ (NEGATIVE) 07/27/19 10:13 Urine Glucose (UA) Negative (NEGATIVE) 07/27/19 10:13 Urine Ketones 3+ (NEGATIVE) 07/27/19 10:13 Urine Occult Blood Negative (NEGATIVE) 07/27/19 10:13 Urine Nitrite Positive (NEGATIVE) 07/27/19 10:13 Urine Bilirubin Negative (NEGATIVE) 07/27/19 10:13 Urine Urobilinogen Normal (NORMAL) 07/27/19 10:13 Ur Leukocyte Esterase 2+ (NEGATIVE) 07/27/19 10:13 Urine RBC 0-2 /HPF (0-3) 07/27/19 10:13 Urine WBC 5-10 /HPF (0-5) A 07/27/19 10:13 Ur Squamous Epith Cells Few /HPF (NEGATIVE) 07/27/19 10:13 Urine Bacteria Trace /HPF (NEGATIVE) 07/27/19 10:13 Urine Mucus Few /HPF (NEGATIVE) 07/27/19 10:13 Ur Culture Indicated? Yes/culture set up 07/27/19 10:13 Stool Description 75g unformed brown 07/25/19 11:42 Stl Occult Blood (IFOB) Positive (NEGATIVE) A 07/25/19 11:42 Tissue Pathology To follow 07/26/19 11:29 Plan (1) Colonic mass: Status: Acute Plan: -Stool occult:positive, CEA 3.5 -Pathology pending (2) Colostomy status: Status: Acute Plan: Transverse loop colostomy, followed by Dr Duran Labs this am stable, pain controlled, pt is on full liquid diet Possible discharge tomorrow (3) Gout: Status: Acute Qualifiers: Chronicity: chronic Gout etiology: unspecified cause Gout site: un specified site Presence of tophus: without tophus Qualified Code(s): M1A.9XX0 - Chronic gout, unspecified, without tophus (tophi) (4) Hypertension: Status: Acute Qualifiers: Hypertension type: essential hypertension Qualified Code(s): I10 - Essential (primary) hypertension (5) Hypothyroidism: Status: Acute Qualifiers: Hypothyroidism type: unspecified Qualified Code(s): E03.9 - Hypothyroidism, unspecified
--- NOTE | 2019-07-30 09:33 | DR.PROGNOT ---
Hospital Progress Notes - Progress Note for Day of: Progress Note Date: 07/30/19 - Chief Complaint Chief Complaint: less abdominal pain. no nausea or vomiting . costomy is functioning well.. - Past Medical Family Social History Past Med/Fam/Surg Hx: No changes since H&P Allergies: Allergies No Known Drug Allergies Allergy (Verified 07/24/19 21:32) - Review Of Systems ROS: No change since H&P - Vital Signs Vital Signs: Temperature 98.5 F Pulse Rate [Left Brachial] 75 Pulse Rate 55 Respiratory Rate 20 Blood Pressure [Right Arm] 117/57 Blood Pressure [Left Arm] 105/56 Blood Pressure 144/67 O2 Sat by Pulse Oximetry 93 - Physical Exam Oriented: Normal Eyes: Normal Ear: Normal Nose: Normal Respiratory: Diminished Cardiovascular: Irregular (irregular with PACs.) : Normal GI:Auscultation: Decreased GI:Palpation: Other (Distended) GI: Tenderness: Diffuse (moderate erythema Rt side abdominal wall and around stoma .with mild tenderness , BS+), Moderate. negative: Rebound, Guarding, Rigidity Skin: Normal, Other (colostomy present) Musculoskeletal: Normal Psychiatric: Normal Mood Description: Calm Speech Pattern: Clear, Appropriate - Laboratory and Diagnostics Result Diagrams: 07/30/19 04:38 07/30/19 04:38 Labs: 07/27/19 10:13 Urine,Catheterized Urine Culture - Final Laboratory WBC 12.2 X10^3/uL (3.6-10.0) H 07/30/19 04:38 RBC 4.16 X10^6/uL (4.7-6.0) L 07/30/19 04:38 Hgb 12.8 g/dL (13.5-18.0) L 07/30/19 04:38 Hct 38.4 % (42.0-54.0) L 07/30/19 04:38 MCV 92.2 fL (80.0-100.0) 07/30/19 04:38 MCH 30.7 pg (27.0-34.0) 07/30/19 04:38 MCHC 33.3 g/dL (33.0-35.0) 07/30/19 04:38 RDW 15.0 % (11.6-16.5) 07/30/19 04:38 Plt Count 228 X10^3/uL (150.0-450.0) 07/30/19 04:38 Plt Count Comment Adequate (ADEQUATE) 07/29/19 05:25 MPV 8.7 fL (7.4-11.0) 07/30/19 04:38 Neut % (Auto) 69.6 % (42.0-75.0) 07/30/19 04:38 Lymph % (Auto) 16.1 % (21.0-51.0) L 07/30/19 04:38 [place] % (Auto) 10.8 % (0.0-13.0) 07/30/19 04:38 Eos % (Auto) 2.8 % (0.9-2.9) 07/30/19 04:38 Baso % (Auto) 0.7 % (0.2-1.0) 07/30/19 04:38 Neut # (Auto) 8.5 x10^3/uL (2.2-4.8) H 07/30/19 04:38 Lymph # (Auto) 2.0 X10^3/uL (1.3-2.9) 07/30/19 04:38 [place] # (Auto) 1.3 x10^3/uL (0.3-0.8) H 07/30/19 04:38 Eos # (Auto) 0.3 x10^3/uL (0.0-0.2) H 07/30/19 04:38 Baso # (Auto) 0.1 X10^3/uL (0.0-0.1) 07/30/19 04:38 Absolute Nucleated RBC 0.0 /100WBC 07/30/19 04:38 Plt Morphology Comment Normal (NORMAL) 07/29/19 05:25 RBC Morphology Normal (NORMAL) 07/29/19 05:25 PT 13.9 SECONDS (11.8-14.3) 07/27/19 06:10 INR Target Range - 07/27/19 06:10 INR 1.11 (0.8-1.3) 07/27/19 06:10 Sodium 137 mmol/L (136-145) 07/30/19 04:38 Corrected Sodium 138 mmol/L (136-145) 07/30/19 04:38 Potassium 3.4 mmol/L (3.5-5.1) L 07/30/19 04:38 Chloride 103 mmol/L (98-107) 07/30/19 04:38 Carbon Dioxide 27.7 mmol/L (21-32) 07/30/19 04:38 BUN 2 mg/dL (7-18) L 07/30/19 04:38 Creatinine 0.87 mg/dL (0.70-1.30) 07/30/19 04:38 Est GFR (MDRD) Af Amer > 60 (>60) 07/30/19 04:38 Est GFR (MDRD) Non-Af > 60 (>60) 07/30/19 04:38 Glucose 155 mg/dL (65-99) H 07/30/19 04:38 Calcium 8.0 mg/dL (8.5-10.1) L 07/30/19 04:38 Corrected Calcium 9.4 mg/dL (8.5-10.1) 07/30/19 04:38 Magnesium 1.9 mg/dL (1.7-2.9) 07/30/19 04:38 Total Bilirubin 0.40 mg/dL (0.2-1.0) 07/30/19 04:38 AST 14 Units/L (15-37) L 07/30/19 04:38 ALT 10 Units/L (12-78) L 07/30/19 04:38 Alkaline Phosphatase 59 Units/L (46-116) 07/30/19 04:38 Total Protein 5.6 g/dL (6.4-8.2) L 07/30/19 04:38 Albumin 2.2 g/dL (3.4-5.0) L 07/30/19 04:38 Globulin 3.4 g/dL (2.5-4.5) 07/30/19 04:38 Albumin/Globulin Ratio 0.6 Ratio (1.1-2.1) L 07/30/19 04:38 Carcinoembryonic Ag 3.5 ng/mL (0.0-3.0) H 07/25/19 04:29 Specimen Type Catherized urine 07/27/19 10:13 Urine Color Dark yellow (YELLOW) 07/27/19 10:13 Urine Appearance Clear (CLEAR) 07/27/19 10:13 Urine pH 5.0 (5.0 - 8.0) 07/27/19 10:13 Ur Specific [place] 1.025 (1.000-1.030) 07/27/19 10:13 Urine Protein 2+ (NEGATIVE) 07/27/19 10:13 Urine Glucose (UA) Negative (NEGATIVE) 07/27/19 10:13 Urine Ketones 3+ (NEGATIVE) 07/27/19 10:13 Urine Occult Blood Negative (NEGATIVE) 07/27/19 10:13 Urine Nitrite Positive (NEGATIVE) 07/27/19 10:13 Urine Bilirubin Negative (NEGATIVE) 07/27/19 10:13 Urine Urobilinogen Normal (NORMAL) 07/27/19 10:13 Ur Leukocyte Esterase 2+ (NEGATIVE) 07/27/19 10:13 Urine RBC 0-2 /HPF (0-3) 07/27/19 10:13 Urine WBC 5-10 /HPF (0-5) A 07/27/19 10:13 Ur Squamous Epith Cells Few /HPF (NEGATIVE) 07/27/19 10:13 Urine Bacteria Trace /HPF (NEGATIVE) 07/27/19 10:13 Urine Mucus Few /HPF (NEGATIVE) 07/27/19 10:13 Ur Culture Indicated? 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 s/p transverse loop colostomy .. on soft diet . on Lovenox . Pt needs one week of PT,OT and help with colostomy care ( new colostomy ). OOB - Problem Patient Problems: Patient Problems Colonic mass (Acute) K63.89 Colostomy status (Acute) Z93.3 Hypokalemia (Acute) E87.6 Gout (Acute) M10.9 Hypertension (Acute) I10 Hypothyroidism (Acute) E03.9 Bowel obstruction (Acute) K56.609
[2019-07-30] MEDS: SYNTHROID 125 mcg TAB PO SCH (16:54)
[2019-07-30] MEDS: XALATAN EACHEYE SCH (21:17)
[2019-07-31] MEDS: FLAGYL IV PREMIX 500 MG BAG 500 MG/100 ML BAG IV SCH (04:38)
[2019-07-31] MEDS: D5 1/2 NS 1000 ML 1,000 ML IV SCH ×4 (04:43→20:56)
[2019-07-31 05:29] LABS: BASOPHILS # (AUTO) 0.1 X10^3/uL (0.0-0.1); BASOPHILS % (AUTO) 0.7 % (0.2-1.0); EOSINOPHILS # (AUTO) 0.4 x10^3/uL (0.0-0.2); EOSINOPHILS % (AUTO) 3.4 % (0.9-2.9); HEMOGLOBIN 12.2 g/dL (13.5-18.0); LYMPHOCYTES % (AUTO) 18.1 % (21.0-51.0); MEAN CORPUSCULAR HEMOGLOBIN 31.1 pg (27.0-34.0); MEAN CORPUSCULAR HGB CONC 33.9 g/dL (33.0-35.0); MEAN CORPUSCULAR VOLUME 91.8 fL (80.0-100.0); MEAN PLATELET VOLUME 8.8 fL (7.4-11.0); MONOCYTES # (AUTO) 1.2 x10^3/uL (0.3-0.8); MONOCYTES % (AUTO) 10.9 % (0.0-13.0); NEUTROPHILS # (AUTO) 7.6 x10^3/uL (2.2-4.8); NEUTROPHILS % (AUTO) 66.9 % (42.0-75.0); PLATELET COUNT 234 X10^3/uL (150.0-450.0); RED BLOOD COUNT 3.92 X10^6/uL (4.7-6.0); RED CELL DISTRIBUTION WIDTH 14.9 % (11.6-16.5); WHITE BLOOD COUNT 11.3 X10^3/uL (3.6-10.0)
[2019-07-31 05:38] LABS: ALANINE AMINOTRANSFERASE 7 Units/L (12-78); ALBUMIN 2.1 g/dL (3.4-5.0); ALKALINE PHOSPHATASE 52 Units/L (46-116); ASPARTATE AMINO TRANSFERASE 11 Units/L (15-37); BLOOD UREA NITROGEN 3 mg/dL (7-18); CALCIUM 7.7 mg/dL (8.5-10.1); CARBON DIOXIDE 16.1 mmol/L (21-32); CHLORIDE 106 mmol/L (98-107); COR CA(FOR HYPOALB) 9.2 mg/dL (8.5-10.1); COR NA(FOR HYPERGLY) 141 mmol/L (136-145); CREATININE 0.83 mg/dL (0.70-1.30); SODIUM 140 mmol/L (136-145); TOTAL PROTEIN 5.2 g/dL (6.4-8.2); eGFR NON BLACK RACES > 60 (>60)
[2019-07-31] MEDS: KLOR-CON PO PRN (06:23)
[2019-07-31] MEDS: LASIX PO SCH (08:34)
[2019-07-31] MEDS: PEPCID TAB 20 MG PO SCH ×2 (08:35→20:58)
[2019-07-31] MEDS: LOVENOX INJ 40 MG SYR SC SCH (08:35)
[2019-07-31] MEDS: ZYLOPRIM PO SCH (08:35)
[2019-07-31] MEDS: PROCARDIA XL PO SCH (08:35)
[2019-07-31] MEDS: MICRO K EXTEN CAP 10 MEQ PO SCH (08:35)
--- NOTE | 2019-07-31 09:04 | PCM.PROG ---
Progress Note Progress Note for Day of Date of Exam: 07/31/19 Subjective Subjective: Pt is a 84 yo m pmhx of htn, hypothyroidism, gout, admitted for large bowel obstruction. He is s/p transverse loop colostomy after CT and proctosigmoidoscopy noted on large bowel obstructing mass. He is POD#4. Pt is sitting up this morning. He has colostomy bag with output noted. He says that he has been tolerating po intake. in room with him and states she is learning how to provide colostomy care at home. No acute concerns yesterday or overnight. CTAP(07/24/19):Impression:1.Short segment narrowing and mild mural thickening of the rectosigmoid colon with mild gaseous distention of the proximal colon as above. Although findings could simply represent peristalsis, underlying neoplasm with partial distal colonic obstruction is not excluded. Direct visualization with colonoscopy is recommended for further evaluation. 2.Diffuse colonic diverticulosis without diverticulitis, small hiatal hernia with evidence of GE reflux and additional findings as above. Past Medical Family Social History Past Med/Fam/Surg Hx: No changes since H&P Allergies: Allergies No Known Drug Allergies Allergy (Verified 07/24/19 21:32) Review of Systems ROS: No change since H&P Vital Signs and I&O's Vital Signs: Temperature 98.2 F Pulse Rate [Left Brachial] 83 Pulse Rate 55 Respiratory Rate 20 Blood Pressure [Right Arm] 117/66 Blood Pressure [Left Arm] 105/56 Blood Pressure 144/67 O2 Sat by Pulse Oximetry 94 Intake and Output: Intake & Output 07/28/19 07/29/19 07/30/19 07/31/19 23:59 23:59 23:59 23:59 Intake Total 1180 / 1180 5480 / 5480 975 / 975 Output Total 1225 / 1225 1500 / 1500 150 / 150 Balance -45 / -45 3980 / 3980 825 / 825 Physical Exam Oriented: Normal Eyes: Normal Ear: Normal Nose: Normal Respiratory: Diminished Cardiovascular: Irregular (irregular with PACs. ) : Normal Auscultation: Bowel Sounds: Decreased Tenderness: Diffuse (moderate erythema Rt side abdominal wall and around stoma .with mild tenderness , BS+) and Moderate; negative Rebound, Guarding and Rigidity Skin: Normal and Other (colostomy present) Musculoskeletal: Normal Psychiatric: Normal Mood Description: Calm Speech Pattern: Clear and Appropriate Laboratory and Diagnostics Result Diagrams: 07/31/19 04:48 07/31/19 04:48 Labs: 07/27/19 10:13 Urine,Catheterized Urine Culture - Final Laboratory WBC 11.3 X10^3/uL (3.6-10.0) H 07/31/19 04:48 RBC 3.92 X10^6/uL (4.7-6.0) L 07/31/19 04:48 Hgb 12.2 g/dL (13.5-18.0) L 07/31/19 04:48 Hct 36.0 % (42.0-54.0) L 07/31/19 04:48 MCV 91.8 fL (80.0-100.0) 07/31/19 04:48 MCH 31.1 pg (27.0-34.0) 07/31/19 04:48 MCHC 33.9 g/dL (33.0-35.0) 07/31/19 04:48 RDW 14.9 % (11.6-16.5) 07/31/19 04:48 Plt Count 234 X10^3/uL (150.0-450.0) 07/31/19 04:48 Plt Count Comment Adequate (ADEQUATE) 07/29/19 05:25 MPV 8.8 fL (7.4-11.0) 07/31/19 04:48 Neut % (Auto) 66.9 % (42.0-75.0) 07/31/19 04:48 Lymph % (Auto) 18.1 % (21.0-51.0) L 07/31/19 04:48 [place] % (Auto) 10.9 % (0.0-13.0) 07/31/19 04:48 Eos % (Auto) 3.4 % (0.9-2.9) H 07/31/19 04:48 Baso % (Auto) 0.7 % (0.2-1.0) 07/31/19 04:48 Neut # (Auto) 7.6 x10^3/uL (2.2-4.8) H 07/31/19 04:48 Lymph # (Auto) 2.0 X10^3/uL (1.3-2.9) 07/31/19 04:48 [place] # (Auto) 1.2 x10^3/uL (0.3-0.8) H 07/31/19 04:48 Eos # (Auto) 0.4 x10^3/uL (0.0-0.2) H 07/31/19 04:48 Baso # (Auto) 0.1 X10^3/uL (0.0-0.1) 07/31/19 04:48 Absolute Nucleated RBC 0.0 /100WBC 07/31/19 04:48 Plt Morphology Comment Normal (NORMAL) 07/29/19 05:25 RBC Morphology Normal (NORMAL) 07/29/19 05:25 PT 13.9 SECONDS (11.8-14.3) 07/27/19 06:10 INR Target Range - 07/27/19 06:10 INR 1.11 (0.8-1.3) 07/27/19 06:10 Sodium 140 mmol/L (136-145) 07/31/19 04:48 Corrected Sodium 141 mmol/L (136-145) 07/31/19 04:48 Potassium 3.2 mmol/L (3.5-5.1) L 07/31/19 04:48 Chloride 106 mmol/L (98-107) 07/31/19 04:48 Carbon Dioxide 16.1 mmol/L (21-32) L 07/31/19 04:48 BUN 3 mg/dL (7-18) L 07/31/19 04:48 Creatinine 0.83 mg/dL (0.70-1.30) 07/31/19 04:48 Est GFR (MDRD) Af Amer > 60 (>60) 07/31/19 04:48 Est GFR (MDRD) Non-Af > 60 (>60) 07/31/19 04:48 Glucose 128 mg/dL (65-99) H 07/31/19 04:48 Calcium 7.7 mg/dL (8.5-10.1) L 07/31/19 04:48 Corrected Calcium 9.2 mg/dL (8.5-10.1) 07/31/19 04:48 Magnesium 1.7 mg/dL (1.7-2.9) 07/31/19 04:48 Total Bilirubin 0.40 mg/dL (0.2-1.0) 07/31/19 04:48 AST 11 Units/L (15-37) L 07/31/19 04:48 ALT 7 Units/L (12-78) L 07/31/19 04:48 Alkaline Phosphatase 52 Units/L (46-116) 07/31/19 04:48 Total Protein 5.2 g/dL (6.4-8.2) L 07/31/19 04:48 Albumin 2.1 g/dL (3.4-5.0) L 07/31/19 04:48 Globulin 3.1 g/dL (2.5-4.5) 07/31/19 04:48 Albumin/Globulin Ratio 0.7 Ratio (1.1-2.1) L 07/31/19 04:48 Carcinoembryonic Ag 3.5 ng/mL (0.0-3.0) H 07/25/19 04:29 Specimen Type Catherized urine 07/27/19 10:13 Urine Color Dark yellow (YELLOW) 07/27/19 10:13 Urine Appearance Clear (CLEAR) 07/27/19 10:13 Urine pH 5.0 (5.0 - 8.0) 07/27/19 10:13 Ur Specific [place] 1.025 (1.000-1.030) 07/27/19 10:13 Urine Protein 2+ (NEGATIVE) 07/27/19 10:13 Urine Glucose (UA) Negative (NEGATIVE) 07/27/19 10:13 Urine Ketones 3+ (NEGATIVE) 07/27/19 10:13 Urine Occult Blood Negative (NEGATIVE) 07/27/19 10:13 Urine Nitrite Positive (NEGATIVE) 07/27/19 10:13 Urine Bilirubin Negative (NEGATIVE) 07/27/19 10:13 Urine Urobilinogen Normal (NORMAL) 07/27/19 10:13 Ur Leukocyte Esterase 2+ (NEGATIVE) 07/27/19 10:13 Urine RBC 0-2 /HPF (0-3) 07/27/19 10:13 Urine WBC 5-10 /HPF (0-5) A 07/27/19 10:13 Ur Squamous Epith Cells Few /HPF (NEGATIVE) 07/27/19 10:13 Urine Bacteria Trace /HPF (NEGATIVE) 07/27/19 10:13 Urine Mucus Few /HPF (NEGATIVE) 07/27/19 10:13 Ur Culture Indicated? Yes/culture set up 07/27/19 10:13 Stool Description 75g unformed brown 07/25/19 11:42 Stl Occult Blood (IFOB) Positive (NEGATIVE) A 07/25/19 11:42 Tissue Pathology To follow 07/26/19 11:29 Plan (1) Colonic mass: Status: Acute Plan: -Stool occult:positive, CEA 3.5 -Pathology pending, Will need f/u with general surgery on discharge. (2) Colostomy status: Status: Acute Plan: Transverse loop colostomy, followed by Dr Renee Singh this am stable, pain controlled, pt tolerating po intake to be educated on colostomy care. (3) Gout: Status: Acute Qualifiers: Chronicity: chronic Gout etiology: unspecified cause Gout site: unspecified site Presence of tophus: without tophus Qualified Code(s): M1A.9XX0 - Chronic gout, unspecified, without tophus (tophi) (4) Hypertension: Status: Acute Qualifiers: Hypertension type: essential hypertension Qualified Code(s): I10 - Essential (primary) hypertension (5) Hypothyroidism: Status: Acute Qualifiers: Hypothyroidism type: unspecified Qualified Code(s): E03.9 - Hypothyroidism, unspecified
--- NOTE | 2019-07-31 11:21 | DR.PROGNOT ---
Hospital Progress Notes - Progress Note for Day of: Progress Note Date: 07/31/19 - Chief Complaint Chief Complaint: less abdominal pain. no nausea or vomiting . colostomy is functioning well. doing better with ambulation and colostomy care .. - Past Medical Family Social History Past Med/Fam/Surg Hx: No changes since H&P Allergies: Allergies No Known Drug Allergies Allergy (Verified 07/24/19 21:32) - Review Of Systems ROS: No change since H&P - Vital Signs Vital Signs: Temperature 98.5 F Pulse Rate [Left Brachial] 73 Pulse Rate 55 Respiratory Rate 18 Blood Pressure [Right Arm] 116/65 Blood Pressure [Left Arm] 105/56 Blood Pressure 144/67 O2 Sat by Pulse Oximetry 95 - Physical Exam Oriented: Normal Eyes: Normal Ear: Normal Nose: Normal Respiratory: Diminished Cardiovascular: Irregular (irregular with PACs.) : Normal GI:Auscultation: Decreased GI:Palpation: Other (Distended) GI: Tenderness: Diffuse (erythema is subsiding . nontender abdomen ,BS+. colostomyis healthy and functioning .), Moderate. negative: Rebound, Guarding, Rigidity Skin: Normal, Other (colostomy present) Musculoskeletal: Normal Psychiatric: Normal Mood Description: Calm Speech Pattern: Clear, Appropriate - Laboratory and Diagnostics Result Diagrams: 07/31/19 04:48 07/31/19 04:48 Labs: 07/27/19 10:13 Urine,Catheterized Urine Culture - Final Laboratory WBC 11.3 X10^3/uL (3.6-10.0) H 07/31/19 04:48 RBC 3.92 X10^6/uL (4.7-6.0) L 07/31/19 04:48 Hgb 12.2 g/dL (13.5-18.0) L 07/31/19 04:48 Hct 36.0 % (42.0-54.0) L 07/31/19 04:48 MCV 91.8 fL (80.0-100.0) 07/31/19 04:48 MCH 31.1 pg (27.0-34.0) 07/31/19 04:48 MCHC 33.9 g/dL (33.0-35.0) 07/31/19 04:48 RDW 14.9 % (11.6-16.5) 07/31/19 04:48 Plt Count 234 X10^3/uL (150.0-450.0) 07/31/19 04:48 Plt Count Comment Adequate (ADEQUATE) 07/29/19 05:25 MPV 8.8 fL (7.4-11.0) 07/31/19 04:48 Neut % (Auto) 66.9 % (42.0-75.0) 07/31/19 04:48 Lymph % (Auto) 18.1 % (21.0-51.0) L 07/31/19 04:48 [place] % (Auto) 10.9 % (0.0-13.0) 07/31/19 04:48 Eos % (Auto) 3.4 % (0.9-2.9) H 07/31/19 04:48 Baso % (Auto) 0.7 % (0.2-1.0) 07/31/19 04:48 Neut # (Auto) 7.6 x10^3/uL (2.2-4.8) H 07/31/19 04:48 Lymph # (Auto) 2.0 X10^3/uL (1.3-2.9) 07/31/19 04:48 [place] # (Auto) 1.2 x10^3/uL (0.3-0.8) H 07/31/19 04:48 Eos # (Auto) 0.4 x10^3/uL (0.0-0.2) H 07/31/19 04:48 Baso # (Auto) 0.1 X10^3/uL (0.0-0.1) 07/31/19 04:48 Absolute Nucleated RBC 0.0 /100WBC 07/31/19 04:48 Plt Morphology Comment Normal (NORMAL) 07/29/19 05:25 RBC Morphology Normal (NORMAL) 07/29/19 05:25 PT 13.9 SECONDS (11.8-14.3) 07/27/19 06:10 INR Target Range - 07/27/19 06:10 INR 1.11 (0.8-1.3) 07/27/19 06:10 Sodium 140 mmol/L (136-145) 07/31/19 04:48 Corrected Sodium 141 mmol/L (136-145) 07/31/19 04:48 Potassium 3.2 mmol/L (3.5-5.1) L 07/31/19 04:48 Chloride 106 mmol/L (98-107) 07/31/19 04:48 Carbon Dioxide 16.1 mmol/L (21-32) L 07/31/19 04:48 BUN 3 mg/dL (7-18) L 07/31/19 04:48 Creatinine 0.83 mg/dL (0.70-1.30) 07/31/19 04:48 Est GFR (MDRD) Af Amer > 60 (>60) 07/31/19 04:48 Est GFR (MDRD) Non-Af > 60 (>60) 07/31/19 04:48 Glucose 128 mg/dL (65-99) H 07/31/19 04:48 Calcium 7.7 mg/dL (8.5-10.1) L 07/31/19 04:48 Corrected Calcium 9.2 mg/dL (8.5-10.1) 07/31/19 04:48 Magnesium 1.7 mg/dL (1.7-2.9) 07/31/19 04:48 Total Bilirubin 0.40 mg/dL (0.2-1.0) 07/31/19 04:48 AST 11 Units/L (15-37) L 07/31/19 04:48 ALT 7 Units/L (12-78) L 07/31/19 04:48 Alkaline Phosphatase 52 Units/L (46-116) 07/31/19 04:48 Total Protein 5.2 g/dL (6.4-8.2) L 07/31/19 04:48 Albumin 2.1 g/dL (3.4-5.0) L 07/31/19 04:48 Globulin 3.1 g/dL (2.5-4.5) 07/31/19 04:48 Albumin/Globulin Ratio 0.7 Ratio (1.1-2.1) L 07/31/19 04:48 Carcinoembryonic Ag 3.5 ng/mL (0.0-3.0) H 07/25/19 04:29 Specimen Type Catherized urine 07/27/19 10:13 Urine Color Dark yellow (YELLOW) 07/27/19 10:13 Urine Appearance Clear (CLEAR) 07/27/19 10:13 Urine pH 5.0 (5.0 - 8.0) 07/27/19 10:13 Ur Specific [place] 1.025 (1.000-1.030) 07/27/19 10:13 Urine Protein 2+ (NEGATIVE) 07/27/19 10:13 Urine Glucose (UA) Negative (NEGATIVE) 07/27/19 10:13 Urine Ketones 3+ (NEGATIVE) 07/27/19 10:13 Urine Occult Blood Negative (NEGATIVE) 07/27/19 10:13 Urine Nitrite Positive (NEGATIVE) 07/27/19 10:13 Urine Bilirubin Negative (NEGATIVE) 07/27/19 10:13 Urine Urobilinogen Normal (NORMAL) 07/27/19 10:13 Ur Leukocyte Esterase 2+ (NEGATIVE) 07/27/19 10:13 Urine RBC 0-2 /HPF (0-3) 07/27/19 10:13 Urine WBC 5-10 /HPF (0-5) A 07/27/19 10:13 Ur Squamous Epith Cells Few /HPF (NEGATIVE) 07/27/19 10:13 Urine Bacteria Trace /HPF (NEGATIVE) 07/27/19 10:13 Urine Mucus Few /HPF (NEGATIVE) 07/27/19 10:13 Ur Culture Indicated? 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 s/p transverse loop colostomy .. on soft diet . on Lovenox . if family is able to manage the colostomy ,could be d/c in AM with VN.. f/u in 10 days . - Problem Patient Problems: Patient Problems Colonic mass (Acute) K63.89 Colostomy status (Acute) Z93.3 Hypokalemia (Acute) E87.6 Gout (Acute) M10.9 Hypertension (Acute) I10 Hypothyroidism (Acute) E03.9 Bowel obstruction (Acute) K56.609
[2019-07-31] MEDS: SYNTHROID 125 mcg TAB PO SCH (15:54)
[2019-07-31] MEDS: XALATAN EACHEYE SCH ×2 (20:58→20:59)
[2019-08-01] MEDS: D5 1/2 NS 1000 ML 1,000 ML IV SCH ×2 (03:18→04:53)
[2019-08-01 06:23] LABS: BASOPHILS # (AUTO) 0.1 X10^3/uL (0.0-0.1); BASOPHILS % (AUTO) 0.9 % (0.2-1.0); EOSINOPHILS # (AUTO) 0.4 x10^3/uL (0.0-0.2); EOSINOPHILS % (AUTO) 3.6 % (0.9-2.9); HEMATOCRIT 36.3 % (42.0-54.0); HEMOGLOBIN 12.4 g/dL (13.5-18.0); LYMPHOCYTES # (AUTO) 2.2 X10^3/uL (1.3-2.9); LYMPHOCYTES % (AUTO) 22.5 % (21.0-51.0); MEAN CORPUSCULAR HEMOGLOBIN 31.3 pg (27.0-34.0); MEAN CORPUSCULAR HGB CONC 34.1 g/dL (33.0-35.0); MEAN CORPUSCULAR VOLUME 91.8 fL (80.0-100.0); MEAN PLATELET VOLUME 8.5 fL (7.4-11.0); MONOCYTES # (AUTO) 1.3 x10^3/uL (0.3-0.8); MONOCYTES % (AUTO) 13.4 % (0.0-13.0); NEUTROPHILS # (AUTO) 5.8 x10^3/uL (2.2-4.8); NEUTROPHILS % (AUTO) 59.6 % (42.0-75.0); PLATELET COUNT 266 X10^3/uL (150.0-450.0); RED BLOOD COUNT 3.95 X10^6/uL (4.7-6.0); RED CELL DISTRIBUTION WIDTH 15.1 % (11.6-16.5); WHITE BLOOD COUNT 9.8 X10^3/uL (3.6-10.0)
[2019-08-01 06:45] LABS: ALBUMIN 2.2 g/dL (3.4-5.0); ALKALINE PHOSPHATASE 51 Units/L (46-116); ASPARTATE AMINO TRANSFERASE 12 Units/L (15-37); BLOOD UREA NITROGEN 2 mg/dL (7-18); CARBON DIOXIDE 26.6 mmol/L (21-32); CHLORIDE 106 mmol/L (98-107); COR CA(FOR HYPOALB) 9.4 mg/dL (8.5-10.1); COR NA(FOR HYPERGLY) 141 mmol/L (136-145); CREATININE 0.85 mg/dL (0.70-1.30); SODIUM 140 mmol/L (136-145); TOTAL PROTEIN 5.4 g/dL (6.4-8.2); eGFR NON BLACK RACES > 60 (>60)
[2019-08-01 06:54] LABS: ALANINE AMINOTRANSFERASE 7 Units/L (12-78)
[2019-08-01 08:14] VITALS: BP 121/57
--- NOTE | 2019-08-01 09:20 | W.DIS.FURT ---
Summary of Discharge Discharge Summary of Date Date of Exam: 08/01/19 Admission Date Date of Admission: 07/24/19 Admission Diagnosis Patient Problems (Updated 08/01/19 @ 09:19 by Gabe Angel) Colonic mass (Acute) K63.89 Colostomy status (Acute) Z93.3 Hypokalemia (Resolved) E87.6 Gout (Chronic) M10.9 Hypertension (Chronic) I10 Hypothyroidism (Chronic) E03.9 Bowel obstruction (Acute) K56.609 Hospital Course: Pt is a 84 yo m pmhx of htn, hypothyroidism, gout, that was admitted for large bowel obstruction. While inpatient he had transverse loop colostomy after CT and proctosigmoidoscopy noted on large bowel obstructing mass. He recovered well w/o complications. On day of discharge his vs wnl, physical exam unremarkable, colostomy bag noted w/ good output, surrounding skin no erythema. He is t olerating po intake. was educated on colostomy care to continue at home. (1) Colonic mass: -Stool occult:positive, CEA 3.5 -Path pending. Pt will f/u with general surgery(Dr Duran) within 10 days of discharge. F/u w/ pcp in 1 week. (2) Colostomy status:-Transverse loop colostomy (3) Gout: (4) Hypertension (5) Hypothyroidism: CTAP(07/24/19):Impression:1.Short segment narrowing and mild mural thickening of the rectosigmoid colon with mild gaseous distention of the proximal colon as above. Although findings could simply represent peristalsis, underlying neoplasm with partial distal colonic obstruction is not excluded. Direct visualization with colonoscopy is recommended for further evaluation. 2.Diffuse colonic diverticulosis without diverticulitis, small hiatal hernia with evidence of GE reflux and additional findings as above. Vital Signs: Vital Signs (72 hours) 07/29/19 12:00 07/29/19 16:00 07/29/19 20:00 Temperature 98.0 F 98.7 F 98.4 F Pulse Rate [Left Brachial] 72 86 88 Respiratory Rate 20 18 20 Blood Pressure [Left Arm] 109/54 105/56 Blood Pressure [Right Arm] 107/53 O2 Sat by Pulse Oximetry 94 L 94 L 94 L 07/30/19 00:00 07/30/19 04:00 07/30/19 08:00 Temperature 98.7 F 98.5 F 97.7 F Pulse Rate [Left Brachial] 73 75 63 Respiratory Rate 20 20 18 Blood Pressure [Left Arm] Blood Pressure [Right Arm] 109/56 117/57 115/52 O2 Sat by Pulse Oximetry 94 L 93 L 96 07/30/19 12:00 07/30/19 16:00 07/30/19 20:00 Temperature 98.0 F 98.1 F 98.1 F Pulse Rate [Left Brachial] 56 L 86 83 Respiratory Rate 18 18 20 Blood Pressure [Left Arm] Blood Pressure [Right Arm] 168/65 107/56 113/56 O2 Sat by Pulse Oximetry 96 96 94 L 07/31/19 00:00 07/31/19 04:00 07/31/19 08:00 Temperature 98.3 F 98.2 F 98.5 F Pulse Rate [Left Brachial] 84 83 73 Respiratory Rate 18 20 18 Blood Pressure [Left Arm] Blood Pressure [Right Arm] 109/62 117/66 116/65 O2 Sat by Pulse Oximetry 95 94 L 95 07/31/19 12:00 07/31/19 16:00 07/31/19 20:00 Temperature 97.9 F 97.8 F 98.4 F Pulse Rate [Left Brachial] 74 71 78 Respiratory Rate 18 18 20 Blood Pressure [Left Arm] 116/58 Blood Pressure [Right Arm] 104/50 105/58 O2 Sat by Pulse Oximetry 94 L 95 97 08/01/19 00:00 08/01/19 04:00 08/01/19 08:00 Temperature 98.3 F 98.1 F 97.9 F Pulse Rate [Left Brachial] 69 74 69 Respiratory Rate 20 18 18 Blood Pressure [Left Arm] 121/57 Blood Pressure [Right Arm] 112/56 109/58 O2 Sat by Pulse Oximetry 96 95 95 Labs: Laboratory Last Values WBC 9.8 X10^3/uL (3.6-10.0) 08/01/19 05:59 RBC 3.95 X10^6/uL (4.7-6.0) L 08/01/19 05:59 Hgb 12.4 g/dL (13.5-18.0) L 08/01/19 05:59 Hct 36.3 % (42.0-54.0) L 08/01/19 05:59 MCV 91.8 fL (80.0-100.0) 08/01/19 05:59 MCH 31.3 pg (27.0-34.0) 08/01/19 05:59 MCHC 34.1 g/dL (33.0-35.0) 08/01/19 05:59 RDW 15.1 % (11.6-16.5) 08/01/19 05:59 Plt Count 266 X10^3/uL (150.0-450.0) 08/01/19 05:59 Plt Count Comment Adequate (ADEQUATE) 07/29/19 05:25 MPV 8.5 fL (7.4-11.0) 08/01/19 05:59 Neut % (Auto) 59.6 % (42.0-75.0) 08/01/19 05:59 Lymph % (Auto) 22.5 % (21.0-51.0) 08/01/19 05:59 [place] % (Auto) 13.4 % (0.0-13.0) H 08/01/19 05:59 Eos % (Auto) 3.6 % (0.9-2.9) H 08/01/19 05:59 Baso % (Auto) 0.9 % (0.2-1.0) 08/01/19 05:59 Neut # (Auto) 5.8 x10^3/uL (2.2-4.8) H 08/01/19 05:59 Lymph # (Auto) 2.2 X10^3/uL (1.3-2.9) 08/01/19 05:59 [place] # (Auto) 1.3 x10^3/uL (0.3-0.8) H 08/01/19 05:59 Eos # (Auto) 0.4 x10^3/uL (0.0-0.2) H 08/01/19 05:59 Baso # (Auto) 0.1 X10^3/uL (0.0-0.1) 08/01/19 05:59 Absolute Nucleated RBC 0.1 /100WBC 08/01/19 05:59 Plt Morphology Comment Normal (NORMAL) 07/29/19 05:25 RBC Morphology Normal (NORMAL) 07/29/19 05:25 PT 13.9 SECONDS (11.8-14.3) 07/27/19 06:10 INR Target Range - 07/27/19 06:10 INR 1.11 (0.8-1.3) 07/27/19 06:10 Sodium 140 mmol/L (136-145) 08/01/19 05:59 Corrected Sodium 141 mmol/L (136-145) 08/01/19 05:59 Potassium 3.4 mmol/L (3.5-5.1) L 08/01/19 05:59 Chloride 106 mmol/L (98-107) 08/01/19 05:59 Carbon Dioxide 26.6 mmol/L (21-32) 08/01/19 05:59 BUN 2 mg/dL (7-18) L 08/01/19 05:59 Creatinine 0.85 mg/dL (0.70-1.30) 08/01/19 05:59 Est GFR (MDRD) Af Amer > 60 (>60) 08/01/19 05:59 Est GFR (MDRD) Non-Af > 60 (>60) 08/01/19 05:59 Glucose 126 mg/dL (65-99) H 08/01/19 05:59 Calcium 8.0 mg/dL (8.5-10.1) L 08/01/19 05:59 Corrected Calcium 9.4 mg/dL (8.5-10.1) 08/01/19 05:59 Magnesium 1.7 mg/dL (1.7-2.9) 08/01/19 05:59 Total Bilirubin 0.30 mg/dL (0.2-1.0) 08/01/19 05:59 AST 12 Units/L (15-37) L 08/01/19 05:59 ALT 7 Units/L (12-78) L 08/01/19 05:59 Alkaline Phosphatase 51 Units/L (46-116) 08/01/19 05:59 Total Protein 5.4 g/dL (6.4-8.2) L 08/01/19 05:59 Albumin 2.2 g/dL (3.4-5.0) L 08/01/19 05:59 Globulin 3.2 g/dL (2.5-4.5) 08/01/19 05:59 Albumin/Globulin Ratio 0.7 Ratio (1.1-2.1) L 08/01/19 05:59 Carcinoembryonic Ag 3.5 ng/mL (0.0-3.0) H 07/25/19 04:29 Specimen Type Catherized urine 07/27/19 10:13 Urine Color Dark yellow (YELLOW) 07/27/19 10:13 Urine Appearance Clear (CLEAR) 07/27/19 10:13 Urine pH 5.0 (5.0 - 8.0) 07/27/19 10:13 Ur Specific [place] 1.025 (1.000-1.030) 07/27/19 10:13 Urine Protein 2+ (NEGATIVE) 07/27/19 10:13 Urine Glucose (UA) Negative (NEGATIVE) 07/27/19 10:13 Urine Ketones 3+ (NEGATIVE) 07/27/19 10:13 Urine Occult Blood Negative (NEGATIVE) 07/27/19 10:13 Urine Nitrite Positive (NEGATIVE) 07/27/19 10:13 Urine Bilirubin Negative (NEGATIVE) 07/27/19 10:13 Urine Urobilinogen Normal (NORMAL) 07/27/19 10:13 Ur Leukocyte Esterase 2+ (NEGATIVE) 07/27/19 10:13 Urine RBC 0-2 /HPF (0-3) 07/27/19 10:13 Urine WBC 5-10 /HPF (0-5) A 07/27/19 10:13 Ur Squamous Epith Cells Few /HPF (NEGATIVE) 07/27/19 10:13 Urine Bacteria Trace /HPF (NEGATIVE) 07/27/19 10:13 Urine Mucus Few /HPF (NEGATIVE) 07/27/19 10:13 Ur Culture Indicated? Yes/culture set up 07/27/19 10:13 Stool Description 75g unformed brown 07/25/19 11:42 Stl Occult Blood (IFOB) Positive (NEGATIVE) A 07/25/19 11:42 Tissue Pathology To follow 07/26/19 11:29 Reason For Visit: BOWEL OBSTRUCTION Discharge Date Discharge Date: 08/01/19 Discharge Diagnosis All Active Problems (Updated 08/01/19 @ 09:19 by Gabe Angel) Colonic mass (Acute) Colostomy status (Acute) Gout (Chronic) Hypertension (Chronic) Hypothyroidism (Chronic) Bowel obstruction (Acute) Plan of Treatment: Continue with present treatment and follow up plan. Pt is to keep follow up appointment as instructed and take medications as ordered. Discharge Medications Discharge Medications: No Known Drug Allergies Allergy (Verified 07/24/19 21:32) CONTINUE taking the following medications allopurinol 300 mg PO BID 07/24/19 [History] clotrimazole 1 applic TOPICAL BID 07/24/19 [History] furosemide 20 mg PO DAILY 07/24/19 [History] latanoprost 1 drp OPHTHALMIC (EYE) HS 07/24/19 [History] levothyroxine 125 mcg PO DAILY 07/24/19 [History] nifedipine 30 mg PO DAILY 07/24/19 [History] potassium chloride 10 meq PO DAILY 07/24/19 [History] triamcinolone acetonide 1 applic TOPICAL BID PRN 07/24/19 [History] Follow up and Referral Follow Up: 1 Week Discharge Disposition Discharge Disposition: Home
[2019-08-01] MEDS: MICRO K EXTEN CAP 10 MEQ PO SCH (09:41)
[2019-08-01] MEDS: MAGNESIUM SULFATE 1 GRAM/100 mL PREMIX 1 GM/100 ML BAG IV PRN (09:41)
[2019-08-01] MEDS: LOVENOX INJ 40 MG SYR SC SCH (09:42)
[2019-08-01] MEDS: LASIX PO SCH (09:42)
[2019-08-01] MEDS: ZYLOPRIM PO SCH (09:42)
[2019-08-01] MEDS: PEPCID TAB 20 MG PO SCH (09:42)
[2019-08-01] MEDS: PROCARDIA XL PO SCH (09:42)
== END 2019-08-01 12:40 | disposition home or self-care (01) | DRG 327 ==
LOC: MED/SURG
PROVIDERS: ADMIT Family Medicine; ATTEND Family Medicine
CPT/HCPCS: 36415; 71010; 71045; 74000; 74018; 80048; 80053; 81001; 82270; 82378; 83735; 84132; 85025; 85610; 87086; 93005; 93306; 94760; 97110; 97116; 97162; 99100; A4216; A4217; A4222; J3490; S0030; G0378; J0330; J0744; J1170; J1650; J2270; J2405; J2704; J2710; J3010; J3475; J3480; J7030; J7040; J7120; S5010

== ENCOUNTER 2019-09-23 08:14 | Inpatient (IN) ==
[2019-09-23] MEDS ORDERED: NORCURON INJ 10 MG VIAL ONE (08:16)
[2019-09-23] MEDS ORDERED: ZOFRAN INJ 4 MG VIAL ONE (08:16)
[2019-09-23] MEDS ORDERED: QUELICIN (OR ANECTINE) ONE (08:16)
[2019-09-23] MEDS ORDERED: ULTANE GAS IN ONE (08:16)
[2019-09-23] MEDS ORDERED: EPHEDRINE SULFATE INJ ONE (08:16)
[2019-09-23] MEDS ORDERED: DIPRIVAN VIAL ONE (08:16)
[2019-09-23] MEDS ORDERED: SUPRANE ONE (08:16)
[2019-09-23] MEDS ORDERED: ROBINUL ONE (08:16)
[2019-09-23] MEDS ORDERED: ANCEF 1 GRAM IV PREMIX* 2 G/100 ML BAG IV ONE (09:12)
[2019-09-23] MEDS ORDERED: LR 1000 ML IV 1,000 ML IV ONE ×3 (09:13→13:58)
[2019-09-23 09:41] VITALS: BMI 26.4
[2019-09-23] MEDS ORDERED: BACITRACIN VIAL ONE (10:39)
[2019-09-23] MEDS ORDERED: DILAUDID INJ ONE (10:44)
[2019-09-23] MEDS ORDERED: FENTANYL INJ 250 mcg ONE (10:44)
[2019-09-23] MEDS ORDERED: LEVAQUIN PREMIX IV 500 MG 500 MG/100 ML BAG IV ONE (11:32)
[2019-09-23 12:35] LABS: BILIRUBIN,URINE NEGATIVE (NEGATIVE); BLOOD/HEMOGLOBIN,URINE NEGATIVE (NEGATIVE); GLUCOSE, URINE NEGATIVE (NEGATIVE); KETONES,URINE 1+ (NEGATIVE); LEUKOCYTE ESTERASE ,URINE NEGATIVE (NEGATIVE); NITRITES,URINE NEGATIVE (NEGATIVE); PROTEIN,URINE NEGATIVE (NEGATIVE); UROBILINOGEN,URINE NORMAL (NORMAL)
[2019-09-23 12:41] LABS: APPEARANCE,URINE CLEAR (CLEAR); COLOR,URINE YELLOW (YELLOW)
[2019-09-23] MEDS ORDERED: BENADRYL INJ 50 MG VIAL IVP PRN (14:12)
[2019-09-23] MEDS ORDERED: REGLAN INJ 10 MG VIAL IVP PRN (14:12)
[2019-09-23] MEDS ORDERED: ZOFRAN INJ 4 MG VIAL IVP PRN (14:12)
[2019-09-23] MEDS ORDERED: PHENERGAN INJ 25 MG IM PRN (14:12)
[2019-09-23] MEDS: DILAUDID INJ IVP PRN ×4 (14:52→18:21)
[2019-09-23] MEDS: D5 1/2 NS 1000 ML 1,000 ML IV SCH ×2 (15:20→21:59)
[2019-09-23] MEDS: FLAGYL IV PREMIX 500 MG BAG 500 MG/100 ML BAG IV SCH ×2 (16:08→21:59)
[2019-09-23 16:41] LABS: ALANINE AMINOTRANSFERASE 12 Units/L (12-78); ALBUMIN 2.9 g/dL (3.4-5.0); ALKALINE PHOSPHATASE 102 Units/L (46-116); ASPARTATE AMINO TRANSFERASE 24 Units/L (15-37); BLOOD UREA NITROGEN 9 mg/dL (7-18); CALCIUM 8.5 mg/dL (8.5-10.1); CARBON DIOXIDE 25.6 mmol/L (21-32); CHLORIDE 103 mmol/L (98-107); COR CA(FOR HYPOALB) 9.4 mg/dL (8.5-10.1); COR NA(FOR HYPERGLY) 140 mmol/L (136-145); CREATININE 0.87 mg/dL (0.70-1.30); SODIUM 139 mmol/L (136-145); TOTAL PROTEIN 6.5 g/dL (6.4-8.2); eGFR NON BLACK RACES > 60 (>60)
--- NOTE | 2019-09-23 17:11 | DR.H&P ---
H&P History & Physical for Day of: H&P Date: 09/23/19 Chief Complaint Chief Complaint: Post-op care Allergies Allergies Allergy/AdvReac Type Severity Reaction Status Date / Time No Known Drug Allergies Allergy Verified 07/24/19 21:32 History of Present Illness History of Present Illness: Mr. Nayak is a 84y/o male presented for surgical procedure today for colon cancer. He had colon resection with anastomosis done today by Dr. Grande. He is currently in the ICU for post-op care. No surgical complications during the procedure. His pain is well controlled with Dilaudid. He denies any other complaints. Past Medical History Past Medical History: Gout, Hypertension and Hypothyroidism Past Surgical History Surgical History: Appendectomy, Bowel Resection and Ortho Surgery Social History Type of Tobacco Use: None Does any household member use tobacco: No Alcohol Use: None Drug Use: None Medications Home Medications: No Known Drug Allergies Allergy (Verified 07/24/19 21:32) Labs Result Diagrams: 09/23/19 16:19 Labs: Laboratory Sodium 139 mmol/L (136-145) 09/23/19 16:19 Corrected Sodium 140 mmol/L (136-145) 09/23/19 16:19 Potassium 4.4 mmol/L (3.5-5.1) 09/23/19 16:19 Chloride 103 mmol/L (98-107) 09/23/19 16:19 Carbon Dioxide 25.6 mmol/L (21-32) 09/23/19 16:19 BUN 9 mg/dL (7-18) 09/23/19 16:19 Creatinine 0.87 mg/dL (0.70-1.30) 09/23/19 16:19 Est GFR (MDRD) Af Amer > 60 (>60) 09/23/19 16:19 Est GFR (MDRD) Non-Af > 60 (>60) 09/23/19 16:19 Glucose 155 mg/dL (65-99) H 09/23/19 16:19 Calcium 8.5 mg/dL (8.5-10.1) 09/23/19 16:19 Corrected Calcium 9.4 mg/dL (8.5-10.1) 09/23/19 16:19 Total Bilirubin 1.00 mg/dL (0.2-1.0) 09/23/19 16:19 AST 24 Units/L (15-37) 09/23/19 16:19 ALT 12 Units/L (12-78) 09/23/19 16:19 Alkaline Phosphatase 102 Units/L (46-116) 09/23/19 16:19 Total Protein 6.5 g/dL (6.4-8.2) 09/23/19 16:19 Albumin 2.9 g/dL (3.4-5.0) L 09/23/19 16:19 Globulin 3.6 g/dL (2.5-4.5) 09/23/19 16:19 Albumin/Globulin Ratio 0.8 Ratio (1.1-2.1) L 09/23/19 16:19 Specimen Type Cancelled 09/23/19 11:40 Specimen Type Catherized urine 09/23/19 11:40 Urine Color Cancelled 09/23/19 11:40 Urine Color Yellow (YELLOW) 09/23/19 11:40 Urine Appearance Cancelled 09/23/19 11:40 Urine Appearance Clear (CLEAR) 09/23/19 11:40 Urine pH 6.0 (5.0 - 8.0) 09/23/19 11:40 Ur Specific [place] 1.015 (1.000-1.030) 09/23/19 11:40 Urine Protein Negative (NEGATIVE) 09/23/19 11:40 Urine Glucose (UA) Negative (NEGATIVE) 09/23/19 11:40 Urine Ketones 1+ (NEGATIVE) 09/23/19 11:40 Urine Occult Blood Negative (NEGATIVE) 09/23/19 11:40 Urine Nitrite Negative (NEGATIVE) 09/23/19 11:40 Urine Bilirubin Negative (NEGATIVE) 09/23/19 11:40 Urine Urobilinogen Normal (NORMAL) 09/23/19 11:40 Ur Leukocyte Esterase Negative (NEGATIVE) 09/23/19 11:40 Urine RBC Cancelled 09/23/19 11:40 Urine WBC Cancelled 09/23/19 11:40 Ur Squamous Epith Cells Cancelled 09/23/19 11:40 Ur Transition Epith Cell Cancelled 09/23/19 11:40 Ur Renal Epithelial Cell Cancelled 09/23/19 11:40 Calcium Oxalate Crystal Cancelled 09/23/19 11:40 Cystine Crystals Cancelled 09/23/19 11:40 Uric Acid Crystals Cancelled 09/23/19 11:40 Triple Phos Crystals Cancelled 09/23/19 11:40 Tyrosine Crystals Cancelled 09/23/19 11:40 Other Crystals Cancelled 09/23/19 11:40 Amorphous Sediment Cancelled 09/23/19 11:40 Urine Bacteria Cancelled 09/23/19 11:40 Hyaline Casts Cancelled 09/23/19 11:40 Granular Casts Cancelled 09/23/19 11:40 Fine Granular Casts Cancelled 09/23/19 11:40 Coarse Granular Casts Cancelled 09/23/19 11:40 RBC Casts Cancelled 09/23/19 11:40 Other Casts Cancelled 09/23/19 11:40 Urine Mucus Cancelled 09/23/19 11:40 Urine Trichomonas Cancelled 09/23/19 11:40 Urine Yeast Cancelled 09/23/19 11:40 Urine Sperm Cancelled 09/23/19 11:40 Ur Culture Indicated? Cancelled 09/23/19 11:40 Tissue Pathology To follow 09/23/19 14:25 Review of Systems Constitutional: No Symptoms Reported Eyes: No Symptoms Reported ENT: No Symptoms Reported Respiratory: No Symptoms Reported Cardiovascular: No Symptoms Reported Gastrointestinal: Abdominal Pain Genitourinary: No Symptoms Reported Musculoskeletal: No Symptoms Reported Skin: No Symptoms Reported Neurological: No Symptoms Reported Physical Exam Vital Signs: Temperature 97.5 F Pulse Rate [Apical] 97 Pulse Rate 92 Respiratory Rate 18 Blood Pressure [Right Arm] 134/68 Blood Pressure [Left Arm] 121/57 Blood Pressure 136/65 O2 Sat by Pulse Oximetry 95 Oriented: Normal Eyes: Normal Respiratory: Clear Throughout Cardiovascular: Normal Auscultation: Bowel Sounds: Other (surgical site dressed, no bleeding noted. ) Tenderness: Diffuse Skin: Normal Musculoskeletal: Normal Psychiatric: Normal Mood Description: Calm Affect: Normal Speech Pattern: Clear and Appropriate Assessment/Plan (1) S/P colon resection: Status: Acute Plan: Continue care as per Surgery, NPO, pain control and IV fluids Monitor UOP (2) Colonic mass: Status: Acute (3) Hypertension: Qualifiers: Hypertension type: essential hypertension Qualified Code(s): I10 - Essential (primary) hypertension Status: Chronic Plan: resume nifedipine, hold Lasix (4) Hypothyroidism: Qualifiers: Hypothyroidism type: unspecified Qualified Code(s): E03.9 - Hypothyroidism, unspecified Status: Chronic Plan: resume levothyroxine Review H&P Reviewed: Yes Patient was examined?: Yes
[2019-09-24] MEDS: DILAUDID INJ IVP PRN ×2 (01:17→19:20)
[2019-09-24 05:41] LABS: BASOPHILS % (AUTO) 0.1 % (0.2-1.0); HEMATOCRIT 39.5 % (42.0-54.0); HEMOGLOBIN 12.9 g/dL (13.5-18.0); LYMPHOCYTES # (AUTO) 2.1 X10^3/uL (1.3-2.9); MEAN CORPUSCULAR HEMOGLOBIN 30.4 pg (27.0-34.0); MEAN CORPUSCULAR HGB CONC 32.8 g/dL (33.0-35.0); MEAN CORPUSCULAR VOLUME 92.9 fL (80.0-100.0); MEAN PLATELET VOLUME 9.5 fL (7.4-11.0); MONOCYTES % (AUTO) 6.2 % (0.0-13.0); NEUTROPHILS % (AUTO) 80.7 % (42.0-75.0); PLATELET COUNT 198 X10^3/uL (150.0-450.0); RED BLOOD COUNT 4.25 X10^6/uL (4.7-6.0); WHITE BLOOD COUNT 16.2 X10^3/uL (3.6-10.0)
[2019-09-24 05:49] LABS: ALANINE AMINOTRANSFERASE 8 Units/L (12-78); ALBUMIN 2.3 g/dL (3.4-5.0); ALKALINE PHOSPHATASE 79 Units/L (46-116); ASPARTATE AMINO TRANSFERASE 14 Units/L (15-37); BLOOD UREA NITROGEN 8 mg/dL (7-18); CALCIUM 7.9 mg/dL (8.5-10.1); CARBON DIOXIDE 29.4 mmol/L (21-32); CHLORIDE 103 mmol/L (98-107); COR CA(FOR HYPOALB) 9.3 mg/dL (8.5-10.1); COR NA(FOR HYPERGLY) 140 mmol/L (136-145); CREATININE 1.07 mg/dL (0.70-1.30); SODIUM 139 mmol/L (136-145); TOTAL PROTEIN 5.6 g/dL (6.4-8.2); eGFR NON BLACK RACES > 60 (>60)
[2019-09-24] MEDS: FLAGYL IV PREMIX 500 MG BAG 500 MG/100 ML BAG IV SCH ×3 (06:16→21:59)
[2019-09-24] MEDS: D5 1/2 NS 1000 ML 1,000 ML IV SCH ×3 (06:16→22:00)
[2019-09-24] MEDS ORDERED: NIFEDIPINE 30 MG PO SCH (09:00)
[2019-09-24] MEDS: LEVAQUIN PREMIX IV 500 MG 500 MG/100 ML BAG IV SCH (09:00)
[2019-09-24] MEDS: LOVENOX INJ 40 MG SYR SC SCH (09:01)
[2019-09-24] MEDS: PROCARDIA XL PO SCH (09:09)
[2019-09-24] MEDS: SYNTHROID 125 mcg TAB PO SCH (09:09)
--- NOTE | 2019-09-24 09:13 | DR.PROGNOT ---
Hospital Progress Notes - Progress Note for Day of: Progress Note Date: 09/24/19 - Chief Complaint Chief Complaint: doing well PO laparotomy and anterior resectiopn of rectal ca . stable VS . - Past Medical Family Social History Past Med/Fam/Surg Hx: No changes since H&P Allergies: Allergies No Known Drug Allergies Allergy (Verified 07/24/19 21:32) - Review Of Systems ROS: No change since H&P - Vital Signs Vital Signs: Temperature 99.0 F Pulse Rate [Apical] 96 Pulse Rate 92 Respiratory Rate 23 Blood Pressure [Right Arm] 104/52 Blood Pressure [Left Arm] 121/57 Blood Pressure 136/65 O2 Sat by Pulse Oximetry 99 - Physical Exam Oriented: Normal Eyes: Normal Cardiovascular: Normal : Other (has garcia in place .) GI:Auscultation: Decreased, Other (surgical site dressed, no bleeding noted.) GI: Tenderness: Diffuse Skin: Normal Musculoskeletal: Normal Psychiatric: Normal Mood Description: Calm Affect: Normal Speech Pattern: Clear, Appropriate - Laboratory and Diagnostics Result Diagrams: 09/24/19 04:33 09/24/19 04:33 Labs: Laboratory WBC 16.2 X10^3/uL (3.6-10.0) H 09/24/19 04:33 RBC 4.25 X10^6/uL (4.7-6.0) L 09/24/19 04:33 Hgb 12.9 g/dL (13.5-18.0) L 09/24/19 04:33 Hct 39.5 % (42.0-54.0) L 09/24/19 04:33 MCV 92.9 fL (80.0-100.0) 09/24/19 04:33 MCH 30.4 pg (27.0-34.0) 09/24/19 04:33 MCHC 32.8 g/dL (33.0-35.0) L 09/24/19 04:33 RDW 15.0 % (11.6-16.5) 09/24/19 04:33 Plt Count 198 X10^3/uL (150.0-450.0) 09/24/19 04:33 MPV 9.5 fL (7.4-11.0) 09/24/19 04:33 Neut % (Auto) 80.7 % (42.0-75.0) H 09/24/19 04:33 Lymph % (Auto) 13.0 % (21.0-51.0) L 09/24/19 04:33 [place] % (Auto) 6.2 % (0.0-13.0) 09/24/19 04:33 Eos % (Auto) 0.0 % (0.9-2.9) L 09/24/19 04:33 Baso % (Auto) 0.1 % (0.2-1.0) L 09/24/19 04:33 Neut # (Auto) 13.0 x10^3/uL (2.2-4.8) H 09/24/19 04:33 Lymph # (Auto) 2.1 X10^3/uL (1.3-2.9) 09/24/19 04:33 [place] # (Auto) 1.0 x10^3/uL (0.3-0.8) H 09/24/19 04:33 Eos # (Auto) 0.0 x10^3/uL (0.0-0.2) 09/24/19 04:33 Baso # (Auto) 0.0 X10^3/uL (0.0-0.1) 09/24/19 04:33 Absolute Nucleated RBC 0.0 /100WBC 09/24/19 04:33 Sodium 139 mmol/L (136-145) 09/24/19 04:33 Corrected Sodium 140 mmol/L (136-145) 09/24/19 04:33 Potassium 3.8 mmol/L (3.5-5.1) 09/24/19 04:33 Chloride 103 mmol/L (98-107) 09/24/19 04:33 Carbon Dioxide 29.4 mmol/L (21-32) 09/24/19 04:33 BUN 8 mg/dL (7-18) 09/24/19 04:33 Creatinine 1.07 mg/dL (0.70-1.30) 09/24/19 04:33 Est GFR (MDRD) Af Amer > 60 (>60) 09/24/19 04:33 Est GFR (MDRD) Non-Af > 60 (>60) 09/24/19 04:33 Glucose 150 mg/dL (65-99) H 09/24/19 04:33 Calcium 7.9 mg/dL (8.5-10.1) L 09/24/19 04:33 Corrected Calcium 9.3 mg/dL (8.5-10.1) 09/24/19 04:33 Total Bilirubin 0.70 mg/dL (0.2-1.0) 09/24/19 04:33 AST 14 Units/L (15-37) L 09/24/19 04:33 ALT 8 Units/L (12-78) L 09/24/19 04:33 Alkaline Phosphatase 79 Units/L (46-116) 09/24/19 04:33 Total Protein 5.6 g/dL (6.4-8.2) L 09/24/19 04:33 Albumin 2.3 g/dL (3.4-5.0) L 09/24/19 04:33 Globulin 3.3 g/dL (2.5-4.5) 09/24/19 04:33 Albumin/Globulin Ratio 0.7 Ratio (1.1-2.1) L 09/24/19 04:33 Specimen Type Cancelled 09/23/19 11:40 Specimen Type Catherized urine 09/23/19 11:40 Urine Color Cancelled 09/23/19 11:40 Urine Color Yellow (YELLOW) 09/23/19 11:40 Urine Appearance Cancelled 09/23/19 11:40 Urine Appearance Clear (CLEAR) 09/23/19 11:40 Urine pH 6.0 (5.0 - 8.0) 09/23/19 11:40 Ur Specific [place] 1.015 (1.000-1.030) 09/23/19 11:40 Urine Protein Negative (NEGATIVE) 09/23/19 11:40 Urine Glucose (UA) Negative (NEGATIVE) 09/23/19 11:40 Urine Ketones 1+ (NEGATIVE) 09/23/19 11:40 Urine Occult Blood Negative (NEGATIVE) 09/23/19 11:40 Urine Nitrite Negative (NEGATIVE) 09/23/19 11:40 Urine Bilirubin Negative (NEGATIVE) 09/23/19 11:40 Urine Urobilinogen Normal (NORMAL) 09/23/19 11:40 Ur Leukocyte Esterase Negative (NEGATIVE) 09/23/19 11:40 Urine RBC Cancelled 09/23/19 11:40 Urine WBC Cancelled 09/23/19 11:40 Ur Squamous Epith Cells Cancelled 09/23/19 11:40 Ur Transition Epith Cell Cancelled 09/23/19 11:40 Ur Renal Epithelial Cell Cancelled 09/23/19 11:40 Calcium Oxalate Crystal Cancelled 09/23/19 11:40 Cystine Crystals Cancelled 09/23/19 11:40 Uric Acid Crystals Cancelled 09/23/19 11:40 Triple Phos Crystals Cancelled 09/23/19 11:40 Tyrosine Crystals Cancelled 09/23/19 11:40 Other Crystals Cancelled 09/23/19 11:40 Amorphous Sediment Cancelled 09/23/19 11:40 Urine Bacteria Cancelled 09/23/19 11:40 Hyaline Casts Cancelled 09/23/19 11:40 Granular Casts Cancelled 09/23/19 11:40 Fine Granular Casts Cancelled 09/23/19 11:40 Coarse Granular Casts Cancelled 09/23/19 11:40 RBC Casts Cancelled 09/23/19 11:40 Other Casts Cancelled 09/23/19 11:40 Urine Mucus Cancelled 09/23/19 11:40 Urine Trichomonas Cancelled 09/23/19 11:40 Urine Yeast Cancelled 09/23/19 11:40 Urine Sperm Cancelled 09/23/19 11:40 Ur Culture Indicated? Cancelled 09/23/19 11:40 Tissue Pathology To follow 09/23/19 14:25 - Assessment and Plan 1: obstructing rectal ca . s/p anterior resection with anastomosis . colostomy in place . to d/c NGT . OOB and same PO care . d/c IV ATB today . - Problem Patient Problems: Patient Problems S/P colon resection (Acute) Z90.49
--- NOTE | 2019-09-24 10:08 | PCM.PROG ---
Progress Note Progress Note for Day of Date of Exam: 09/24/19 Subjective Subjective: Pt is an 84 yo m s/p colon resection, POD#1. This morning he has NGT still placed w/ 250ml output in canister from yesterday. He is on 3L nc that was placed overnight when he had a brief O2 desaturation, will titrate down, he has IS that he is using. He is c/o abdominal pain at surgical site which is expected. He otherwise has no other concerns. Discussed with Dr Duran, plan today to d/c NGT and antibiotics, have out of bed with abdominal binder, and monitor urine output. Past Medical Family Social History Past Med/Fam/Surg Hx: No changes since H&P Allergies: Allergies No Known Drug Allergies Allergy (Verified 07/24/19 21:32) Review of Systems ROS: No change since H&P Vital Signs and I&O's Vital Signs: Temperature 99.0 F Pulse Rate [Apical] 96 Pulse Rate 92 Respiratory Rate 23 Blood Pressure [Right Arm] 104/52 Blood Pressure [Left Arm] 121/57 Blood Pressure 136/65 O2 Sat by Pulse Oximetry 99 Intake and Output: Intake & Output 09/21/19 09/22/19 09/23/19 09/24/19 23:59 23:59 23:59 23:59 Intake Total 4900 / 4900 900 / 900 Output Total 1830 / 1830 490 / 490 Balance 3070 / 3070 410 / 410 Physical Exam Oriented: Normal Eyes: Normal Nose: Other (NGT noted ) Cardiovascular: Normal : Other (has garcia in place .) Auscultation: Bowel Sounds: Decreased and Other (surgical site dressed, no bleeding noted. ) Tenderness: Diffuse Skin: Normal Musculoskeletal: Normal Psychiatric: Normal Mood Description: Calm Affect: Normal Speech Pattern: Clear and Appropriate Laboratory and Diagnostics Result Diagrams: 09/24/19 04:33 09/24/19 04:33 Labs: Laboratory WBC 16.2 X10^3/uL (3.6-10.0) H 09/24/19 04:33 RBC 4.25 X10^6/uL (4.7-6.0) L 09/24/19 04:33 Hgb 12.9 g/dL (13.5-18.0) L 09/24/19 04:33 Hct 39.5 % (42.0-54.0) L 09/24/19 04:33 MCV 92.9 fL (80.0-100.0) 09/24/19 04:33 MCH 30.4 pg (27.0-34.0) 09/24/19 04:33 MCHC 32.8 g/dL (33.0-35.0) L 09/24/19 04:33 RDW 15.0 % (11.6-16.5) 09/24/19 04:33 Plt Count 198 X10^3/uL (150.0-450.0) 09/24/19 04:33 MPV 9.5 fL (7.4-11.0) 09/24/19 04:33 Neut % (Auto) 80.7 % (42.0-75.0) H 09/24/19 04:33 Lymph % (Auto) 13.0 % (21.0-51.0) L 09/24/19 04:33 [place] % (Auto) 6.2 % (0.0-13.0) 09/24/19 04:33 Eos % (Auto) 0.0 % (0.9-2.9) L 09/24/19 04:33 Baso % (Auto) 0.1 % (0.2-1.0) L 09/24/19 04:33 Neut # (Auto) 13.0 x10^3/uL (2.2-4.8) H 09/24/19 04:33 Lymph # (Auto) 2.1 X10^3/uL (1.3-2.9) 09/24/19 04:33 [place] # (Auto) 1.0 x10^3/uL (0.3-0.8) H 09/24/19 04:33 Eos # (Auto) 0.0 x10^3/uL (0.0-0.2) 09/24/19 04:33 Baso # (Auto) 0.0 X10^3/uL (0.0-0.1) 09/24/19 04:33 Absolute Nucleated RBC 0.0 /100WBC 09/24/19 04:33 Sodium 139 mmol/L (136-145) 09/24/19 04:33 Corrected Sodium 140 mmol/L (136-145) 09/24/19 04:33 Potassium 3.8 mmol/L (3.5-5.1) 09/24/19 04:33 Chloride 103 mmol/L (98-107) 09/24/19 04:33 Carbon Dioxide 29.4 mmol/L (21-32) 09/24/19 04:33 BUN 8 mg/dL (7-18) 09/24/19 04:33 Creatinine 1.07 mg/dL (0.70-1.30) 09/24/19 04:33 Est GFR (MDRD) Af Amer > 60 (>60) 09/24/19 04:33 Est GFR (MDRD) Non-Af > 60 (>60) 09/24/19 04:33 Glucose 150 mg/dL (65-99) H 09/24/19 04:33 Calcium 7.9 mg/dL (8.5-10.1) L 09/24/19 04:33 Corrected Calcium 9.3 mg/dL (8.5-10.1) 09/24/19 04:33 Total Bilirubin 0.70 mg/dL (0.2-1.0) 09/24/19 04:33 AST 14 Units/L (15-37) L 09/24/19 04:33 ALT 8 Units/L (12-78) L 09/24/19 04:33 Alkaline Phosphatase 79 Units/L (46-116) 09/24/19 04:33 Total Protein 5.6 g/dL (6.4-8.2) L 09/24/19 04:33 Albumin 2.3 g/dL (3.4-5.0) L 09/24/19 04:33 Globulin 3.3 g/dL (2.5-4.5) 09/24/19 04:33 Albumin/Globulin Ratio 0.7 Ratio (1.1-2.1) L 09/24/19 04:33 Specimen Type Cancelled 09/23/19 11:40 Specimen Type Catherized urine 09/23/19 11:40 Urine Color Cancelled 09/23/19 11:40 Urine Color Yellow (YELLOW) 09/23/19 11:40 Urine Appearance Cancelled 09/23/19 11:40 Urine Appearance Clear (CLEAR) 09/23/19 11:40 Urine pH 6.0 (5.0 - 8.0) 09/23/19 11:40 Ur Specific [place] 1.015 (1.000-1.030) 09/23/19 11:40 Urine Protein Negative (NEGATIVE) 09/23/19 11:40 Urine Glucose (UA) Negative (NEGATIVE) 09/23/19 11:40 Urine Ketones 1+ (NEGATIVE) 09/23/19 11:40 Urine Occult Blood Negative (NEGATIVE) 09/23/19 11:40 Urine Nitrite Negative (NEGATIVE) 09/23/19 11:40 Urine Bilirubin Negative (NEGATIVE) 09/23/19 11:40 Urine Urobilinogen Normal (NORMAL) 09/23/19 11:40 Ur Leukocyte Esterase Negative (NEGATIVE) 09/23/19 11:40 Urine RBC Cancelled 09/23/19 11:40 Urine WBC Cancelled 09/23/19 11:40 Ur Squamous Epith Cells Cancelled 09/23/19 11:40 Ur Transition Epith Cell Cancelled 09/23/19 11:40 Ur Renal Epithelial Cell Cancelled 09/23/19 11:40 Calcium Oxalate Crystal Cancelled 09/23/19 11:40 Cystine Crystals Cancelled 09/23/19 11:40 Uric Acid Crystals Cancelled 09/23/19 11:40 Triple Phos Crystals Cancelled 09/23/19 11:40 Tyrosine Crystals Cancelled 09/23/19 11:40 Other Crystals Cancelled 09/23/19 11:40 Amorphous Sediment Cancelled 09/23/19 11:40 Urine Bacteria Cancelled 09/23/19 11:40 Hyaline Casts Cancelled 09/23/19 11:40 Granular Casts Cancelled 09/23/19 11:40 Fine Granular Casts Cancelled 09/23/19 11:40 Coarse Granular Casts Cancelled 09/23/19 11:40 RBC Casts Cancelled 09/23/19 11:40 Other Casts Cancelled 09/23/19 11:40 Urine Mucus Cancelled 09/23/19 11:40 Urine Trichomonas Cancelled 09/23/19 11:40 Urine Yeast Cancelled 09/23/19 11:40 Urine Sperm Cancelled 09/23/19 11:40 Ur Culture Indicated? Cancelled 09/23/19 11:40 Tissue Pathology To follow 09/23/19 14:25 Plan (1) S/P colon resection: Status: Acute Plan: Continue care as per Surgery, POD#1, pain control and IV fluids Monitor UOP (2) Colonic mass: Status: Acute (3) Hypertension: Status: Chronic Qualifiers: Hypertension type: essential hypertension Qualified Code(s): I10 - Essential (primary) hypertension Plan: resume nifedipine, hold Lasix (4) Hypothyroidism: Status: Chronic Qualifiers: Hypothyroidism type: unspecified Qualified Code(s): E03.9 - Hypothyroidism, unspecified Plan: resume levothyroxine
[2019-09-24] MEDS ORDERED: LASIX IVP ONE (11:29)
[2019-09-25] MEDS: D5 1/2 NS 1000 ML 1,000 ML IV SCH ×4 (02:09→23:14)
[2019-09-25] MEDS: DILAUDID INJ IVP PRN ×3 (02:10→18:20)
[2019-09-25 06:18] LABS: BASOPHILS % (AUTO) 0.2 % (0.2-1.0); EOSINOPHILS % (AUTO) 0.4 % (0.9-2.9); HEMATOCRIT 33.2 % (42.0-54.0); HEMOGLOBIN 11.1 g/dL (13.5-18.0); LYMPHOCYTES # (AUTO) 2.2 X10^3/uL (1.3-2.9); LYMPHOCYTES % (AUTO) 18.3 % (21.0-51.0); MEAN CORPUSCULAR HEMOGLOBIN 31.2 pg (27.0-34.0); MEAN CORPUSCULAR HGB CONC 33.5 g/dL (33.0-35.0); MEAN PLATELET VOLUME 9.4 fL (7.4-11.0); MONOCYTES % (AUTO) 8.8 % (0.0-13.0); NEUTROPHILS # (AUTO) 8.6 x10^3/uL (2.2-4.8); NEUTROPHILS % (AUTO) 72.3 % (42.0-75.0); PLATELET COUNT 169 X10^3/uL (150.0-450.0); RED BLOOD COUNT 3.57 X10^6/uL (4.7-6.0); RED CELL DISTRIBUTION WIDTH 14.8 % (11.6-16.5); WHITE BLOOD COUNT 11.9 X10^3/uL (3.6-10.0)
[2019-09-25 06:36] LABS: ALANINE AMINOTRANSFERASE 9 Units/L (12-78); ALKALINE PHOSPHATASE 68 Units/L (46-116); ASPARTATE AMINO TRANSFERASE 14 Units/L (15-37); BLOOD UREA NITROGEN 10 mg/dL (7-18); CALCIUM 7.7 mg/dL (8.5-10.1); CARBON DIOXIDE 30.5 mmol/L (21-32); CHLORIDE 103 mmol/L (98-107); COR CA(FOR HYPOALB) 9.3 mg/dL (8.5-10.1); COR NA(FOR HYPERGLY) 138 mmol/L (136-145); SODIUM 138 mmol/L (136-145); TOTAL PROTEIN 5.1 g/dL (6.4-8.2); eGFR NON BLACK RACES > 60 (>60)
[2019-09-25] MEDS: FLAGYL IV PREMIX 500 MG BAG 500 MG/100 ML BAG IV SCH (06:49)
[2019-09-25] MEDS ORDERED: LASIX IVP ONE (09:14)
--- NOTE | 2019-09-25 09:38 | PCM.PROG ---
Progress Note Progress Note for Day of Date of Exam: 09/25/19 Subjective Subjective: Pt is an 84 yo m s/p colon resection, POD#2. He had his NG tube removed yesterday, per surgery does not require antibiotics, discontinued Flagyl and Levaquin. This morning he is on room air, no longer with requiring supplemental oxygen. He has IS that he is using and is working with physical therapy. He is c/o abdominal pain at surgical site which is expected. He does still have a Garcia in place, surgery gave Lasix x 1 dose to help increase urinary output. Patient has not had a bowel movement as of this morning. No other concerns, continue to monitor patient. Past Medical Family Social History Past Med/Fam/Surg Hx: No changes since H&P Allergies: Allergies No Known Drug Allergies Allergy (Verified 07/24/19 21:32) Review of Systems ROS: No change since H&P Vital Signs and I&O's Vital Signs: Temperature 98.8 F Pulse Rate [Apical] 76 Pulse Rate 92 Respiratory Rate 18 Blood Pressure [Right Arm] 118/54 Blood Pressure [Left Arm] 121/57 Blood Pressure 136/65 O2 Sat by Pulse Oximetry 100 Intake and Output: Intake & Output 09/22/19 09/23/19 09/24/19 09/25/19 23:59 23:59 23:59 23:59 Intake Total 4900 / 4900 2284 / 2284 1000 / 1000 Output Total 1830 / 1830 1271 / 1306 245 / 245 Balance 3070 / 3070 1013 / 978 755 / 755 Physical Exam Oriented: Normal Eyes: Normal Nose: Normal Respiratory: Normal Cardiovascular: Normal : Other (has garcia in place .) Auscultation: Bowel Sounds: Decreased and Other (surgical site dressed, no bleeding noted. ) Tenderness: Diffuse Skin: Normal Musculoskeletal: Normal Psychiatric: Normal Mood Description: Calm Affect: Normal Speech Pattern: Clear and Appropriate Laboratory and Diagnostics Result Diagrams: 09/25/19 05:17 09/25/19 05:17 Labs: Laboratory WBC 11.9 X10^3/uL (3.6-10.0) H 09/25/19 05:17 RBC 3.57 X10^6/uL (4.7-6.0) L 09/25/19 05:17 Hgb 11.1 g/dL (13.5-18.0) L 09/25/19 05:17 Hct 33.2 % (42.0-54.0) L 09/25/19 05:17 MCV 93.0 fL (80.0-100.0) 09/25/19 05:17 MCH 31.2 pg (27.0-34.0) 09/25/19 05:17 MCHC 33.5 g/dL (33.0-35.0) 09/25/19 05:17 RDW 14.8 % (11.6-16.5) 09/25/19 05:17 Plt Count 169 X10^3/uL (150.0-450.0) 09/25/19 05:17 MPV 9.4 fL (7.4-11.0) 09/25/19 05:17 Neut % (Auto) 72.3 % (42.0-75.0) 09/25/19 05:17 Lymph % (Auto) 18.3 % (21.0-51.0) L 09/25/19 05:17 [place] % (Auto) 8.8 % (0.0-13.0) 09/25/19 05:17 Eos % (Auto) 0.4 % (0.9-2.9) L 09/25/19 05:17 Baso % (Auto) 0.2 % (0.2-1.0) 09/25/19 05:17 Neut # (Auto) 8.6 x10^3/uL (2.2-4.8) H 09/25/19 05:17 Lymph # (Auto) 2.2 X10^3/uL (1.3-2.9) 09/25/19 05:17 [place] # (Auto) 1.0 x10^3/uL (0.3-0.8) H 09/25/19 05:17 Eos # (Auto) 0.0 x10^3/uL (0.0-0.2) 09/25/19 05:17 Baso # (Auto) 0.0 X10^3/uL (0.0-0.1) 09/25/19 05:17 Absolute Nucleated RBC 0.0 /100WBC 09/25/19 05:17 Sodium 138 mmol/L (136-145) 09/25/19 05:17 Corrected Sodium 138 mmol/L (136-145) 09/25/19 05:17 Potassium 3.5 mmol/L (3.5-5.1) 09/25/19 05:17 Chloride 103 mmol/L (98-107) 09/25/19 05:17 Carbon Dioxide 30.5 mmol/L (21-32) 09/25/19 05:17 BUN 10 mg/dL (7-18) 09/25/19 05:17 Creatinine 1.20 mg/dL (0.70-1.30) 09/25/19 05:17 Est GFR (MDRD) Af Amer > 60 (>60) 09/25/19 05:17 Est GFR (MDRD) Non-Af > 60 (>60) 09/25/19 05:17 Glucose 114 mg/dL (65-99) H 09/25/19 05:17 Calcium 7.7 mg/dL (8.5-10.1) L 09/25/19 05:17 Corrected Calcium 9.3 mg/dL (8.5-10.1) 09/25/19 05:17 Total Bilirubin 0.70 mg/dL (0.2-1.0) 09/25/19 05:17 AST 14 Units/L (15-37) L 09/25/19 05:17 ALT 9 Units/L (12-78) L 09/25/19 05:17 Alkaline Phosphatase 68 Units/L (46-116) 09/25/19 05:17 Total Protein 5.1 g/dL (6.4-8.2) L 09/25/19 05:17 Albumin 2.0 g/dL (3.4-5.0) L 09/25/19 05:17 Globulin 3.1 g/dL (2.5-4.5) 09/25/19 05:17 Albumin/Globulin Ratio 0.6 Ratio (1.1-2.1) L 09/25/19 05:17 Specimen Type Cancelled 09/23/19 11:40 Specimen Type Catherized urine 09/23/19 11:40 Urine Color Cancelled 09/23/19 11:40 Urine Color Yellow (YELLOW) 09/23/19 11:40 Urine Appearance Cancelled 09/23/19 11:40 Urine Appearance Clear (CLEAR) 09/23/19 11:40 Urine pH 6.0 (5.0 - 8.0) 09/23/19 11:40 Ur Specific [place] 1.015 (1.000-1.030) 09/23/19 11:40 Urine Protein Negative (NEGATIVE) 09/23/19 11:40 Urine Glucose (UA) Negative (NEGATIVE) 09/23/19 11:40 Urine Ketones 1+ (NEGATIVE) 09/23/19 11:40 Urine Occult Blood Negative (NEGATIVE) 09/23/19 11:40 Urine Nitrite Negative (NEGATIVE) 09/23/19 11:40 Urine Bilirubin Negative (NEGATIVE) 09/23/19 11:40 Urine Urobilinogen Normal (NORMAL) 09/23/19 11:40 Ur Leukocyte Esterase Negative (NEGATIVE) 09/23/19 11:40 Urine RBC Cancelled 09/23/19 11:40 Urine WBC Cancelled 09/23/19 11:40 Ur Squamous Epith Cells Cancelled 09/23/19 11:40 Ur Transition Epith Cell Cancelled 09/23/19 11:40 Ur Renal Epithelial Cell Cancelled 09/23/19 11:40 Calcium Oxalate Crystal Cancelled 09/23/19 11:40 Cystine Crystals Cancelled 09/23/19 11:40 Uric Acid Crystals Cancelled 09/23/19 11:40 Triple Phos Crystals Cancelled 09/23/19 11:40 Tyrosine Crystals Cancelled 09/23/19 11:40 Other Crystals Cancelled 09/23/19 11:40 Amorphous Sediment Cancelled 09/23/19 11:40 Urine Bacteria Cancelled 09/23/19 11:40 Hyaline Casts Cancelled 09/23/19 11:40 Granular Casts Cancelled 09/23/19 11:40 Fine Granular Casts Cancelled 09/23/19 11:40 Coarse Granular Casts Cancelled 09/23/19 11:40 RBC Casts Cancelled 09/23/19 11:40 Other Casts Cancelled 09/23/19 11:40 Urine Mucus Cancelled 09/23/19 11:40 Urine Trichomonas Cancelled 09/23/19 11:40 Urine Yeast Cancelled 09/23/19 11:40 Urine Sperm Cancelled 09/23/19 11:40 Ur Culture Indicated? Cancelled 09/23/19 11:40 Tissue Pathology To follow 09/23/19 14:25 Plan (1) S/P colon resection: Status: Acute Plan: Continue care as per Surgery, POD#2, pain control and IV fluids Monitor UOP, discontinued antibiotics today. (2) Colonic mass: Status: Acute (3) Hypertension: Status: Chronic Qualifiers: Hypertension type: essential hypertension Qualified Code(s): I10 - Essential (primary) hypertension Plan: nifedipine (4) Hypothyroidism: Status: Chronic Qualifiers: Hypothyroidism type: unspecified Qualified Code(s): E03.9 - Hypo thyroidism, unspecified Plan: resume levothyroxine
[2019-09-25] MEDS: SYNTHROID 125 mcg TAB PO SCH ×2 (09:39→15:30)
[2019-09-25] MEDS: LEVAQUIN PREMIX IV 500 MG 500 MG/100 ML BAG IV SCH (09:39)
[2019-09-25] MEDS: PROCARDIA XL PO SCH ×2 (09:39→15:30)
[2019-09-25] MEDS: LOVENOX INJ 40 MG SYR SC SCH (09:42)
--- NOTE | 2019-09-25 10:03 | DR.PROGNOT ---
Hospital Progress Notes - Progress Note for Day of: Progress Note Date: 09/25/19 - Chief Complaint Chief Complaint: PO day 2. moderate abdominal pain . no nausea or vomiting . colostomy is not fonctioning yet . urine out put is fair , improved with one dose of Lasix . WBC 11.9. BUN/Creat 10/1.2. temp 98.2 - Past Medical Family Social History Past Med/Fam/Surg Hx: No changes since H&P Allergies: Allergies No Known Drug Allergies Allergy (Verified 07/24/19 21:32) - Review Of Systems ROS: No change since H&P - Vital Signs Vital Signs: Temperature 98.8 F Pulse Rate [Apical] 76 Pulse Rate 92 Respiratory Rate 18 Blood Pressure [Right Arm] 118/54 Blood Pressure [Left Arm] 121/57 Blood Pressure 136/65 O2 Sat by Pulse Oximetry 100 - Physical Exam Oriented: Normal Eyes: Normal Nose: Other (NGT noted) Cardiovascular: Normal : Other (has garcia in place .) GI:Auscultation: Decreased, Other (surgical site dressed, no bleeding noted.) GI: Tenderness: Diffuse (moderate with + BS) Skin: Normal Musculoskeletal: Normal Psychiatric: Normal Mood Description: Calm Affect: Normal Speech Pattern: Clear, Appropriate - Laboratory and Diagnostics Result Diagrams: 09/25/19 05:17 09/25/19 05:17 Labs: Laboratory WBC 11.9 X10^3/uL (3.6-10.0) H 09/25/19 05:17 RBC 3.57 X10^6/uL (4.7-6.0) L 09/25/19 05:17 Hgb 11.1 g/dL (13.5-18.0) L 09/25/19 05:17 Hct 33.2 % (42.0-54.0) L 09/25/19 05:17 MCV 93.0 fL (80.0-100.0) 09/25/19 05:17 MCH 31.2 pg (27.0-34.0) 09/25/19 05:17 MCHC 33.5 g/dL (33.0-35.0) 09/25/19 05:17 RDW 14.8 % (11.6-16.5) 09/25/19 05:17 Plt Count 169 X10^3/uL (150.0-450.0) 09/25/19 05:17 MPV 9.4 fL (7.4-11.0) 09/25/19 05:17 Neut % (Auto) 72.3 % (42.0-75.0) 09/25/19 05:17 Lymph % (Auto) 18.3 % (21.0-51.0) L 09/25/19 05:17 [place] % (Auto) 8.8 % (0.0-13.0) 09/25/19 05:17 Eos % (Auto) 0.4 % (0.9-2.9) L 09/25/19 05:17 Baso % (Auto) 0.2 % (0.2-1.0) 09/25/19 05:17 Neut # (Auto) 8.6 x10^3/uL (2.2-4.8) H 09/25/19 05:17 Lymph # (Auto) 2.2 X10^3/uL (1.3-2.9) 09/25/19 05:17 [place] # (Auto) 1.0 x10^3/uL (0.3-0.8) H 09/25/19 05:17 Eos # (Auto) 0.0 x10^3/uL (0.0-0.2) 09/25/19 05:17 Baso # (Auto) 0.0 X10^3/uL (0.0-0.1) 09/25/19 05:17 Absolute Nucleated RBC 0.0 /100WBC 09/25/19 05:17 Sodium 138 mmol/L (136-145) 09/25/19 05:17 Corrected Sodium 138 mmol/L (136-145) 09/25/19 05:17 Potassium 3.5 mmol/L (3.5-5.1) 09/25/19 05:17 Chloride 103 mmol/L (98-107) 09/25/19 05:17 Carbon Dioxide 30.5 mmol/L (21-32) 09/25/19 05:17 BUN 10 mg/dL (7-18) 09/25/19 05:17 Creatinine 1.20 mg/dL (0.70-1.30) 09/25/19 05:17 Est GFR (MDRD) Af Amer > 60 (>60) 09/25/19 05:17 Est GFR (MDRD) Non-Af > 60 (>60) 09/25/19 05:17 Glucose 114 mg/dL (65-99) H 09/25/19 05:17 Calcium 7.7 mg/dL (8.5-10.1) L 09/25/19 05:17 Corrected Calcium 9.3 mg/dL (8.5-10.1) 09/25/19 05:17 Total Bilirubin 0.70 mg/dL (0.2-1.0) 09/25/19 05:17 AST 14 Units/L (15-37) L 09/25/19 05:17 ALT 9 Units/L (12-78) L 09/25/19 05:17 Alkaline Phosphatase 68 Units/L (46-116) 09/25/19 05:17 Total Protein 5.1 g/dL (6.4-8.2) L 09/25/19 05:17 Albumin 2.0 g/dL (3.4-5.0) L 09/25/19 05:17 Globulin 3.1 g/dL (2.5-4.5) 09/25/19 05:17 Albumin/Globulin Ratio 0.6 Ratio (1.1-2.1) L 09/25/19 05:17 Specimen Type Cancelled 09/23/19 11:40 Specimen Type Catherized urine 09/23/19 11:40 Urine Color Cancelled 09/23/19 11:40 Urine Color Yellow (YELLOW) 09/23/19 11:40 Urine Appearance Cancelled 09/23/19 11:40 Urine Appearance Clear (CLEAR) 09/23/19 11:40 Urine pH 6.0 (5.0 - 8.0) 09/23/19 11:40 Ur Specific [place] 1.015 (1.000-1.030) 09/23/19 11:40 Urine Protein Negative (NEGATIVE) 09/23/19 11:40 Urine Glucose (UA) Negative (NEGATIVE) 09/23/19 11:40 Urine Ketones 1+ (NEGATIVE) 09/23/19 11:40 Urine Occult Blood Negative (NEGATIVE) 09/23/19 11:40 Urine Nitrite Negative (NEGATIVE) 09/23/19 11:40 Urine Bilirubin Negative (NEGATIVE) 09/23/19 11:40 Urine Urobilinogen Normal (NORMAL) 09/23/19 11:40 Ur Leukocyte Esterase Negative (NEGATIVE) 09/23/19 11:40 Urine RBC Cancelled 09/23/19 11:40 Urine WBC Cancelled 09/23/19 11:40 Ur Squamous Epith Cells Cancelled 09/23/19 11:40 Ur Transition Epith Cell Cancelled 09/23/19 11:40 Ur Renal Epithelial Cell Cancelled 09/23/19 11:40 Calcium Oxalate Crystal Cancelled 09/23/19 11:40 Cystine Crystals Cancelled 09/23/19 11:40 Uric Acid Crystals Cancelled 09/23/19 11:40 Triple Phos Crystals Cancelled 09/23/19 11:40 Tyrosine Crystals Cancelled 09/23/19 11:40 Other Crystals Cancelled 09/23/19 11:40 Amorphous Sediment Cancelled 09/23/19 11:40 Urine Bacteria Cancelled 09/23/19 11:40 Hyaline Casts Cancelled 09/23/19 11:40 Granular Casts Cancelled 09/23/19 11:40 Fine Granular Casts Cancelled 09/23/19 11:40 Coarse Granular Casts Cancelled 09/23/19 11:40 RBC Casts Cancelled 09/23/19 11:40 Other Casts Cancelled 09/23/19 11:40 Urine Mucus Cancelled 09/23/19 11:40 Urine Trichomonas Cancelled 09/23/19 11:40 Urine Yeast Cancelled 09/23/19 11:40 Urine Sperm Cancelled 09/23/19 11:40 Ur Culture Indicated? Cancelled 09/23/19 11:40 Tissue Pathology To follow 09/23/19 14:25 - Assessment and Plan 1: rectal ca . s/p resection with primary anastomosis . same PO care . DVT prophylaxis , OOB ,. clear liquid today . - Problem Patient Problems: Patient Problems S/P colon resection (Acute) Z90.49
[2019-09-25] MEDS ORDERED: CHLORASEPTIC SPRAY MT PRN (11:02)
[2019-09-26] MEDS: DILAUDID INJ IVP PRN ×2 (00:19→05:46)
[2019-09-26] MEDS: D5 1/2 NS 1000 ML 1,000 ML IV SCH ×3 (05:17→20:01)
[2019-09-26 05:33] LABS: BASOPHILS # (AUTO) 0.1 X10^3/uL (0.0-0.1); BASOPHILS % (AUTO) 0.6 % (0.2-1.0); EOSINOPHILS # (AUTO) 0.1 x10^3/uL (0.0-0.2); EOSINOPHILS % (AUTO) 0.7 % (0.9-2.9); HEMATOCRIT 32.7 % (42.0-54.0); HEMOGLOBIN 10.9 g/dL (13.5-18.0); LYMPHOCYTES # (AUTO) 1.9 X10^3/uL (1.3-2.9); LYMPHOCYTES % (AUTO) 17.8 % (21.0-51.0); MEAN CORPUSCULAR HEMOGLOBIN 30.9 pg (27.0-34.0); MEAN CORPUSCULAR HGB CONC 33.4 g/dL (33.0-35.0); MEAN CORPUSCULAR VOLUME 92.4 fL (80.0-100.0); MEAN PLATELET VOLUME 9.1 fL (7.4-11.0); MONOCYTES # (AUTO) 0.9 x10^3/uL (0.3-0.8); MONOCYTES % (AUTO) 8.1 % (0.0-13.0); NEUTROPHILS # (AUTO) 7.7 x10^3/uL (2.2-4.8); NEUTROPHILS % (AUTO) 72.8 % (42.0-75.0); PLATELET COUNT 158 X10^3/uL (150.0-450.0); RED BLOOD COUNT 3.54 X10^6/uL (4.7-6.0); RED CELL DISTRIBUTION WIDTH 14.2 % (11.6-16.5); WHITE BLOOD COUNT 10.6 X10^3/uL (3.6-10.0)
[2019-09-26 05:47] LABS: ALANINE AMINOTRANSFERASE 10 Units/L (12-78); ALBUMIN 1.9 g/dL (3.4-5.0); ALKALINE PHOSPHATASE 72 Units/L (46-116); ASPARTATE AMINO TRANSFERASE 13 Units/L (15-37); BLOOD UREA NITROGEN 8 mg/dL (7-18); CALCIUM 7.5 mg/dL (8.5-10.1); CARBON DIOXIDE 29.2 mmol/L (21-32); CHLORIDE 102 mmol/L (98-107); COR CA(FOR HYPOALB) 9.2 mg/dL (8.5-10.1); COR NA(FOR HYPERGLY) 137 mmol/L (136-145); SODIUM 136 mmol/L (136-145); TOTAL PROTEIN 5.1 g/dL (6.4-8.2); eGFR NON BLACK RACES > 60 (>60)
[2019-09-26] MEDS ORDERED: KLOR-CON PO PRN (05:56)
[2019-09-26] MEDS ORDERED: MICRO K EXTEN CAP 10 MEQ PO PRN (05:56)
[2019-09-26] MEDS ORDERED: POTASSIUM CHL 40 MEQ/NS 0.45% 500 ML IV PRN (05:56)
[2019-09-26] MEDS ORDERED: K-DUR TAB 20 MEQ PO PRN (05:56)
[2019-09-26] MEDS ORDERED: POTASSIUM CHL 60 MEQ/NS 0.45% 500 ML IV PRN (05:56)
[2019-09-26] MEDS ORDERED: POTASSIUM CHLORIDE LIQ 20 MEQ UDC ONE (06:20)
[2019-09-26] MEDS: POTASSIUM CHLORIDE LIQ 20 MEQ UDC PO PRN ×2 (06:24→16:31)
[2019-09-26] MEDS: MAGNESIUM SULFATE 1 GRAM/100 mL PREMIX 1 GM/100 ML BAG IV PRN ×4 (06:56→11:21)
[2019-09-26] MEDS: LOVENOX INJ 40 MG SYR SC SCH (08:24)
[2019-09-26] MEDS: SYNTHROID 125 mcg TAB PO SCH (08:24)
[2019-09-26] MEDS: PROCARDIA XL PO SCH (08:24)
--- NOTE | 2019-09-26 10:37 | PCM.PROG ---
Progress Note Progress Note for Day of Date of Exam: 09/26/19 Subjective Subjective: Pt is an 84 yo m s/p colon resection, POD#3. He has been tolerating CLD. He has IS that he is using and is working with physical therapy. He has abdominal pain at surgical site which is expected, and pain is adequately managed. He has a Garcia in place and had UOP of 2690ml past 24h. There is no stool in colostomy bag. His potassium and magnesium was low this morning, will replete. No other concerns, continue to advance diet and monitor patient. Past Medical Family Social History Past Med/Fam/Surg Hx: No changes since H&P Allergies: Allergies No Known Drug Allergies Allergy (Verified 07/24/19 21:32) Review of Systems ROS: No change since H&P Vital Signs and I&O's Vital Signs: Temperature 99.3 F Pulse Rate [Apical] 81 Pulse Rate 92 Respiratory Rate 15 Blood Pressure [Right Arm] 112/54 Blood Pressure [Left Arm] 121/57 Blood Pressure 136/65 O2 Sat by Pulse Oximetry 98 Intake and Output: Intake & Output 09/23/19 09/24/19 09/25/19 09/26/19 23:59 23:59 23:59 23:59 Intake Total 4900 / 4900 2284 / 2284 3767 / 3767 1100 / 1100 Output Total 1830 / 1830 1271 / 1306 2490 / 2590 445 / 445 Balance 3070 / 3070 1013 / 978 1277 / 1177 655 / 655 Physical Exam Oriented: Normal Eyes: Normal Nose: Normal Respiratory: Normal Cardiovascular: Normal : Other (has garcia in place .) Auscultation: Bowel Sounds: Decreased and Other (surgical site dressed, no bleeding noted. ) Tenderness: Normal Skin: Normal Musculoskeletal: Normal Psychiatric: Normal Mood Description: Calm Affect: Normal Speech Pattern: Clear and Appropriate Laboratory and Diagnostics Result Diagrams: 09/26/19 05:04 09/26/19 05:04 Labs: Laboratory WBC 10.6 X10^3/uL (3.6-10.0) H 09/26/19 05:04 RBC 3.54 X10^6/uL (4.7-6.0) L 09/26/19 05:04 Hgb 10.9 g/dL (13.5-18.0) L 09/26/19 05:04 Hct 32.7 % (42.0-54.0) L 09/26/19 05:04 MCV 92.4 fL (80.0-100.0) 09/26/19 05:04 MCH 30.9 pg (27.0-34.0) 09/26/19 05:04 MCHC 33.4 g/dL (33.0-35.0) 09/26/19 05:04 RDW 14.2 % (11.6-16.5) 09/26/19 05:04 Plt Count 158 X10^3/uL (150.0-450.0) 09/26/19 05:04 MPV 9.1 fL (7.4-11.0) 09/26/19 05:04 Neut % (Auto) 72.8 % (42.0-75.0) 09/26/19 05:04 Lymph % (Auto) 17.8 % (21.0-51.0) L 09/26/19 05:04 [place] % (Auto) 8.1 % (0.0-13.0) 09/26/19 05:04 Eos % (Auto) 0.7 % (0.9-2.9) L 09/26/19 05:04 Baso % (Auto) 0.6 % (0.2-1.0) 09/26/19 05:04 Neut # (Auto) 7.7 x10^3/uL (2.2-4.8) H 09/26/19 05:04 Lymph # (Auto) 1.9 X10^3/uL (1.3-2.9) 09/26/19 05:04 [place] # (Auto) 0.9 x10^3/uL (0.3-0.8) H 09/26/19 05:04 Eos # (Auto) 0.1 x10^3/uL (0.0-0.2) 09/26/19 05:04 Baso # (Auto) 0.1 X10^3/uL (0.0-0.1) 09/26/19 05:04 Absolute Nucleated RBC 0.0 /100WBC 09/26/19 05:04 Sodium 136 mmol/L (136-145) 09/26/19 05:04 Corrected Sodium 137 mmol/L (136-145) 09/26/19 05:04 Potassium 3.0 mmol/L (3.5-5.1) L* 09/26/19 05:04 Chloride 102 mmol/L (98-107) 09/26/19 05:04 Carbon Dioxide 29.2 mmol/L (21-32) 09/26/19 05:04 BUN 8 mg/dL (7-18) 09/26/19 05:04 Creatinine 1.00 mg/dL (0.70-1.30) 09/26/19 05:04 Est GFR (MDRD) Af Amer > 60 (>60) 09/26/19 05:04 Est GFR (MDRD) Non-Af > 60 (>60) 09/26/19 05:04 Glucose 140 mg/dL (65-99) H 09/26/19 05:04 Calcium 7.5 mg/dL (8.5-10.1) L 09/26/19 05:04 Corrected Calcium 9.2 mg/dL (8.5-10.1) 09/26/19 05:04 Magnesium 1.4 mg/dL (1.7-2.9) L 09/26/19 05:04 Total Bilirubin 0.50 mg/dL (0.2-1.0) 09/26/19 05:04 AST 13 Units/L (15-37) L 09/26/19 05:04 ALT 10 Units/L (12-78) L 09/26/19 05:04 Alkaline Phosphatase 72 Units/L (46-116) 09/26/19 05:04 Total Protein 5.1 g/dL (6.4-8.2) L 09/26/19 05:04 Albumin 1.9 g/dL (3.4-5.0) L 09/26/19 05:04 Globulin 3.2 g/dL (2.5-4.5) 09/26/19 05:04 Albumin/Globulin Ratio 0.6 Ratio (1.1-2.1) L 09/26/19 05:04 Specimen Type Cancelled 09/23/19 11:40 Specimen Type Catherized urine 09/23/19 11:40 Urine Color Cancelled 09/23/19 11:40 Urine Color Yellow (YELLOW) 09/23/19 11:40 Urine Appearance Cancelled 09/23/19 11:40 Urine Appearance Clear (CLEAR) 09/23/19 11:40 Urine pH 6.0 (5.0 - 8.0) 09/23/19 11:40 Ur Specific [place] 1.015 (1.000-1.030) 09/23/19 11:40 Urine Protein Negative (NEGATIVE) 09/23/19 11:40 Urine Glucose (UA) Negative (NEGATIVE) 09/23/19 11:40 Urine Ketones 1+ (NEGATIVE) 09/23/19 11:40 Urine Occult Blood Negative (NEGATIVE) 09/23/19 11:40 Urine Nitrite Negative (NEGATIVE) 09/23/19 11:40 Urine Bilirubin Negative (NEGATIVE) 09/23/19 11:40 Urine Urobilinogen Normal (NORMAL) 09/23/19 11:40 Ur Leukocyte Esterase Negative (NEGATIVE) 09/23/19 11:40 Urine RBC Cancelled 09/23/19 11:40 Urine WBC Cancelled 09/23/19 11:40 Ur Squamous Epith Cells Cancelled 09/23/19 11:40 Ur Transition Epith Cell Cancelled 09/23/19 11:40 Ur Renal Epithelial Cell Cancelled 09/23/19 11:40 Calcium Oxalate Crystal Cancelled 09/23/19 11:40 Cystine Crystals Cancelled 09/23/19 11:40 Uric Acid Crystals Cancelled 09/23/19 11:40 Triple Phos Crystals Cancelled 09/23/19 11:40 Tyrosine Crystals Cancelled 09/23/19 11:40 Other Crystals Cancelled 09/23/19 11:40 Amorphous Sediment Cancelled 09/23/19 11:40 Urine Bacteria Cancelled 09/23/19 11:40 Hyaline Casts Cancelled 09/23/19 11:40 Granular Casts Cancelled 09/23/19 11:40 Fine Granular Casts Cancelled 09/23/19 11:40 Coarse Granular Casts Cancelled 09/23/19 11:40 RBC Casts Cancelled 09/23/19 11:40 Other Casts Cancelled 09/23/19 11:40 Urine Mucus Cancelled 09/23/19 11:40 Urine Trichomonas Cancelled 09/23/19 11:40 Urine Yeast Cancelled 09/23/19 11:40 Urine Sperm Cancelled 09/23/19 11:40 Ur Culture Indicated? Cancelled 09/23/19 11:40 Tissue Pathology To follow 09/23/19 14:25 Plan (1) S/P colon resection: Status: Acute Plan: Continue care as per Surgery, POD#3, pain control and advance diet. Monitor UOP and colostomy status (2) Colonic mass: Status: Acute (3) Hypertension: Status: Chronic Qualifiers: Hypertension type: essential hypertension Qualified Code(s): I10 - Essential (primary) hypertension Plan: nifedipine (4) Hypothyroidism: Status: Chronic Qualifiers: Hypothyroidism type: unspecified Qualified Code(s): E03.9 - Hypothyroidism, unspecified Plan: resume levothyroxine
--- NOTE | 2019-09-26 10:48 | DR.PROGNOT ---
Hospital Progress Notes - Progress Note for Day of: Progress Note Date: 09/26/19 - Chief Complaint Chief Complaint: PO day 3. mild abdominal pain . no nausea or vomiting . colostomy is not fonctioning yet . urine out put is fair ,. WBC 10.9. BUN/Creat normal . temp 99.6. temp 98.2 - Past Medical Family Social History Past Med/Fam/Surg Hx: No changes since H&P Allergies: Allergies No Known Drug Allergies Allergy (Verified 07/24/19 21:32) - Review Of Systems ROS: No change since H&P - Vital Signs Vital Signs: Temperature 99.3 F Pulse Rate [Apical] 81 Pulse Rate 92 Respiratory Rate 15 Blood Pressure [Right Arm] 112/54 Blood Pressure [Left Arm] 121/57 Blood Pressure 136/65 O2 Sat by Pulse Oximetry 98 - Physical Exam Oriented: Normal Eyes: Normal Nose: Normal Respiratory: Normal Cardiovascular: Normal : Other (has garcia in place .) GI:Auscultation: Decreased, Other (surgical site dressed, no bleeding noted.) GI: Tenderness: Other (soft abdomen , mild incisional tenderness . BS +) Skin: Normal Musculoskeletal: Normal Psychiatric: Normal Mood Description: Calm Affect: Normal Speech Pattern: Clear, Appropriate - Laboratory and Diagnostics Result Diagrams: 09/26/19 05:04 09/26/19 05:04 Labs: Laboratory WBC 10.6 X10^3/uL (3.6-10.0) H 09/26/19 05:04 RBC 3.54 X10^6/uL (4.7-6.0) L 09/26/19 05:04 Hgb 10.9 g/dL (13.5-18.0) L 09/26/19 05:04 Hct 32.7 % (42.0-54.0) L 09/26/19 05:04 MCV 92.4 fL (80.0-100.0) 09/26/19 05:04 MCH 30.9 pg (27.0-34.0) 09/26/19 05:04 MCHC 33.4 g/dL (33.0-35.0) 09/26/19 05:04 RDW 14.2 % (11.6-16.5) 09/26/19 05:04 Plt Count 158 X10^3/uL (150.0-450.0) 09/26/19 05:04 MPV 9.1 fL (7.4-11.0) 09/26/19 05:04 Neut % (Auto) 72.8 % (42.0-75.0) 09/26/19 05:04 Lymph % (Auto) 17.8 % (21.0-51.0) L 09/26/19 05:04 [place] % (Auto) 8.1 % (0.0-13.0) 09/26/19 05:04 Eos % (Auto) 0.7 % (0.9-2.9) L 09/26/19 05:04 Baso % (Auto) 0.6 % (0.2-1.0) 09/26/19 05:04 Neut # (Auto) 7.7 x10^3/uL (2.2-4.8) H 09/26/19 05:04 Lymph # (Auto) 1.9 X10^3/uL (1.3-2.9) 09/26/19 05:04 [place] # (Auto) 0.9 x10^3/uL (0.3-0.8) H 09/26/19 05:04 Eos # (Auto) 0.1 x10^3/uL (0.0-0.2) 09/26/19 05:04 Baso # (Auto) 0.1 X10^3/uL (0.0-0.1) 09/26/19 05:04 Absolute Nucleated RBC 0.0 /100WBC 09/26/19 05:04 Sodium 136 mmol/L (136-145) 09/26/19 05:04 Corrected Sodium 137 mmol/L (136-145) 09/26/19 05:04 Potassium 3.0 mmol/L (3.5-5.1) L* 09/26/19 05:04 Chloride 102 mmol/L (98-107) 09/26/19 05:04 Carbon Dioxide 29.2 mmol/L (21-32) 09/26/19 05:04 BUN 8 mg/dL (7-18) 09/26/19 05:04 Creatinine 1.00 mg/dL (0.70-1.30) 09/26/19 05:04 Est GFR (MDRD) Af Amer > 60 (>60) 09/26/19 05:04 Est GFR (MDRD) Non-Af > 60 (>60) 09/26/19 05:04 Glucose 140 mg/dL (65-99) H 09/26/19 05:04 Calcium 7.5 mg/dL (8.5-10.1) L 09/26/19 05:04 Corrected Calcium 9.2 mg/dL (8.5-10.1) 09/26/19 05:04 Magnesium 1.4 mg/dL (1.7-2.9) L 09/26/19 05:04 Total Bilirubin 0.50 mg/dL (0.2-1.0) 09/26/19 05:04 AST 13 Units/L (15-37) L 09/26/19 05:04 ALT 10 Units/L (12-78) L 09/26/19 05:04 Alkaline Phosphatase 72 Units/L (46-116) 09/26/19 05:04 Total Protein 5.1 g/dL (6.4-8.2) L 09/26/19 05:04 Albumin 1.9 g/dL (3.4-5.0) L 09/26/19 05:04 Globulin 3.2 g/dL (2.5-4.5) 09/26/19 05:04 Albumin/Globulin Ratio 0.6 Ratio (1.1-2.1) L 09/26/19 05:04 Specimen Type Cancelled 09/23/19 11:40 Specimen Type Catherized urine 09/23/19 11:40 Urine Color Cancelled 09/23/19 11:40 Urine Color Yellow (YELLOW) 09/23/19 11:40 Urine Appearance Cancelled 09/23/19 11:40 Urine Appearance Clear (CLEAR) 09/23/19 11:40 Urine pH 6.0 (5.0 - 8.0) 09/23/19 11:40 Ur Specific [place] 1.015 (1.000-1.030) 09/23/19 11:40 Urine Protein Negative (NEGATIVE) 09/23/19 11:40 Urine Glucose (UA) Negative (NEGATIVE) 09/23/19 11:40 Urine Ketones 1+ (NEGATIVE) 09/23/19 11:40 Urine Occult Blood Negative (NEGATIVE) 09/23/19 11:40 Urine Nitrite Negative (NEGATIVE) 09/23/19 11:40 Urine Bilirubin Negative (NEGATIVE) 09/23/19 11:40 Urine Urobilinogen Normal (NORMAL) 09/23/19 11:40 Ur Leukocyte Esterase Negative (NEGATIVE) 09/23/19 11:40 Urine RBC Cancelled 09/23/19 11:40 Urine WBC Cancelled 09/23/19 11:40 Ur Squamous Epith Cells Cancelled 09/23/19 11:40 Ur Transition Epith Cell Cancelled 09/23/19 11:40 Ur Renal Epithelial Cell Cancelled 09/23/19 11:40 Calcium Oxalate Crystal Cancelled 09/23/19 11:40 Cystine Crystals Cancelled 09/23/19 11:40 Uric Acid Crystals Cancelled 09/23/19 11:40 Triple Phos Crystals Cancelled 09/23/19 11:40 Tyrosine Crystals Cancelled 09/23/19 11:40 Other Crystals Cancelled 09/23/19 11:40 Amorphous Sediment Cancelled 09/23/19 11:40 Urine Bacteria Cancelled 09/23/19 11:40 Hyaline Casts Cancelled 09/23/19 11:40 Granular Casts Cancelled 09/23/19 11:40 Fine Granular Casts Cancelled 09/23/19 11:40 Coarse Granular Casts Cancelled 09/23/19 11:40 RBC Casts Cancelled 09/23/19 11:40 Other Casts Cancelled 09/23/19 11:40 Urine Mucus Cancelled 09/23/19 11:40 Urine Trichomonas Cancelled 09/23/19 11:40 Urine Yeast Cancelled 09/23/19 11:40 Urine Sperm Cancelled 09/23/19 11:40 Ur Culture Indicated? Cancelled 09/23/19 11:40 Tissue Pathology To follow 09/23/19 14:25 - Assessment and Plan 1: rectal ca . s/p resection with primary anastomosis . same PO care . DVT prophylaxis , OOB ,. on soft diet . PT to ambulate , D/C catheter . Pt would benefit from short term placement or swing bed before sending him home . - Problem Patient Problems: Patient Problems S/P colon resection (Acute) Z90.49
[2019-09-26 23:28] LABS: GASTRIC OCCULT BLOOD POSITIVE (NEGATIVE); PH,GASTRIC FLUID 3
[2019-09-27] MEDS ORDERED: ZOFRAN INJ 4 MG VIAL ONE (03:05)
[2019-09-27] MEDS: ZOFRAN INJ 4 MG VIAL IVP PRN ×2 (03:08→09:10)
[2019-09-27 03:52] LABS: BILIRUBIN,URINE NEGATIVE (NEGATIVE); BLOOD/HEMOGLOBIN,URINE 2+ (NEGATIVE); GLUCOSE, URINE NEGATIVE (NEGATIVE); KETONES,URINE NEGATIVE (NEGATIVE); LEUKOCYTE ESTERASE ,URINE 1+ (NEGATIVE); NITRITES,URINE NEGATIVE (NEGATIVE); PROTEIN,URINE 2+ (NEGATIVE); UROBILINOGEN,URINE NORMAL (NORMAL)
[2019-09-27 03:55] LABS: APPEARANCE,URINE CLEAR (CLEAR); BACTERIA,URINE NEGATIVE /HPF (NEGATIVE); COLOR,URINE YELLOW (YELLOW); RBC,URINE 0-2 /HPF (0-3); SQUAMOUS EPITHELIAL CELL,UR RARE /HPF (NEGATIVE)
[2019-09-27 05:28] LABS: BASOPHILS % (AUTO) 0.3 % (0.2-1.0); EOSINOPHILS % (AUTO) 0.2 % (0.9-2.9); HEMOGLOBIN 11.5 g/dL (13.5-18.0); LYMPHOCYTES # (AUTO) 1.2 X10^3/uL (1.3-2.9); LYMPHOCYTES % (AUTO) 10.1 % (21.0-51.0); MEAN CORPUSCULAR HEMOGLOBIN 31.1 pg (27.0-34.0); MEAN CORPUSCULAR HGB CONC 33.7 g/dL (33.0-35.0); MEAN CORPUSCULAR VOLUME 92.2 fL (80.0-100.0); MEAN PLATELET VOLUME 9.7 fL (7.4-11.0); MONOCYTES # (AUTO) 0.8 x10^3/uL (0.3-0.8); MONOCYTES % (AUTO) 6.2 % (0.0-13.0); NEUTROPHILS # (AUTO) 10.2 x10^3/uL (2.2-4.8); NEUTROPHILS % (AUTO) 83.2 % (42.0-75.0); PLATELET COUNT 203 X10^3/uL (150.0-450.0); RED BLOOD COUNT 3.69 X10^6/uL (4.7-6.0); RED CELL DISTRIBUTION WIDTH 14.3 % (11.6-16.5); WHITE BLOOD COUNT 12.2 X10^3/uL (3.6-10.0)
[2019-09-27] MEDS: D5 1/2 NS 1000 ML 1,000 ML IV SCH ×3 (05:41→20:03)
[2019-09-27 05:46] LABS: ALANINE AMINOTRANSFERASE 10 Units/L (12-78); ALBUMIN 2.1 g/dL (3.4-5.0); ALKALINE PHOSPHATASE 64 Units/L (46-116); ASPARTATE AMINO TRANSFERASE 19 Units/L (15-37); BLOOD UREA NITROGEN 6 mg/dL (7-18); CALCIUM 7.9 mg/dL (8.5-10.1); CARBON DIOXIDE 27.6 mmol/L (21-32); CHLORIDE 99 mmol/L (98-107); COR CA(FOR HYPOALB) 9.4 mg/dL (8.5-10.1); COR NA(FOR HYPERGLY) 135 mmol/L (136-145); CREATININE 0.77 mg/dL (0.70-1.30); MAGNESIUM 1.9 mg/dL (1.7-2.9); SODIUM 133 mmol/L (136-145); TOTAL PROTEIN 5.5 g/dL (6.4-8.2); eGFR NON BLACK RACES > 60 (>60)
[2019-09-27] MEDS: K-RIDER 10 MEQ/NS 100 ML 10 MEQ/100 ML BAG IV PRN ×3 (06:28→10:23)
[2019-09-27] MEDS: LOVENOX INJ 40 MG SYR SC SCH (09:09)
[2019-09-27] MEDS: PROCARDIA XL PO SCH (09:10)
[2019-09-27] MEDS: SYNTHROID 125 mcg TAB PO SCH (09:10)
--- NOTE | 2019-09-27 10:02 | DR.PROGNOT ---
Hospital Progress Notes - Progress Note for Day of: Progress Note Date: 09/27/19 - Chief Complaint Chief Complaint: PO day 4. no abdominal pain . Pt vomited last night . garcia cath had to be re inserted last night. colostomy is not fonctioning yet . urine out put is fair ,. WBC 10.9. BUN/Creat normal . temp 99.6. temp 98.2 - Past Medical Family Social History Past Med/Fam/Surg Hx: No changes since H&P Allergies: Allergies No Known Drug Allergies Allergy (Verified 07/24/19 21:32) - Review Of Systems ROS: No change since H&P - Vital Signs Vital Signs: Temperature 99.4 F Pulse Rate [Apical] 106 Pulse Rate 92 Respiratory Rate 22 Blood Pressure [Right Arm] 109/57 Blood Pressure [Left Arm] 115/56 Blood Pressure 136/65 O2 Sat by Pulse Oximetry 98 - Physical Exam Oriented: Not Oriented (confused at times .) Eyes: Normal Nose: Normal Respiratory: Normal Cardiovascular: Normal : Other (has garcia in place .) GI:Auscultation: Decreased, Other (surgical site dressed, no bleeding noted.) GI:Palpation: Normal GI: Tenderness: Other (soft abdomen , mild incisional tenderness . BS +. drain was removed ) Skin: Normal Musculoskeletal: Normal Psychiatric: Normal Mood Description: Calm Affect: Normal Speech Pattern: Clear, Appropriate - Laboratory and Diagnostics Result Diagrams: 09/27/19 04:31 09/27/19 04:31 Labs: Laboratory WBC 12.2 X10^3/uL (3.6-10.0) H 09/27/19 04:31 RBC 3.69 X10^6/uL (4.7-6.0) L 09/27/19 04:31 Hgb 11.5 g/dL (13.5-18.0) L 09/27/19 04:31 Hct 34.0 % (42.0-54.0) L 09/27/19 04:31 MCV 92.2 fL (80.0-100.0) 09/27/19 04:31 MCH 31.1 pg (27.0-34.0) 09/27/19 04:31 MCHC 33.7 g/dL (33.0-35.0) 09/27/19 04:31 RDW 14.3 % (11.6-16.5) 09/27/19 04:31 Plt Count 203 X10^3/uL (150.0-450.0) 09/27/19 04:31 MPV 9.7 fL (7.4-11.0) 09/27/19 04:31 Neut % (Auto) 83.2 % (42.0-75.0) H 09/27/19 04:31 Lymph % (Auto) 10.1 % (21.0-51.0) L 09/27/19 04:31 [place] % (Auto) 6.2 % (0.0-13.0) 09/27/19 04:31 Eos % (Auto) 0.2 % (0.9-2.9) L 09/27/19 04:31 Baso % (Auto) 0.3 % (0.2-1.0) 09/27/19 04:31 Neut # (Auto) 10.2 x10^3/uL (2.2-4.8) H 09/27/19 04:31 Lymph # (Auto) 1.2 X10^3/uL (1.3-2.9) L 09/27/19 04:31 [place] # (Auto) 0.8 x10^3/uL (0.3-0.8) 09/27/19 04:31 Eos # (Auto) 0.0 x10^3/uL (0.0-0.2) 09/27/19 04:31 Baso # (Auto) 0.0 X10^3/uL (0.0-0.1) 09/27/19 04:31 Absolute Nucleated RBC 0.0 /100WBC 09/27/19 04:31 Sodium 133 mmol/L (136-145) L 09/27/19 04:31 Corrected Sodium 135 mmol/L (136-145) L 09/27/19 04:31 Potassium 3.2 mmol/L (3.5-5.1) L 09/27/19 04:31 Chloride 99 mmol/L (98-107) 09/27/19 04:31 Carbon Dioxide 27.6 mmol/L (21-32) 09/27/19 04:31 BUN 6 mg/dL (7-18) L 09/27/19 04:31 Creatinine 0.77 mg/dL (0.70-1.30) 09/27/19 04:31 Est GFR (MDRD) Af Amer > 60 (>60) 09/27/19 04:31 Est GFR (MDRD) Non-Af > 60 (>60) 09/27/19 04:31 Glucose 165 mg/dL (65-99) H 09/27/19 04:31 Calcium 7.9 mg/dL (8.5-10.1) L 09/27/19 04:31 Corrected Calcium 9.4 mg/dL (8.5-10.1) 09/27/19 04:31 Magnesium 1.9 mg/dL (1.7-2.9) 09/27/19 04:31 Total Bilirubin 0.90 mg/dL (0.2-1.0) 09/27/19 04:31 AST 19 Units/L (15-37) 09/27/19 04:31 ALT 10 Units/L (12-78) L 09/27/19 04:31 Alkaline Phosphatase 64 Units/L (46-116) 09/27/19 04:31 Total Protein 5.5 g/dL (6.4-8.2) L 09/27/19 04:31 Albumin 2.1 g/dL (3.4-5.0) L 09/27/19 04:31 Globulin 3.4 g/dL (2.5-4.5) 09/27/19 04:31 Albumin/Globulin Ratio 0.6 Ratio (1.1-2.1) L 09/27/19 04:31 Specimen Type Catherized urine 09/27/19 03:44 Urine Color Yellow (YELLOW) 09/27/19 03:44 Urine Appearance Clear (CLEAR) 09/27/19 03:44 Urine pH 5.0 (5.0 - 8.0) 09/27/19 03:44 Ur Specific [place] 1.010 (1.000-1.030) 09/27/19 03:44 Urine Protein 2+ (NEGATIVE) 09/27/19 03:44 Urine Glucose (UA) Negative (NEGATIVE) 09/27/19 03:44 Urine Ketones Negative (NEGATIVE) 09/27/19 03:44 Urine Occult Blood 2+ (NEGATIVE) 09/27/19 03:44 Urine Nitrite Negative (NEGATIVE) 09/27/19 03:44 Urine Bilirubin Negative (NEGATIVE) 09/27/19 03:44 Urine Urobilinogen Normal (NORMAL) 09/27/19 03:44 Ur Leukocyte Esterase 1+ (NEGATIVE) 09/27/19 03:44 Urine RBC 0-2 /HPF (0-3) 09/27/19 03:44 Urine WBC 0-2 /HPF (0-5) 09/27/19 03:44 Ur Squamous Epith Cells Rare /HPF (NEGATIVE) 09/27/19 03:44 Ur Transition Epith Cell Cancelled 09/23/19 11:40 Ur Renal Epithelial Cell Cancelled 09/23/19 11:40 Calcium Oxalate Crystal Cancelled 09/23/19 11:40 Cystine Crystals Cancelled 09/23/19 11:40 Uric Acid Crystals Cancelled 09/23/19 11:40 Triple Phos Crystals Cancelled 09/23/19 11:40 Tyrosine Crystals Cancelled 09/23/19 11:40 Other Crystals Cancelled 09/23/19 11:40 Amorphous Sediment Cancelled 09/23/19 11:40 Urine Bacteria Negative /HPF (NEGATIVE) 09/27/19 03:44 Hyaline Casts Cancelled 09/23/19 11:40 Granular Casts Cancelled 09/23/19 11:40 Fine Granular Casts Cancelled 09/23/19 11:40 Coarse Granular Casts Cancelled 09/23/19 11:40 RBC Casts Cancelled 09/23/19 11:40 Other Casts Cancelled 09/23/19 11:40 Urine Mucus Cancelled 09/23/19 11:40 Urine Trichomonas Cancelled 09/23/19 11:40 Urine Yeast Cancelled 09/23/19 11:40 Urine Sperm Cancelled 09/23/19 11:40 Ur Culture Indicated? No/not indicated 09/27/19 03:44 Gastric Fluid pH 3 09/26/19 22:50 Gastric Occult Blood Positive (NEGATIVE) A 09/26/19 22:50 Tissue Pathology To follow 09/23/19 14:25 - Assessment and Plan 1: rectal ca . s/p resection with primary anastomosis . same PO care . DVT pro phylaxis , OOB ,. on soft diet . physical Tx to ambulate , D/C catheter again. Pt would benefit from short term placement or swing bed before sending him home . - Problem Patient Problems: Patient Problems S/P colon resection (Acute) Z90.49
--- NOTE | 2019-09-27 14:17 | PCM.PROG ---
Progress Note Progress Note for Day of Date of Exam: 09/27/19 Subjective Subjective: Pt is an 84 yo m s/p rectal cancer resection, POD#4. Denies abdominal pain. Yesterday, had garcia removed but had to be replaced after overnight nausea/vomiting and concern for decreased output. Will attempt today to remove garcia catheter. There is no stool in colostomy bag, however patient w as able to eat yesterday. His potassium and magnesium was low this morning, will replete. Will need to work with PT to ambulate. Pt would benefit from short term placement or swing bed, will discuss. Continue to monitor and follow up AM labs. Past Medical Family Social History Past Med/Fam/Surg Hx: No changes since H&P Allergies: Allergies No Known Drug Allergies Allergy (Verified 07/24/19 21:32) Review of Systems ROS: No change since H&P Vital Signs and I&O's Vital Signs: Temperature 99.4 F Pulse Rate [Apical] 106 Pulse Rate 92 Respiratory Rate 22 Blood Pressure [Right Arm] 109/57 Blood Pressure [Left Arm] 115/56 Blood Pressure 136/65 O2 Sat by Pulse Oximetry 98 Intake and Output: Intake & Output 09/24/19 09/25/19 09/26/19 09/27/19 23:59 23:59 23:59 23:59 Intake Total 2284 / 2284 3767 / 3767 3030 / 3030 120 / 120 Output Total 1271 / 1306 2490 / 2590 955 / 955 650 / 650 Balance 1013 / 978 1277 / 1177 2075 / 2075 -530 / -530 Physical Exam Oriented: Normal Eyes: Normal Nose: Normal Respiratory: Normal Cardiovascular: Normal : Other (has garcia in place .) Auscultation: Bowel Sounds: Normal Palpation: Normal Tenderness: Normal and Other (soft abdomen , mild incisional tenderness . BS +. drain was removed ) Skin: Normal Musculoskeletal: Normal Psychiatric: Normal Mood Description: Calm Affect: Normal Speech Pattern: Clear and Appropriate Laboratory and Diagnostics Result Diagrams: 09/27/19 04:31 09/27/19 04:31 Labs: Laboratory WBC 12.2 X10^3/uL (3.6-10.0) H 09/27/19 04:31 RBC 3.69 X10^6/uL (4.7-6.0) L 09/27/19 04:31 Hgb 11.5 g/dL (13.5-18.0) L 09/27/19 04:31 Hct 34.0 % (42.0-54.0) L 09/27/19 04:31 MCV 92.2 fL (80.0-100.0) 09/27/19 04:31 MCH 31.1 pg (27.0-34.0) 09/27/19 04:31 MCHC 33.7 g/dL (33.0-35.0) 09/27/19 04:31 RDW 14.3 % (11.6-16.5) 09/27/19 04:31 Plt Count 203 X10^3/uL (150.0-450.0) 09/27/19 04:31 MPV 9.7 fL (7.4-11.0) 09/27/19 04:31 Neut % (Auto) 83.2 % (42.0-75.0) H 09/27/19 04:31 Lymph % (Auto) 10.1 % (21.0-51.0) L 09/27/19 04:31 [place] % (Auto) 6.2 % (0.0-13.0) 09/27/19 04:31 Eos % (Auto) 0.2 % (0.9-2.9) L 09/27/19 04:31 Baso % (Auto) 0.3 % (0.2-1.0) 09/27/19 04:31 Neut # (Auto) 10.2 x10^3/uL (2.2-4.8) H 09/27/19 04:31 Lymph # (Auto) 1.2 X10^3/uL (1.3-2.9) L 09/27/19 04:31 [place] # (Auto) 0.8 x10^3/uL (0.3-0.8) 09/27/19 04:31 Eos # (Auto) 0.0 x10^3/uL (0.0-0.2) 09/27/19 04:31 Baso # (Auto) 0.0 X10^3/uL (0.0-0.1) 09/27/19 04:31 Absolute Nucleated RBC 0.0 /100WBC 09/27/19 04:31 Sodium 133 mmol/L (136-145) L 09/27/19 04:31 Corrected Sodium 135 mmol/L (136-145) L 09/27/19 04:31 Potassium 3.2 mmol/L (3.5-5.1) L 09/27/19 04:31 Chloride 99 mmol/L (98-107) 09/27/19 04:31 Carbon Dioxide 27.6 mmol/L (21-32) 09/27/19 04:31 BUN 6 mg/dL (7-18) L 09/27/19 04:31 Creatinine 0.77 mg/dL (0.70-1.30) 09/27/19 04:31 Est GFR (MDRD) Af Amer > 60 (>60) 09/27/19 04:31 Est GFR (MDRD) Non-Af > 60 (>60) 09/27/19 04:31 Glucose 165 mg/dL (65-99) H 09/27/19 04:31 Calcium 7.9 mg/dL (8.5-10.1) L 09/27/19 04:31 Corrected Calcium 9.4 mg/dL (8.5-10.1) 09/27/19 04:31 Magnesium 1.9 mg/dL (1.7-2.9) 09/27/19 04:31 Total Bilirubin 0.90 mg/dL (0.2-1.0) 09/27/19 04:31 AST 19 Units/L (15-37) 09/27/19 04:31 ALT 10 Units/L (12-78) L 09/27/19 04:31 Alkaline Phosphatase 64 Units/L (46-116) 09/27/19 04:31 Total Protein 5.5 g/dL (6.4-8.2) L 09/27/19 04:31 Albumin 2.1 g/dL (3.4-5.0) L 09/27/19 04:31 Globulin 3.4 g/dL (2.5-4.5) 09/27/19 04:31 Albumin/Globulin Ratio 0.6 Ratio (1.1-2.1) L 09/27/19 04:31 Specimen Type Catherized urine 09/27/19 03:44 Urine Color Yellow (YELLOW) 09/27/19 03:44 Urine Appearance Clear (CLEAR) 09/27/19 03:44 Urine pH 5.0 (5.0 - 8.0) 09/27/19 03:44 Ur Specific [place] 1.010 (1.000-1.030) 09/27/19 03:44 Urine Protein 2+ (NEGATIVE) 09/27/19 03:44 Urine Glucose (UA) Negative (NEGATIVE) 09/27/19 03:44 Urine Ketones Negative (NEGATIVE) 09/27/19 03:44 Urine Occult Blood 2+ (NEGATIVE) 09/27/19 03:44 Urine Nitrite Negative (NEGATIVE) 09/27/19 03:44 Urine Bilirubin Negative (NEGATIVE) 09/27/19 03:44 Urine Urobilinogen Normal (NORMAL) 09/27/19 03:44 Ur Leukocyte Esterase 1+ (NEGATIVE) 09/27/19 03:44 Urine RBC 0-2 /HPF (0-3) 09/27/19 03:44 Urine WBC 0-2 /HPF (0-5) 09/27/19 03:44 Ur Squamous Epith Cells Rare /HPF (NEGATIVE) 09/27/19 03:44 Ur Transition Epith Cell Cancelled 09/23/19 11:40 Ur Renal Epithelial Cell Cancelled 09/23/19 11:40 Calcium Oxalate Crystal Cancelled 09/23/19 11:40 Cystine Crystals Cancelled 09/23/19 11:40 Uric Acid Crystals Cancelled 09/23/19 11:40 Triple Phos Crystals Cancelled 09/23/19 11:40 Tyrosine Crystals Cancelled 09/23/19 11:40 Other Crystals Cancelled 09/23/19 11:40 Amorphous Sediment Cancelled 09/23/19 11:40 Urine Bacteria Negative /HPF (NEGATIVE) 09/27/19 03:44 Hyaline Casts Cancelled 09/23/19 11:40 Granular Casts Cancelled 09/23/19 11:40 Fine Granular Casts Cancelled 09/23/19 11:40 Coarse Granular Casts Cancelled 09/23/19 11:40 RBC Casts Cancelled 09/23/19 11:40 Other Casts Cancelled 09/23/19 11:40 Urine Mucus Cancelled 09/23/19 11:40 Urine Trichomonas Cancelled 09/23/19 11:40 Urine Yeast Cancelled 09/23/19 11:40 Urine Sperm Cancelled 09/23/19 11:40 Ur Culture Indicated? No/not indicated 09/27/19 03:44 Gastric Fluid pH 3 09/26/19 22:50 Gastric Occult Blood Positive (NEGATIVE) A 09/26/19 22:50 Tissue Pathology To follow 09/23/19 14:25 Plan (1) S/P colon resection: Status: Acute Plan: Continue care as per Surgery, POD#4, pain control and advance diet. Monitor UOP and colostomy status (2) Colonic mass: Status: Acute (3) Hypertension: Status: Chronic Qualifiers: Hypertension type: essential hypertension Qualified Code(s): I10 - Essential (primary) hypertension Plan: nifedipine (4) Hypothyroidism: Status: Chronic Qualifiers: Hypothyroidism type: unspecified Qualified Code(s): E03.9 - Hypothyroidism, unspecified Plan: resume levothyroxine
[2019-09-28] MEDS: ZOFRAN INJ 4 MG VIAL IVP PRN ×3 (01:49→20:42)
[2019-09-28 05:30] LABS: BASOPHILS % (AUTO) 0.2 % (0.2-1.0); EOSINOPHILS % (AUTO) 0.2 % (0.9-2.9); HEMOGLOBIN 11.6 g/dL (13.5-18.0); LYMPHOCYTES # (AUTO) 1.7 X10^3/uL (1.3-2.9); LYMPHOCYTES % (AUTO) 8.7 % (21.0-51.0); MEAN CORPUSCULAR HEMOGLOBIN 31.1 pg (27.0-34.0); MEAN CORPUSCULAR HGB CONC 34.2 g/dL (33.0-35.0); MEAN CORPUSCULAR VOLUME 91.1 fL (80.0-100.0); MEAN PLATELET VOLUME 9.5 fL (7.4-11.0); MONOCYTES # (AUTO) 1.5 x10^3/uL (0.3-0.8); MONOCYTES % (AUTO) 7.6 % (0.0-13.0); NEUTROPHILS # (AUTO) 16.2 x10^3/uL (2.2-4.8); NEUTROPHILS % (AUTO) 83.3 % (42.0-75.0); PLATELET COUNT 240 X10^3/uL (150.0-450.0); RED BLOOD COUNT 3.73 X10^6/uL (4.7-6.0); RED CELL DISTRIBUTION WIDTH 14.5 % (11.6-16.5); WHITE BLOOD COUNT 19.4 X10^3/uL (3.6-10.0)
[2019-09-28] MEDS: D5 1/2 NS 1000 ML 1,000 ML IV SCH ×3 (05:39→20:37)
[2019-09-28 05:40] LABS: BLOOD UREA NITROGEN 9 mg/dL (7-18); CALCIUM 7.7 mg/dL (8.5-10.1); CARBON DIOXIDE 26.2 mmol/L (21-32); CHLORIDE 98 mmol/L (98-107); COR NA(FOR HYPERGLY) 132 mmol/L (136-145); MAGNESIUM 1.8 mg/dL (1.7-2.9); PHOSPHORUS 1.5 mg/dL (2.6-4.7); SODIUM 131 mmol/L (136-145); eGFR NON BLACK RACES > 60 (>60)
[2019-09-28] MEDS: K-RIDER 10 MEQ/NS 100 ML 10 MEQ/100 ML BAG IV PRN ×2 (06:38→13:00)
[2019-09-28] MEDS ORDERED: XYLOCAINE JELLY TOP ONE ×2 (08:51→09:14)
[2019-09-28] MEDS: DILAUDID INJ IVP PRN (08:52)
[2019-09-28 09:16] LABS: BILIRUBIN,URINE NEGATIVE (NEGATIVE); BLOOD/HEMOGLOBIN,URINE 2+ (NEGATIVE); GLUCOSE, URINE NEGATIVE (NEGATIVE); KETONES,URINE NEGATIVE (NEGATIVE); LEUKOCYTE ESTERASE ,URINE 2+ (NEGATIVE); NITRITES,URINE NEGATIVE (NEGATIVE); PROTEIN,URINE 2+ (NEGATIVE); UROBILINOGEN,URINE NORMAL (NORMAL)
[2019-09-28 09:18] LABS: APPEARANCE,URINE SLIGHTLY HAZY (CLEAR); COLOR,URINE YELLOW (YELLOW)
[2019-09-28 09:22] LABS: BACTERIA,URINE TRACE /HPF (NEGATIVE); SQUAMOUS EPITHELIAL CELL,UR FEW /HPF (NEGATIVE)
--- NOTE | 2019-09-28 09:37 | PCM.PROG ---
Progress Note Progress Note for Day of Date of Exam: 09/28/19 Subjective Subjective: Pt is an 84 yo m s/p rectal cancer resection, POD#5. He did have some nausea and vomiting overnight. He has been eating and there is stool in colostomy bag. His phosphorous was low at 1.5, will replete. UA c/w infection, will start Rocephin. This morning nursing noted that his penis was "swollen", on exam it was edematous and he has not urinated in over 15 hours. He was given pain medication and attempt to replace garcia catheter was successful, with immediate urine output noted, will start Flomax to help. Pt would benefit from short term placement or swing bed, will discuss. Continue to monitor and follow up AM labs. Past Medical Family Social History Past Med/Fam/Surg Hx: No changes since H&P Allergies: Allergies No Known Drug Allergies Allergy (Verified 07/24/19 21:32) Review of Systems ROS: No change since H&P Vital Signs and I&O's Vital Signs: Temperature 97.6 F Pulse Rate [Apical] 95 Pulse Rate 92 Respiratory Rate 18 Blood Pressure [Right Arm] 109/57 Blood Pressure [Left Arm] 115/56 Blood Pressure 136/65 O2 Sat by Pulse Oximetry 94 Intake and Output: Intake & Output 09/25/19 09/26/19 09/27/19 09/28/19 23:59 23:59 23:59 23:59 Intake Total 3767 / 3767 3030 / 3030 2200 / 2200 30 / 30 Output Total 2490 / 2590 955 / 955 900 / 900 0 / 0 Balance 1277 / 1177 2075 / 2075 1300 / 1300 30 / 30 Physical Exam Oriented: Normal Eyes: Normal Nose: Normal Respiratory: Normal Cardiovascular: Normal : Other (has garcia in place, Penis edema) Auscultation: Bowel Sounds: Normal Tenderness: Normal and Other (soft abdomen , mild incisional tenderness . BS +. drain was removed ) Skin: Normal Musculoskeletal: Normal Psychiatric: Normal Mood Description: Calm Affect: Normal Speech Pattern: Clear and Appropriate Laboratory and Diagnostics Result Diagrams: 09/28/19 04:22 09/28/19 04:22 Labs: Laboratory WBC 19.4 X10^3/uL (3.6-10.0) H 09/28/19 04:22 RBC 3.73 X10^6/uL (4.7-6.0) L 09/28/19 04:22 Hgb 11.6 g/dL (13.5-18.0) L 09/28/19 04:22 Hct 34.0 % (42.0-54.0) L 09/28/19 04:22 MCV 91.1 fL (80.0-100.0) 09/28/19 04:22 MCH 31.1 pg (27.0-34.0) 09/28/19 04:22 MCHC 34.2 g/dL (33.0-35.0) 09/28/19 04:22 RDW 14.5 % (11.6-16.5) 09/28/19 04:22 Plt Count 240 X10^3/uL (150.0-450.0) 09/28/19 04:22 MPV 9.5 fL (7.4-11.0) 09/28/19 04:22 Neut % (Auto) 83.3 % (42.0-75.0) H 09/28/19 04:22 Lymph % (Auto) 8.7 % (21.0-51.0) L 09/28/19 04:22 [place] % (Auto) 7.6 % (0.0-13.0) 09/28/19 04:22 Eos % (Auto) 0.2 % (0.9-2.9) L 09/28/19 04:22 Baso % (Auto) 0.2 % (0.2-1.0) 09/28/19 04:22 Neut # (Auto) 16.2 x10^3/uL (2.2-4.8) H 09/28/19 04:22 Lymph # (Auto) 1.7 X10^3/uL (1.3-2.9) 09/28/19 04:22 [place] # (Auto) 1.5 x10^3/uL (0.3-0.8) H 09/28/19 04:22 Eos # (Auto) 0.0 x10^3/uL (0.0-0.2) 09/28/19 04:22 Baso # (Auto) 0.0 X10^3/uL (0.0-0.1) 09/28/19 04:22 Absolute Nucleated RBC 0.0 /100WBC 09/28/19 04:22 Sodium 131 mmol/L (136-145) L 09/28/19 04:22 Corrected Sodium 132 mmol/L (136-145) L 09/28/19 04:22 Potassium 3.7 mmol/L (3.5-5.1) 09/28/19 04:22 Chloride 98 mmol/L (98-107) 09/28/19 04:22 Carbon Dioxide 26.2 mmol/L (21-32) 09/28/19 04:22 BUN 9 mg/dL (7-18) 09/28/19 04:22 Creatinine 0.70 mg/dL (0.70-1.30) 09/28/19 04:22 Est GFR (MDRD) Af Amer > 60 (>60) 09/28/19 04:22 Est GFR (MDRD) Non-Af > 60 (>60) 09/28/19 04:22 Glucose 145 mg/dL (65-99) H 09/28/19 04:22 Calcium 7.7 mg/dL (8.5-10.1) L 09/28/19 04:22 Corrected Calcium 9.4 mg/dL (8.5-10.1) 09/27/19 04:31 Phosphorus 1.5 mg/dL (2.6-4.7) L 09/28/19 04:22 Magnesium 1.8 mg/dL (1.7-2.9) 09/28/19 04:22 Total Bilirubin 0.90 mg/dL (0.2-1.0) 09/27/19 04:31 AST 19 Units/L (15-37) 09/27/19 04:31 ALT 10 Units/L (12-78) L 09/27/19 04:31 Alkaline Phosphatase 64 Units/L (46-116) 09/27/19 04:31 Total Protein 5.5 g/dL (6.4-8.2) L 09/27/19 04:31 Albumin 2.1 g/dL (3.4-5.0) L 09/27/19 04:31 Globulin 3.4 g/dL (2.5-4.5) 09/27/19 04:31 Albumin/Globulin Ratio 0.6 Ratio (1.1-2.1) L 09/27/19 04:31 Specimen Type Catherized urine 09/28/19 09:00 Urine Color Yellow (YELLOW) 09/28/19 09:00 Urine Appearance Slightly hazy (CLEAR) 09/28/19 09:00 Urine pH 6.0 (5.0 - 8.0) 09/28/19 09:00 Ur Specific [place] 1.005 (1.000-1.030) 09/28/19 09:00 Urine Protein 2+ (NEGATIVE) 09/28/19 09:00 Urine Glucose (UA) Negative (NEGATIVE) 09/28/19 09:00 Urine Ketones Negative (NEGATIVE) 09/28/19 09:00 Urine Occult Blood 2+ (NEGATIVE) 09/28/19 09:00 Urine Nitrite Negative (NEGATIVE) 09/28/19 09:00 Urine Bilirubin Negative (NEGATIVE) 09/28/19 09:00 Urine Urobilinogen Normal (NORMAL) 09/28/19 09:00 Ur Leukocyte Esterase 2+ (NEGATIVE) 09/28/19 09:00 Urine RBC 5-10 /HPF (0-3) A 09/28/19 09:00 Urine WBC 5-10 /HPF (0-5) A 09/28/19 09:00 Ur Squamous Epith Cells Few /HPF (NEGATIVE) 09/28/19 09:00 Ur Transition Epith Cell Cancelled 09/23/19 11:40 Ur Renal Epithelial Cell Cancelled 09/23/19 11:40 Calcium Oxalate Crystal Cancelled 09/23/19 11:40 Cystine Crystals Cancelled 09/23/19 11:40 Uric Acid Crystals Cancelled 09/23/19 11:40 Triple Phos Crystals Cancelled 09/23/19 11:40 Tyrosine Crystals Cancelled 09/23/19 11:40 Other Crystals Cancelled 09/23/19 11:40 Amorphous Sediment Cancelled 09/23/19 11:40 Urine Bacteria Trace /HPF (NEGATIVE) 09/28/19 09:00 Hyaline Casts Cancelled 09/23/19 11:40 Granular Casts Cancelled 09/23/19 11:40 Fine Granular Casts Cancelled 09/23/19 11:40 Coarse Granular Casts Cancelled 09/23/19 11:40 RBC Casts Cancelled 09/23/19 11:40 Other Casts Cancelled 09/23/19 11:40 Urine Mucus Cancelled 09/23/19 11:40 Urine Trichomonas Cancelled 09/23/19 11:40 Urine Yeast Cancelled 09/23/19 11:40 Urine Sperm Cancelled 09/23/19 11:40 Ur Culture Indicated? Yes/culture set up 09/28/19 09:00 Gastric Fluid pH 3 09/26/19 22:50 Gastric Occult Blood Positive (NEGATIVE) A 09/26/19 22:50 Tissue Pathology To follow 09/23/19 14:25 Plan (1) S/P colon resection: Status: Acute Plan: Continue care as per Surgery, POD#5, pain control and advance diet. Monitor UOP and colostomy status, stool in colostomy bag today (2) Colonic mass: Status: Acute (3) Hypertension: Status: Chronic Qualifiers: Hypertension type: essential hypertension Qualified Code(s): I10 - Essential (primary) hypertension Plan: nifedipine (4) Hypothyroidism: Status: Chronic Qualifiers: Hypothyroidism type: unspecified Qualified Code(s): E03.9 - Hypothyroidism, unspecified Plan: resume levothyroxine (5) Urinary obstruction: Status: Acute Plan: Garcia placed (6) Urinary tract infection: Status: Acute Plan: UA c/w infection. UrineCx pending. Rocephin(09/28)
[2019-09-28] MEDS: PROTONIX INJ 40 MG VIAL IVP SCH (09:41)
[2019-09-28] MEDS: LOVENOX INJ 40 MG SYR SC SCH (09:45)
[2019-09-28] MEDS: SYNTHROID 125 mcg TAB PO SCH (09:45)
[2019-09-28] MEDS: PROCARDIA XL PO SCH (09:45)
[2019-09-28] MEDS: NEUTRA PHOS PO SCH ×2 (10:29→20:38)
[2019-09-28] MEDS: FLOMAX PO SCH (10:29)
[2019-09-28] MEDS: ROCEPHIN VIAL 1 GRAM 1 G in NS 100 ML IV + SPIKE MINIBAG* 100 ML IV SCH (11:13)
[2019-09-28] MEDS: MAGNESIUM SULFATE 1 GRAM/100 mL PREMIX 1 GM/100 ML BAG IV PRN ×2 (14:58→16:50)
[2019-09-28] MEDS: TAB-A-VITE PO SCH (16:50)
[2019-09-28] MEDS: JUVEN PO SCH (20:38)
[2019-09-29] MEDS: D5 1/2 NS 1000 ML 1,000 ML IV SCH ×3 (05:38→20:06)
[2019-09-29 05:50] LABS: BASOPHILS % (AUTO) 0.2 % (0.2-1.0); EOSINOPHILS # (AUTO) 0.1 x10^3/uL (0.0-0.2); EOSINOPHILS % (AUTO) 0.7 % (0.9-2.9); HEMATOCRIT 34.3 % (42.0-54.0); HEMOGLOBIN 11.6 g/dL (13.5-18.0); LYMPHOCYTES # (AUTO) 1.9 X10^3/uL (1.3-2.9); LYMPHOCYTES % (AUTO) 14.5 % (21.0-51.0); MEAN CORPUSCULAR HEMOGLOBIN 30.8 pg (27.0-34.0); MEAN CORPUSCULAR HGB CONC 33.9 g/dL (33.0-35.0); MEAN CORPUSCULAR VOLUME 90.9 fL (80.0-100.0); MEAN PLATELET VOLUME 8.6 fL (7.4-11.0); MONOCYTES # (AUTO) 1.1 x10^3/uL (0.3-0.8); MONOCYTES % (AUTO) 8.3 % (0.0-13.0); NEUTROPHILS # (AUTO) 9.7 x10^3/uL (2.2-4.8); NEUTROPHILS % (AUTO) 76.3 % (42.0-75.0); PLATELET COUNT 231 X10^3/uL (150.0-450.0); RED BLOOD COUNT 3.78 X10^6/uL (4.7-6.0); RED CELL DISTRIBUTION WIDTH 14.4 % (11.6-16.5); WHITE BLOOD COUNT 12.8 X10^3/uL (3.6-10.0)
[2019-09-29 05:54] LABS: BLOOD UREA NITROGEN 11 mg/dL (7-18); CALCIUM 7.7 mg/dL (8.5-10.1); CARBON DIOXIDE 27.1 mmol/L (21-32); CHLORIDE 98 mmol/L (98-107); CREATININE 0.73 mg/dL (0.70-1.30); MAGNESIUM 2.2 mg/dL (1.7-2.9); PHOSPHORUS 2.7 mg/dL (2.6-4.7); SODIUM 132 mmol/L (136-145); eGFR NON BLACK RACES > 60 (>60)
[2019-09-29] MEDS: LOVENOX INJ 40 MG SYR SC SCH (09:39)
[2019-09-29] MEDS: PROTONIX INJ 40 MG VIAL IVP SCH (09:39)
[2019-09-29] MEDS: ROCEPHIN VIAL 1 GRAM 1 G in NS 100 ML IV + SPIKE MINIBAG* 100 ML IV SCH (09:40)
[2019-09-29] MEDS: NEUTRA PHOS PO SCH ×2 (09:45→20:06)
[2019-09-29] MEDS: PROCARDIA XL PO SCH (09:45)
[2019-09-29] MEDS: FLOMAX PO SCH (09:45)
[2019-09-29] MEDS: SYNTHROID 125 mcg TAB PO SCH (09:45)
[2019-09-29] MEDS: TAB-A-VITE PO SCH (09:45)
[2019-09-29] MEDS: JUVEN PO SCH ×2 (09:46→20:04)
--- NOTE | 2019-09-29 10:33 | PCM.PROG ---
Progress Note Progress Note for Day of Date of Exam: 09/29/19 Subjective Subjective: Pt is an 84 yo m s/p rectal cancer resection, POD#6. He has been eating and there is stool in colostomy bag. His phosphorous and magnesium is wnl this morning after supplementation yesterday. UA c/w infection, Urinecx pending, he is receiving Rocephin, his WBC has trended down, 19>12.8. He has catheter placed and has good urine output, penile edema still present but reduced, will keep catheter in place. He is using IS, will add flutter valve. He was having some productive cough with white sputum, prelim culture showed some yeast, believe this to be oral at this time and pulmonary, will add some nystatin. Pt would benefit from short term placement or swing bed, will discuss. Continue to monitor and follow up AM labs. Past Medical Family Social History Past Med/Fam/Surg Hx: No changes since H&P Allergies: Allergies No Known Drug Allergies Allergy (Verified 07/24/19 21:32) Review of Systems ROS: No change since H&P Vital Signs and I&O's Vital Signs: Temperature 97.8 F Pulse Rate [Left Brachial] 103 Pulse Rate [Apical] 81 Pulse Rate 99 Respiratory Rate 20 Blood Pressure [Right Arm] 109/57 Blood Pressure [Left Arm] 116/59 Blood Pressure 136/65 O2 Sat by Pulse Oximetry 95 Intake and Output: Intake & Output 09/26/19 09/27/19 09/28/19 09/29/19 23:59 23:59 23:59 23:59 Intake Total 3030 / 3030 2200 / 2200 1470 / 1470 120 / 120 Output Total 955 / 955 900 / 900 1400 / 1400 800 / 800 Balance 2075 / 2074 1300 / 1300 70 / 70 -680 / -680 Physical Exam Oriented: Normal Eyes: Normal Nose: Normal Respiratory: Normal Cardiovascular: Normal : Other (has garcia in place, Penis edema) Auscultation: Bowel Sounds: Normal Tenderness: Normal and Other (soft abdomen , mild incisional tenderness . BS +. drain was removed ) Skin: Normal Musculoskeletal: Normal Psychiatric: Normal Mood Description: Calm Affect: Normal Speech Pattern: Clear and Appropriate Laboratory and Diagnostics Result Diagrams: 09/29/19 04:40 09/29/19 04:40 Labs: 09/29/19 08:20 Sputum - Expectorated Sputum - Final Laboratory WBC 12.8 X10^3/uL (3.6-10.0) H 09/29/19 04:40 RBC 3.78 X10^6/uL (4.7-6.0) L 09/29/19 04:40 Hgb 11.6 g/dL (13.5-18.0) L 09/29/19 04:40 Hct 34.3 % (42.0-54.0) L 09/29/19 04:40 MCV 90.9 fL (80.0-100.0) 09/29/19 04:40 MCH 30.8 pg (27.0-34.0) 09/29/19 04:40 MCHC 33.9 g/dL (33.0-35.0) 09/29/19 04:40 RDW 14.4 % (11.6-16.5) 09/29/19 04:40 Plt Count 231 X10^3/uL (150.0-450.0) 09/29/19 04:40 MPV 8.6 fL (7.4-11.0) 09/29/19 04:40 Neut % (Auto) 76.3 % (42.0-75.0) H 09/29/19 04:40 Lymph % (Auto) 14.5 % (21.0-51.0) L 09/29/19 04:40 [place] % (Auto) 8.3 % (0.0-13.0) 09/29/19 04:40 Eos % (Auto) 0.7 % (0.9-2.9) L 09/29/19 04:40 Baso % (Auto) 0.2 % (0.2-1.0) 09/29/19 04:40 Neut # (Auto) 9.7 x10^3/uL (2.2-4.8) H 09/29/19 04:40 Lymph # (Auto) 1.9 X10^3/uL (1.3-2.9) 09/29/19 04:40 [place] # (Auto) 1.1 x10^3/uL (0.3-0.8) H 09/29/19 04:40 Eos # (Auto) 0.1 x10^3/uL (0.0-0.2) 09/29/19 04:40 Baso # (Auto) 0.0 X10^3/uL (0.0-0.1) 09/29/19 04:40 Absolute Nucleated RBC 0.0 /100WBC 09/29/19 04:40 Sodium 132 mmol/L (136-145) L 09/29/19 04:40 Corrected Sodium TNP 09/29/19 04:40 Potassium 4.0 mmol/L (3.5-5.1) 09/29/19 04:40 Chloride 98 mmol/L (98-107) 09/29/19 04:40 Carbon Dioxide 27.1 mmol/L (21-32) 09/29/19 04:40 BUN 11 mg/dL (7-18) 09/29/19 04:40 Creatinine 0.73 mg/dL (0.70-1.30) 09/29/19 04:40 Est GFR (MDRD) Af Amer > 60 (>60) 09/29/19 04:40 Est GFR (MDRD) Non-Af > 60 (>60) 09/29/19 04:40 Glucose 110 mg/dL (65-99) H 09/29/19 04:40 Calcium 7.7 mg/dL (8.5-10.1) L 09/29/19 04:40 Corrected Calcium 9.4 mg/dL (8.5-10.1) 09/27/19 04:31 Phosphorus 2.7 mg/dL (2.6-4.7) 09/29/19 04:40 Magnesium 2.2 mg/dL (1.7-2.9) 09/29/19 04:40 Total Bilirubin 0.90 mg/dL (0.2-1.0) 09/27/19 04:31 AST 19 Units/L (15-37) 09/27/19 04:31 ALT 10 Units/L (12-78) L 09/27/19 04:31 Alkaline Phosphatase 64 Units/L (46-116) 09/27/19 04:31 Total Protein 5.5 g/dL (6.4-8.2) L 09/27/19 04:31 Albumin 2.1 g/dL (3.4-5.0) L 09/27/19 04:31 Globulin 3.4 g/dL (2.5-4.5) 09/27/19 04:31 Albumin/Globulin Ratio 0.6 Ratio (1.1-2.1) L 09/27/19 04:31 Specimen Type Catherized urine 09/28/19 09:00 Urine Color Yellow (YELLOW) 09/28/19 09:00 Urine Appearance Slightly hazy (CLEAR) 09/28/19 09:00 Urine pH 6.0 (5.0 - 8.0) 09/28/19 09:00 Ur Specific [place] 1.005 (1.000-1.030) 09/28/19 09:00 Urine Protein 2+ (NEGATIVE) 09/28/19 09:00 Urine Glucose (UA) Negative (NEGATIVE) 09/28/19 09:00 Urine Ketones Negative (NEGATIVE) 09/28/19 09:00 Urine Occult Blood 2+ (NEGATIVE) 09/28/19 09:00 Urine Nitrite Negative (NEGATIVE) 09/28/19 09:00 Urine Bilirubin Negative (NEGATIVE) 09/28/19 09:00 Urine Urobilinogen Normal (NORMAL) 09/28/19 09:00 Ur Leukocyte Esterase 2+ (NEGATIVE) 09/28/19 09:00 Urine RBC 5-10 /HPF (0-3) A 09/28/19 09:00 Urine WBC 5-10 /HPF (0-5) A 09/28/19 09:00 Ur Squamous Epith Cells Few /HPF (NEGATIVE) 09/28/19 09:00 Ur Transition Epith Cell Cancelled 09/23/19 11:40 Ur Renal Epithelial Cell Cancelled 09/23/19 11:40 Calcium Oxalate Crystal Cancelled 09/23/19 11:40 Cystine Crystals Cancelled 09/23/19 11:40 Uric Acid Crystals Cancelled 09/23/19 11:40 Triple Phos Crystals Cancelled 09/23/19 11:40 Tyrosine Crystals Cancelled 09/23/19 11:40 Other Crystals Cancelled 09/23/19 11:40 Amorphous Sediment Cancelled 09/23/19 11:40 Urine Bacteria Trace /HPF (NEGATIVE) 09/28/19 09:00 Hyaline Casts Cancelled 09/23/19 11:40 Granular Casts Cancelled 09/23/19 11:40 Fine Granular Casts Cancelled 09/23/19 11:40 Coarse Granular Casts Cancelled 09/23/19 11:40 RBC Casts Cancelled 09/23/19 11:40 Other Casts Cancelled 09/23/19 11:40 Urine Mucus Cancelled 09/23/19 11:40 Urine Trichomonas Cancelled 09/23/19 11:40 Urine Yeast Cancelled 09/23/19 11:40 Urine Sperm Cancelled 09/23/19 11:40 Ur Culture Indicated? Yes/culture set up 09/28/19 09:00 Gastric Fluid pH 3 09/26/19 22:50 Gastric Occult Blood Positive (NEGATIVE) A 09/26/19 22:50 Tissue Pathology To follow 09/23/19 14:25 Plan (1) S/P colon resection: Status: Acute Plan: Continue care as per Surgery, POD#6, pain control and advance diet. Monitor UOP and colostomy status, stool in colostomy bag today (2) Urinary tract infection: Status: Acute Plan: UA c/w infection. UrineCx pending. Malik(09/28) (3) Urinary obstruction: Status: Acute Plan: Garcia placed, edema present but reduced from yesterday (4) Colonic mass: Status: Acute (5) Hypertension: Status: Chronic Qualifiers: Hypertension type: essential hypertension Qualified Code(s): I10 - Essential (primary) hypertension Plan: nifedipine (6) Hypothyroidism: Status: Chronic Qualifiers: Hypothyroidism type: unspecified Qualified Code(s): E03.9 - Hypothyroidism, unspecified Plan: resume levothyroxine
[2019-09-29] MEDS: NYSTATIN SUSP PO SCH ×3 (13:50→20:06)
[2019-09-30] MEDS: D5 1/2 NS 1000 ML 1,000 ML IV SCH ×3 (04:59→21:30)
[2019-09-30 05:27] LABS: BASOPHILS % (AUTO) 0.3 % (0.2-1.0); EOSINOPHILS # (AUTO) 0.2 x10^3/uL (0.0-0.2); EOSINOPHILS % (AUTO) 1.6 % (0.9-2.9); HEMATOCRIT 30.8 % (42.0-54.0); HEMOGLOBIN 10.5 g/dL (13.5-18.0); LYMPHOCYTES % (AUTO) 18.4 % (21.0-51.0); MEAN CORPUSCULAR HEMOGLOBIN 31.3 pg (27.0-34.0); MEAN CORPUSCULAR HGB CONC 34.3 g/dL (33.0-35.0); MEAN CORPUSCULAR VOLUME 91.4 fL (80.0-100.0); MEAN PLATELET VOLUME 8.8 fL (7.4-11.0); MONOCYTES # (AUTO) 0.9 x10^3/uL (0.3-0.8); MONOCYTES % (AUTO) 8.4 % (0.0-13.0); NEUTROPHILS # (AUTO) 7.8 x10^3/uL (2.2-4.8); NEUTROPHILS % (AUTO) 71.3 % (42.0-75.0); PLATELET COUNT 255 X10^3/uL (150.0-450.0); RED BLOOD COUNT 3.37 X10^6/uL (4.7-6.0); RED CELL DISTRIBUTION WIDTH 14.5 % (11.6-16.5); WHITE BLOOD COUNT 10.9 X10^3/uL (3.6-10.0)
[2019-09-30 05:37] LABS: BLOOD UREA NITROGEN 22 mg/dL (7-18); CALCIUM 7.6 mg/dL (8.5-10.1); CARBON DIOXIDE 28.4 mmol/L (21-32); CHLORIDE 99 mmol/L (98-107); CREATININE 0.77 mg/dL (0.70-1.30); PHOSPHORUS 2.8 mg/dL (2.6-4.7); SODIUM 132 mmol/L (136-145); eGFR NON BLACK RACES > 60 (>60)
[2019-09-30] MEDS: SYNTHROID 125 mcg TAB PO SCH (09:44)
[2019-09-30] MEDS: ROCEPHIN VIAL 1 GRAM 1 G in NS 100 ML IV + SPIKE MINIBAG* 100 ML IV SCH (09:44)
[2019-09-30] MEDS: NEUTRA PHOS PO SCH (09:45)
[2019-09-30] MEDS: NYSTATIN SUSP PO SCH ×4 (09:46→21:31)
[2019-09-30] MEDS: JUVEN PO SCH ×2 (09:46→21:30)
[2019-09-30] MEDS: LOVENOX INJ 40 MG SYR SC SCH (09:46)
[2019-09-30] MEDS: PROTONIX INJ 40 MG VIAL IVP SCH (09:46)
[2019-09-30] MEDS: TAB-A-VITE PO SCH (09:46)
[2019-09-30] MEDS: FLOMAX PO SCH (09:46)
[2019-09-30] MEDS: PROCARDIA XL PO SCH (09:46)
--- NOTE | 2019-09-30 10:43 | PCM.PROG ---
Progress Note Progress Note for Day of Date of Exam: 09/30/19 Subjective Subjective: Pt is an 84 yo m s/p rectal cancer resection, POD#7. He is tolerating po, there is stool in colostomy bag. UrineCx positive for E. coli, he is receiving Rocephin, will change to Keflex x 4 days. His WBC continues to trend down, 12.8>10.9. He has catheter placed and has good urine output, penile edema still present but reduced, will keep catheter in place, urology referral outpatient. Will discuss with PT to work with pt today. Continue to monitor and follow up AM labs. Past Medical Family Social History Past Med/Fam/Surg Hx: No changes since H&P Allergies: Allergies No Known Drug Allergies Allergy (Verified 07/24/19 21:32) Review of Systems ROS: No change since H&P Vital Signs and I&O's Vital Signs: Temperature 98.3 F Pulse Rate [Left Brachial] 99 Pulse Rate [Apical] 81 Pulse Rate 99 Respiratory Rate 18 Blood Pressure [Right Arm] 109/57 Blood Pressure [Left Arm] 119/63 Blood Pressure 136/65 O2 Sat by Pulse Oximetry 95 Intake and Output: Intake & Output 09/27/19 09/28/19 09/29/19 09/30/19 23:59 23:59 23:59 23:59 Intake Total 2200 / 2200 1470 / 1470 1550 / 1550 0 / 0 Output Total 900 / 900 1400 / 1400 1425 / 1425 1300 / 1300 Balance 1300 / 1300 70 / 70 125 / 125 -1300 / -1300 Physical Exam Oriented: Normal Eyes: Normal Nose: Normal Respiratory: Normal Cardiovascular: Normal : Other (has garcia in place, Penis edema) Auscultation: Bowel Sounds: Normal Tenderness: Normal and Other (soft abdomen , mild incisional tenderness . BS +. drain was removed ) Skin: Normal Musculoskeletal: Normal Psychiatric: Normal Mood Description: Calm Affect: Normal Speech Pattern: Clear and Appropriate Laboratory and Diagnostics Result Diagrams: 09/30/19 04:45 09/30/19 04:45 Labs: 09/29/19 08:20 Sputum - Expectorated Sputum Sputum Culture - Preliminary 09/29/19 08:20 Sputum - Expectorated Sputum - Final 09/28/19 09:00 Urine,Catheterized Urine Culture - Final Escherichia Coli Laboratory WBC 10.9 X10^3/uL (3.6-10.0) H 09/30/19 04:45 RBC 3.37 X10^6/uL (4.7-6.0) L 09/30/19 04:45 Hgb 10.5 g/dL (13.5-18.0) L 09/30/19 04:45 Hct 30.8 % (42.0-54.0) L 09/30/19 04:45 MCV 91.4 fL (80.0-100.0) 09/30/19 04:45 MCH 31.3 pg (27.0-34.0) 09/30/19 04:45 MCHC 34.3 g/dL (33.0-35.0) 09/30/19 04:45 RDW 14.5 % (11.6-16.5) 09/30/19 04:45 Plt Count 255 X10^3/uL (150.0-450.0) 09/30/19 04:45 MPV 8.8 fL (7.4-11.0) 09/30/19 04:45 Neut % (Auto) 71.3 % (42.0-75.0) 09/30/19 04:45 Lymph % (Auto) 18.4 % (21.0-51.0) L 09/30/19 04:45 [place] % (Auto) 8.4 % (0.0-13.0) 09/30/19 04:45 Eos % (Auto) 1.6 % (0.9-2.9) 09/30/19 04:45 Baso % (Auto) 0.3 % (0.2-1.0) 09/30/19 04:45 Neut # (Auto) 7.8 x10^3/uL (2.2-4.8) H 09/30/19 04:45 Lymph # (Auto) 2.0 X10^3/uL (1.3-2.9) 09/30/19 04:45 [place] # (Auto) 0.9 x10^3/uL (0.3-0.8) H 09/30/19 04:45 Eos # (Auto) 0.2 x10^3/uL (0.0-0.2) 09/30/19 04:45 Baso # (Auto) 0.0 X10^3/uL (0.0-0.1) 09/30/19 04:45 Absolute Nucleated RBC 0.1 /100WBC 09/30/19 04:45 Sodium 132 mmol/L (136-145) L 09/30/19 04:45 Corrected Sodium TNP 09/30/19 04:45 Potassium 3.9 mmol/L (3.5-5.1) 09/30/19 04:45 Chloride 99 mmol/L (98-107) 09/30/19 04:45 Carbon Dioxide 28.4 mmol/L (21-32) 09/30/19 04:45 BUN 22 mg/dL (7-18) H 09/30/19 04:45 Creatinine 0.77 mg/dL (0.70-1.30) 09/30/19 04:45 Est GFR (MDRD) Af Amer > 60 (>60) 09/30/19 04:45 Est GFR (MDRD) Non-Af > 60 (>60) 09/30/19 04:45 Glucose 107 mg/dL (65-99) H 09/30/19 04:45 Calcium 7.6 mg/dL (8.5-10.1) L 09/30/19 04:45 Corrected Calcium 9.4 mg/dL (8.5-10.1) 09/27/19 04:31 Phosphorus 2.8 mg/dL (2.6-4.7) 09/30/19 04:45 Magnesium 2.0 mg/dL (1.7-2.9) 09/30/19 04:45 Total Bilirubin 0.90 mg/dL (0.2-1.0) 09/27/19 04:31 AST 19 Units/L (15-37) 09/27/19 04:31 ALT 10 Units/L (12-78) L 09/27/19 04:31 Alkaline Phosphatase 64 Units/L (46-116) 09/27/19 04:31 Total Protein 5.5 g/dL (6.4-8.2) L 09/27/19 04:31 Albumin 2.1 g/dL (3.4-5.0) L 09/27/19 04:31 Globulin 3.4 g/dL (2.5-4.5) 09/27/19 04:31 Albumin/Globulin Ratio 0.6 Ratio (1.1-2.1) L 09/27/19 04:31 Specimen Type Catherized urine 09/28/19 09:00 Urine Color Yellow (YELLOW) 09/28/19 09:00 Urine Appearance Slightly hazy (CLEAR) 09/28/19 09:00 Urine pH 6.0 (5.0 - 8.0) 09/28/19 09:00 Ur Specific [place] 1.005 (1.000-1.030) 09/28/19 09:00 Urine Protein 2+ (NEGATIVE) 09/28/19 09:00 Urine Glucose (UA) Negative (NEGATIVE) 09/28/19 09:00 Urine Ketones Negative (NEGATIVE) 09/28/19 09:00 Urine Occult Blood 2+ (NEGATIVE) 09/28/19 09:00 Urine Nitrite Negative (NEGATIVE) 09/28/19 09:00 Urine Bilirubin Negative (NEGATIVE) 09/28/19 09:00 Urine Urobilinogen Normal (NORMAL) 09/28/19 09:00 Ur Leukocyte Esterase 2+ (NEGATIVE) 09/28/19 09:00 Urine RBC 5-10 /HPF (0-3) A 09/28/19 09:00 Urine WBC 5-10 /HPF (0-5) A 09/28/19 09:00 Ur Squamous Epith Cells Few /HPF (NEGATIVE) 09/28/19 09:00 Ur Transition Epith Cell Cancelled 09/23/19 11:40 Ur Renal Epithelial Cell Cancelled 09/23/19 11:40 Calcium Oxalate Crystal Cancelled 09/23/19 11:40 Cystine Crystals Cancelled 09/23/19 11:40 Uric Acid Crystals Cancelled 09/23/19 11:40 Triple Phos Crystals Cancelled 09/23/19 11:40 Tyrosine Crystals Cancelled 09/23/19 11:40 Other Crystals Cancelled 09/23/19 11:40 Amorphous Sediment Cancelled 09/23/19 11:40 Urine Bacteria Trace /HPF (NEGATIVE) 09/28/19 09:00 Hyaline Casts Cancelled 09/23/19 11:40 Granular Casts Cancelled 09/23/19 11:40 Fine Granular Casts Cancelled 09/23/19 11:40 Coarse Granular Casts Cancelled 09/23/19 11:40 RBC Casts Cancelled 09/23/19 11:40 Other Casts Cancelled 09/23/19 11:40 Urine Mucus Cancelled 09/23/19 11:40 Urine Trichomonas Cancelled 09/23/19 11:40 Urine Yeast Cancelled 09/23/19 11:40 Urine Sperm Cancelled 09/23/19 11:40 Ur Culture Indicated? Yes/culture set up 09/28/19 09:00 Gastric Fluid pH 3 09/26/19 22:50 Gastric Occult Blood Positive (NEGATIVE) A 09/26/19 22:50 Tissue Pathology To follow 09/23/19 14:25 Plan (1) S/P colon resection: Status: Acute Plan: Continue care as per Surgery, POD#7, pain control and advance diet. Monitor UOP and colostomy status, stool in colostomy bag today (2) Urinary tract infection: Status: Acute Plan: UrineCx positive E. coli, will d/c Rocephin and start tomorrow Keflex x 4 days to complete course. (3) Urinary obstruction: Status: Acute Plan: Garcia placed, edema present but reduced from yesterday Referral urology outpatient (4) Colonic mass: Status: Acute (5) Hypertension: Status: Chronic Qualifiers: Hypertension type: essential hypertension Qualified Code(s): I10 - Essential (primary) hypertension Plan: nifedipine (6) Hypothyroidism: Status: Chronic Qualifiers: Hypothyroidism type: unspecified Qualified Code(s): E03.9 - Hypothyroidism, unspecified Plan: resume levothyroxine
--- NOTE | 2019-09-30 16:14 | DR.PROGNOT ---
Hospital Progress Notes - Progress Note for Day of: Progress Note Date: 09/30/19 - Chief Complaint Chief Complaint: no vomited today . oral intake is very poor . garcia cath had to be re inserted. colostomy is functioning now . - Past Medical Family Social History Past Med/Fam/Surg Hx: No changes since H&P Allergies: Allergies No Known Drug Allergies Allergy (Verified 07/24/19 21:32) - Review Of Systems ROS: No change since H&P - Vital Signs Vital Signs: Temperature 97.8 F Pulse Rate [Left Brachial] 93 Pulse Rate [Apical] 81 Pulse Rate 99 Respiratory Rate 20 Blood Pressure [Right Arm] 109/57 Blood Pressure [Left Arm] 120/72 Blood Pressure 136/65 O2 Sat by Pulse Oximetry 93 - Physical Exam Oriented: Normal Eyes: Normal Nose: Normal Respiratory: Normal Cardiovascular: Normal : Other (has garcia in place, Penis edema) GI:Auscultation: Normal GI:Palpation: Normal GI: Tenderness: Normal, Other (soft abdomen , mild incisional tenderness . BS +. drain was removed) Skin: Normal Musculoskeletal: Normal Psychiatric: Normal Mood Description: Calm Affect: Normal Speech Pattern: Clear, Appropriate - Laboratory and Diagnostics Result Diagrams: 09/30/19 04:45 09/30/19 04:45 Labs: 09/29/19 08:20 Sputum - Expectorated Sputum Sputum Culture - Preliminary 09/29/19 08:20 Sputum - Expectorated Sputum - Final 09/28/19 09:00 Urine,Catheterized Urine Culture - Final Escherichia Coli Laboratory WBC 10.9 X10^3/uL (3.6-10.0) H 09/30/19 04:45 RBC 3.37 X10^6/uL (4.7-6.0) L 09/30/19 04:45 Hgb 10.5 g/dL (13.5-18.0) L 09/30/19 04:45 Hct 30.8 % (42.0-54.0) L 09/30/19 04:45 MCV 91.4 fL (80.0-100.0) 09/30/19 04:45 MCH 31.3 pg (27.0-34.0) 09/30/19 04:45 MCHC 34.3 g/dL (33.0-35.0) 09/30/19 04:45 RDW 14.5 % (11.6-16.5) 09/30/19 04:45 Plt Count 255 X10^3/uL (150.0-450.0) 09/30/19 04:45 MPV 8.8 fL (7.4-11.0) 09/30/19 04:45 Neut % (Auto) 71.3 % (42.0-75.0) 09/30/19 04:45 Lymph % (Auto) 18.4 % (21.0-51.0) L 09/30/19 04:45 [place] % (Auto) 8.4 % (0.0-13.0) 09/30/19 04:45 Eos % (Auto) 1.6 % (0.9-2.9) 09/30/19 04:45 Baso % (Auto) 0.3 % (0.2-1.0) 09/30/19 04:45 Neut # (Auto) 7.8 x10^3/uL (2.2-4.8) H 09/30/19 04:45 Lymph # (Auto) 2.0 X10^3/uL (1.3-2.9) 09/30/19 04:45 [place] # (Auto) 0.9 x10^3/uL (0.3-0.8) H 09/30/19 04:45 Eos # (Auto) 0.2 x10^3/uL (0.0-0.2) 09/30/19 04:45 Baso # (Auto) 0.0 X10^3/uL (0.0-0.1) 09/30/19 04:45 Absolute Nucleated RBC 0.1 /100WBC 09/30/19 04:45 Sodium 132 mmol/L (136-145) L 09/30/19 04:45 Corrected Sodium TNP 09/30/19 04:45 Potassium 3.9 mmol/L (3.5-5.1) 09/30/19 04:45 Chloride 99 mmol/L (98-107) 09/30/19 04:45 Carbon Dioxide 28.4 mmol/L (21-32) 09/30/19 04:45 BUN 22 mg/dL (7-18) H 09/30/19 04:45 Creatinine 0.77 mg/dL (0.70-1.30) 09/30/19 04:45 Est GFR (MDRD) Af Amer > 60 (>60) 09/30/19 04:45 Est GFR (MDRD) Non-Af > 60 (>60) 09/30/19 04:45 Glucose 107 mg/dL (65-99) H 09/30/19 04:45 Calcium 7.6 mg/dL (8.5-10.1) L 09/30/19 04:45 Corrected Calcium 9.4 mg/dL (8.5-10.1) 09/27/19 04:31 Phosphorus 2.8 mg/dL (2.6-4.7) 09/30/19 04:45 Magnesium 2.0 mg/dL (1.7-2.9) 09/30/19 04:45 Total Bilirubin 0.90 mg/dL (0.2-1.0) 09/27/19 04:31 AST 19 Units/L (15-37) 09/27/19 04:31 ALT 10 Units/L (12-78) L 09/27/19 04:31 Alkaline Phosphatase 64 Units/L (46-116) 09/27/19 04:31 Total Protein 5.5 g/dL (6.4-8.2) L 09/27/19 04:31 Albumin 2.1 g/dL (3.4-5.0) L 09/27/19 04:31 Globulin 3.4 g/dL (2.5-4.5) 09/27/19 04:31 Albumin/Globulin Ratio 0.6 Ratio (1.1-2.1) L 09/27/19 04:31 Specimen Type Catherized urine 09/28/19 09:00 Urine Color Yellow (YELLOW) 09/28/19 09:00 Urine Appearance Slightly hazy (CLEAR) 09/28/19 09:00 Urine pH 6.0 (5.0 - 8.0) 09/28/19 09:00 Ur Specific [place] 1.005 (1.000-1.030) 09/28/19 09:00 Urine Protein 2+ (NEGATIVE) 09/28/19 09:00 Urine Glucose (UA) Negative (NEGATIVE) 09/28/19 09:00 Urine Ketones Negative (NEGATIVE) 09/28/19 09:00 Urine Occult Blood 2+ (NEGATIVE) 09/28/19 09:00 Urine Nitrite Negative (NEGATIVE) 09/28/19 09:00 Urine Bilirubin Negative (NEGATIVE) 09/28/19 09:00 Urine Urobilinogen Normal (NORMAL) 09/28/19 09:00 Ur Leukocyte Esterase 2+ (NEGATIVE) 09/28/19 09:00 Urine RBC 5-10 /HPF (0-3) A 09/28/19 09:00 Urine WBC 5-10 /HPF (0-5) A 09/28/19 09:00 Ur Squamous Epith Cells Few /HPF (NEGATIVE) 09/28/19 09:00 Ur Transition Epith Cell Cancelled 09/23/19 11:40 Ur Renal Epithelial Cell Cancelled 09/23/19 11:40 Calcium Oxalate Crystal Cancelled 09/23/19 11:40 Cystine Crystals Cancelled 09/23/19 11:40 Uric Acid Crystals Cancelled 09/23/19 11:40 Triple Phos Crystals Cancelled 09/23/19 11:40 Tyrosine Crystals Cancelled 09/23/19 11:40 Other Crystals Cancelled 09/23/19 11:40 Amorphous Sediment Cancelled 09/23/19 11:40 Urine Bacteria Trace /HPF (NEGATIVE) 09/28/19 09:00 Hyaline Casts Cancelled 09/23/19 11:40 Granular Casts Cancelled 09/23/19 11:40 Fine Granular Casts Cancelled 09/23/19 11:40 Coarse Granular Casts Cancelled 09/23/19 11:40 RBC Casts Cancelled 09/23/19 11:40 Other Casts Cancelled 09/23/19 11:40 Urine Mucus Cancelled 09/23/19 11:40 Urine Trichomonas Cancelled 09/23/19 11:40 Urine Yeast Cancelled 09/23/19 11:40 Urine Sperm Cancelled 09/23/19 11:40 Ur Culture Indicated? Yes/culture set up 09/28/19 09:00 Gastric Fluid pH 3 09/26/19 22:50 Gastric Occult Blood Positive (NEGATIVE) A 09/26/19 22:50 Tissue Pathology To follow 09/23/19 14:25 - Assessment and Plan 1: rectal ca . s/p resection with primary anastomosis . very slow recovery. urinary retention 2ed BPH . poor intake with vomiting and ileus ( improving ). same PO care . DVT prophylaxis , OOB ,. physical Tx to ambulate , - Problem Patient Problems: Patient Problems Urinary tract infection (Acute) N39.0 Urinary obstruction (Acute) N13.9 S/P colon resection (Acute) Z90.49
[2019-10-01] MEDS: D5 1/2 NS 1000 ML 1,000 ML IV SCH ×3 (05:38→21:36)
[2019-10-01 06:18] LABS: BLOOD UREA NITROGEN 18 mg/dL (7-18); CALCIUM 7.6 mg/dL (8.5-10.1); CARBON DIOXIDE 28.2 mmol/L (21-32); CHLORIDE 101 mmol/L (98-107); COR NA(FOR HYPERGLY) 135 mmol/L (136-145); CREATININE 0.78 mg/dL (0.70-1.30); MAGNESIUM 1.9 mg/dL (1.7-2.9); SODIUM 135 mmol/L (136-145); eGFR NON BLACK RACES > 60 (>60)
[2019-10-01 06:22] LABS: BASOPHILS % (AUTO) 0.4 % (0.2-1.0); EOSINOPHILS # (AUTO) 0.3 x10^3/uL (0.0-0.2); HEMATOCRIT 30.7 % (42.0-54.0); HEMOGLOBIN 10.5 g/dL (13.5-18.0); LYMPHOCYTES % (AUTO) 22.4 % (21.0-51.0); MEAN CORPUSCULAR HEMOGLOBIN 30.7 pg (27.0-34.0); MEAN CORPUSCULAR HGB CONC 34.1 g/dL (33.0-35.0); MEAN CORPUSCULAR VOLUME 90.1 fL (80.0-100.0); MEAN PLATELET VOLUME 7.8 fL (7.4-11.0); MONOCYTES # (AUTO) 0.9 x10^3/uL (0.3-0.8); MONOCYTES % (AUTO) 9.9 % (0.0-13.0); NEUTROPHILS # (AUTO) 5.8 x10^3/uL (2.2-4.8); NEUTROPHILS % (AUTO) 64.3 % (42.0-75.0); PLATELET COUNT 323 X10^3/uL (150.0-450.0); RED BLOOD COUNT 3.41 X10^6/uL (4.7-6.0); RED CELL DISTRIBUTION WIDTH 14.4 % (11.6-16.5)
--- NOTE | 2019-10-01 08:46 | PCM.PROG ---
Progress Note Progress Note for Day of Date of Exam: 10/01/19 Subjective Subjective: Pt is an 84 yo m s/p rectal cancer resection, POD#8. His colostomy is functioning. UrineCx positive for E. coli, he will be continuing Keflex x 4 days. His WBC has trended down to wnl. He has catheter placed and has good urine output, penile edema minimal compared to before, will keep catheter in place, will need urology referral outpatient. CM working on swing bed/SNF placement. Past Medical Family Social History Past Med/Fam/Surg Hx: No changes since H&P Allergies: Allergies No Known Drug Allergies Allergy (Verified 07/24/19 21:32) Review of Systems ROS: No change since H&P Vital Signs and I&O's Vital Signs: Temperature 98.1 F Pulse Rate [Left Brachial] 82 Pulse Rate [Apical] 81 Pulse Rate 99 Respiratory Rate 16 Blood Pressure [Right Arm] 109/57 Blood Pressure [Left Arm] 110/49 Blood Pressure 136/65 O2 Sat by Pulse Oximetry 95 Intake and Output: Intake & Output 09/28/19 09/29/19 09/30/19 10/01/19 23:59 23:59 23:59 23:59 Intake Total 1470 / 1470 1550 / 1550 640 / 640 Output Total 1400 / 1400 1625 / 1625 2275 / 2275 1475 / 1475 Balance 70 / 70 -75 / -75 -1635 / -1635 -1475 / -1475 Physical Exam Oriented: Normal Eyes: Normal Nose: Normal Respiratory: Normal Cardiovascular: Normal : Other (has garcia in place, Penis edema) Auscultation: Bowel Sounds: Normal Tenderness: Normal and Other (soft abdomen , mild incisional tenderness . BS +. drain was removed ) Skin: Normal Musculoskeletal: Normal Psychiatric: Normal Mood Description: Calm Affect: Normal Speech Pattern: Clear and Appropriate Laboratory and Diagnostics Result Diagrams: 10/01/19 05:56 10/01/19 05:56 Labs: 09/29/19 08:20 Sputum - Expectorated Sputum Sputum Culture - Preliminary 09/29/19 08:20 Sputum - Expectorated Sputum - Final 09/28/19 09:00 Urine,Catheterized Urine Culture - Final Escherichia Coli Laboratory WBC 9.0 X10^3/uL (3.6-10.0) 10/01/19 05:56 RBC 3.41 X10^6/uL (4.7-6.0) L 10/01/19 05:56 Hgb 10.5 g/dL (13.5-18.0) L 10/01/19 05:56 Hct 30.7 % (42.0-54.0) L 10/01/19 05:56 MCV 90.1 fL (80.0-100.0) 10/01/19 05:56 MCH 30.7 pg (27.0-34.0) 10/01/19 05:56 MCHC 34.1 g/dL (33.0-35.0) 10/01/19 05:56 RDW 14.4 % (11.6-16.5) 10/01/19 05:56 Plt Count 323 X10^3/uL (150.0-450.0) 10/01/19 05:56 MPV 7.8 fL (7.4-11.0) 10/01/19 05:56 Neut % (Auto) 64.3 % (42.0-75.0) 10/01/19 05:56 Lymph % (Auto) 22.4 % (21.0-51.0) 10/01/19 05:56 [place] % (Auto) 9.9 % (0.0-13.0) 10/01/19 05:56 Eos % (Auto) 3.0 % (0.9-2.9) H 10/01/19 05:56 Baso % (Auto) 0.4 % (0.2-1.0) 10/01/19 05:56 Neut # (Auto) 5.8 x10^3/uL (2.2-4.8) H 10/01/19 05:56 Lymph # (Auto) 2.0 X10^3/uL (1.3-2.9) 10/01/19 05:56 [place] # (Auto) 0.9 x10^3/uL (0.3-0.8) H 10/01/19 05:56 Eos # (Auto) 0.3 x10^3/uL (0.0-0.2) H 10/01/19 05:56 Baso # (Auto) 0.0 X10^3/uL (0.0-0.1) 10/01/19 05:56 Absolute Nucleated RBC 0.0 /100WBC 10/01/19 05:56 Sodium 135 mmol/L (136-145) L 10/01/19 05:56 Corrected Sodium 135 mmol/L (136-145) L 10/01/19 05:56 Potassium 3.8 mmol/L (3.5-5.1) 10/01/19 05:56 Chloride 101 mmol/L (98-107) 10/01/19 05:56 Carbon Dioxide 28.2 mmol/L (21-32) 10/01/19 05:56 BUN 18 mg/dL (7-18) 10/01/19 05:56 Creatinine 0.78 mg/dL (0.70-1.30) 10/01/19 05:56 Est GFR (MDRD) Af Amer > 60 (>60) 10/01/19 05:56 Est GFR (MDRD) Non-Af > 60 (>60) 10/01/19 05:56 Glucose 115 mg/dL (65-99) H 10/01/19 05:56 Calcium 7.6 mg/dL (8.5-10.1) L 10/01/19 05:56 Corrected Calcium 9.4 mg/dL (8.5-10.1) 09/27/19 04:31 Phosphorus 2.8 mg/dL (2.6-4.7) 09/30/19 04:45 Magnesium 1.9 mg/dL (1.7-2.9) 10/01/19 05:56 Total Bilirubin 0.90 mg/dL (0.2-1.0) 09/27/19 04:31 AST 19 Units/L (15-37) 09/27/19 04:31 ALT 10 Units/L (12-78) L 09/27/19 04:31 Alkaline Phosphatase 64 Units/L (46-116) 09/27/19 04:31 Total Protein 5.5 g/dL (6.4-8.2) L 09/27/19 04:31 Albumin 2.1 g/dL (3.4-5.0) L 09/27/19 04:31 Globulin 3.4 g/dL (2.5-4.5) 09/27/19 04:31 Albumin/Globulin Ratio 0.6 Ratio (1.1-2.1) L 09/27/19 04:31 Specimen Type Catherized urine 09/28/19 09:00 Urine Color Yellow (YELLOW) 09/28/19 09:00 Urine Appearance Slightly hazy (CLEAR) 09/28/19 09:00 Urine pH 6.0 (5.0 - 8.0) 09/28/19 09:00 Ur Specific [place] 1.005 (1.000-1.030) 09/28/19 09:00 Urine Protein 2+ (NEGATIVE) 09/28/19 09:00 Urine Glucose (UA) Negative (NEGATIVE) 09/28/19 09:00 Urine Ketones Negative (NEGATIVE) 09/28/19 09:00 Urine Occult Blood 2+ (NEGATIVE) 09/28/19 09:00 Urine Nitrite Negative (NEGATIVE) 09/28/19 09:00 Urine Bilirubin Negative (NEGATIVE) 09/28/19 09:00 Urine Urobilinogen Normal (NORMAL) 09/28/19 09:00 Ur Leukocyte Esterase 2+ (NEGATIVE) 09/28/19 09:00 Urine RBC 5-10 /HPF (0-3) A 09/28/19 09:00 Urine WBC 5-10 /HPF (0-5) A 09/28/19 09:00 Ur Squamous Epith Cells Few /HPF (NEGATIVE) 09/28/19 09:00 Ur Transition Epith Cell Cancelled 09/23/19 11:40 Ur Renal Epithelial Cell Cancelled 09/23/19 11:40 Calcium Oxalate Crystal Cancelled 09/23/19 11:40 Cystine Crystals Cancelled 09/23/19 11:40 Uric Acid Crystals Cancelled 09/23/19 11:40 Triple Phos Crystals Cancelled 09/23/19 11:40 Tyrosine Crystals Cancelled 09/23/19 11:40 Other Crystals Cancelled 09/23/19 11:40 Amorphous Sediment Cancelled 09/23/19 11:40 Urine Bacteria Trace /HPF (NEGATIVE) 09/28/19 09:00 Hyaline Casts Cancelled 09/23/19 11:40 Granular Casts Cancelled 09/23/19 11:40 Fine Granular Casts Cancelled 09/23/19 11:40 Coarse Granular Casts Cancelled 09/23/19 11:40 RBC Casts Cancelled 09/23/19 11:40 Other Casts Cancelled 09/23/19 11:40 Urine Mucus Cancelled 09/23/19 11:40 Urine Trichomonas Cancelled 09/23/19 11:40 Urine Yeast Cancelled 09/23/19 11:40 Urine Sperm Cancelled 09/23/19 11:40 Ur Culture Indicated? Yes/culture set up 09/28/19 09:00 Gastric Fluid pH 3 09/26/19 22:50 Gastric Occult Blood Positive (NEGATIVE) A 09/26/19 22:50 Tissue Pathology To follow 09/23/19 14:25 Plan (1) S/P colon resection: Status: Acute Plan: Continue care as per Surgery, POD#8. Good UOP, colostomy functioning. (2) Urinary tract infection: Status: Acute Plan: UrineCx positive E. coli, Keflex x 4 days to complete course. (3) Urinary obstruction: Status: Acute Plan: Garcia placed, penile edema minimal Referral urology outpatient (4) Colonic mass: Status: Acute (5) Hypertension: Status: Chronic Qualifiers: Hypertension type: essential hypertension Qualified Code(s): I10 - Essential (primary) hypertension Plan: nifedipine (6) Hypothyroidism: Status: Chronic Qualifiers: Hypothyroidism type: unspecified Qualified Code(s): E03.9 - Hypothyroidism, unspecified Plan: resume levothyroxine
[2019-10-01] MEDS: PROTONIX INJ 40 MG VIAL IVP SCH (10:10)
[2019-10-01] MEDS: FLOMAX PO SCH (10:10)
[2019-10-01] MEDS: KEFLEX CAP 500 MG PO SCH ×2 (10:10→21:09)
[2019-10-01] MEDS: SYNTHROID 125 mcg TAB PO SCH (10:10)
[2019-10-01] MEDS: NYSTATIN SUSP PO SCH (10:10)
[2019-10-01] MEDS: PROCARDIA XL PO SCH (10:10)
[2019-10-01] MEDS: TAB-A-VITE PO SCH (10:10)
[2019-10-01] MEDS: LOVENOX INJ 40 MG SYR SC SCH (10:11)
[2019-10-01] MEDS: JUVEN PO SCH ×2 (10:11→21:09)
--- NOTE | 2019-10-01 16:04 | DR.PROGNOT ---
Hospital Progress Notes - Progress Note for Day of: Progress Note Date: 10/01/19 - Chief Complaint Chief Complaint: confused at times but alert , no distress. oral intake is still poor . garcia cath had to be re inserted. colostomy is functioning now . normal lytes and WBC. temp 98.1. colostomy is functioning well .. - Past Medical Family Social History Past Med/Fam/Surg Hx: No changes since H&P Allergies: Allergies No Known Drug Allergies Allergy (Verified 07/24/19 21:32) - Review Of Systems ROS: No change since H&P - Vital Signs Vital Signs: Temperature 98.1 F Pulse Rate [Left Brachial] 82 Pulse Rate [Apical] 81 Pulse Rate 99 Respiratory Rate 16 Blood Pressure [Right Arm] 109/57 Blood Pressure [Left Arm] 110/49 Blood Pressure 136/65 O2 Sat by Pulse Oximetry 95 - Physical Exam Oriented: Normal Eyes: Normal Nose: Normal Respiratory: Normal Cardiovascular: Normal : Other (has garcia in place, Penis edema) GI:Auscultation: Normal GI:Palpation: Normal GI: Tenderness: Normal, Other (soft abdomen , mild incisional tenderness . BS +. drain was removed) Skin: Normal Musculoskeletal: Normal Psychiatric: Normal Mood Description: Calm Affect: Normal Speech Pattern: Clear, Appropriate - Laboratory and Diagnostics Result Diagrams: 10/01/19 05:56 10/01/19 05:56 Labs: 09/29/19 08:20 Sputum - Expectorated Sputum Sputum Culture - Final Escherichia Coli 09/29/19 08:20 Sputum - Expectorated Sputum - Final 09/28/19 09:00 Urine,Catheterized Urine Culture - Final Escherichia Coli Laboratory WBC 9.0 X10^3/uL (3.6-10.0) 10/01/19 05:56 RBC 3.41 X10^6/uL (4.7-6.0) L 10/01/19 05:56 Hgb 10.5 g/dL (13.5-18.0) L 10/01/19 05:56 Hct 30.7 % (42.0-54.0) L 10/01/19 05:56 MCV 90.1 fL (80.0-100.0) 10/01/19 05:56 MCH 30.7 pg (27.0-34.0) 10/01/19 05:56 MCHC 34.1 g/dL (33.0-35.0) 10/01/19 05:56 RDW 14.4 % (11.6-16.5) 10/01/19 05:56 Plt Count 323 X10^3/uL (150.0-450.0) 10/01/19 05:56 MPV 7.8 fL (7.4-11.0) 10/01/19 05:56 Neut % (Auto) 64.3 % (42.0-75.0) 10/01/19 05:56 Lymph % (Auto) 22.4 % (21.0-51.0) 10/01/19 05:56 [place] % (Auto) 9.9 % (0.0-13.0) 10/01/19 05:56 Eos % (Auto) 3.0 % (0.9-2.9) H 10/01/19 05:56 Baso % (Auto) 0.4 % (0.2-1.0) 10/01/19 05:56 Neut # (Auto) 5.8 x10^3/uL (2.2-4.8) H 10/01/19 05:56 Lymph # (Auto) 2.0 X10^3/uL (1.3-2.9) 10/01/19 05:56 [place] # (Auto) 0.9 x10^3/uL (0.3-0.8) H 10/01/19 05:56 Eos # (Auto) 0.3 x10^3/uL (0.0-0.2) H 10/01/19 05:56 Baso # (Auto) 0.0 X10^3/uL (0.0-0.1) 10/01/19 05:56 Absolute Nucleated RBC 0.0 /100WBC 10/01/19 05:56 Sodium 135 mmol/L (136-145) L 10/01/19 05:56 Corrected Sodium 135 mmol/L (136-145) L 10/01/19 05:56 Potassium 3.8 mmol/L (3.5-5.1) 10/01/19 05:56 Chloride 101 mmol/L (98-107) 10/01/19 05:56 Carbon Dioxide 28.2 mmol/L (21-32) 10/01/19 05:56 BUN 18 mg/dL (7-18) 10/01/19 05:56 Creatinine 0.78 mg/dL (0.70-1.30) 10/01/19 05:56 Est GFR (MDRD) Af Amer > 60 (>60) 10/01/19 05:56 Est GFR (MDRD) Non-Af > 60 (>60) 10/01/19 05:56 Glucose 115 mg/dL (65-99) H 10/01/19 05:56 Calcium 7.6 mg/dL (8.5-10.1) L 10/01/19 05:56 Corrected Calcium 9.4 mg/dL (8.5-10.1) 09/27/19 04:31 Phosphorus 2.8 mg/dL (2.6-4.7) 09/30/19 04:45 Magnesium 1.9 mg/dL (1.7-2.9) 10/01/19 05:56 Total Bilirubin 0.90 mg/dL (0.2-1.0) 09/27/19 04:31 AST 19 Units/L (15-37) 09/27/19 04:31 ALT 10 Units/L (12-78) L 09/27/19 04:31 Alkaline Phosphatase 64 Units/L (46-116) 09/27/19 04:31 Total Protein 5.5 g/dL (6.4-8.2) L 09/27/19 04:31 Albumin 2.1 g/dL (3.4-5.0) L 09/27/19 04:31 Globulin 3.4 g/dL (2.5-4.5) 09/27/19 04:31 Albumin/Globulin Ratio 0.6 Ratio (1.1-2.1) L 09/27/19 04:31 Specimen Type Catherized urine 09/28/19 09:00 Urine Color Yellow (YELLOW) 09/28/19 09:00 Urine Appearance Slightly hazy (CLEAR) 09/28/19 09:00 Urine pH 6.0 (5.0 - 8.0) 09/28/19 09:00 Ur Specific [place] 1.005 (1.000-1.030) 09/28/19 09:00 Urine Protein 2+ (NEGATIVE) 09/28/19 09:00 Urine Glucose (UA) Negative (NEGATIVE) 09/28/19 09:00 Urine Ketones Negative (NEGATIVE) 09/28/19 09:00 Urine Occult Blood 2+ (NEGATIVE) 09/28/19 09:00 Urine Nitrite Negative (NEGATIVE) 09/28/19 09:00 Urine Bilirubin Negative (NEGATIVE) 09/28/19 09:00 Urine Urobilinogen Normal (NORMAL) 09/28/19 09:00 Ur Leukocyte Esterase 2+ (NEGATIVE) 09/28/19 09:00 Urine RBC 5-10 /HPF (0-3) A 09/28/19 09:00 Urine WBC 5-10 /HPF (0-5) A 09/28/19 09:00 Ur Squamous Epith Cells Few /HPF (NEGATIVE) 09/28/19 09:00 Ur Transition Epith Cell Cancelled 09/23/19 11:40 Ur Renal Epithelial Cell Cancelled 09/23/19 11:40 Calcium Oxalate Crystal Cancelled 09/23/19 11:40 Cystine Crystals Cancelled 09/23/19 11:40 Uric Acid Crystals Cancelled 09/23/19 11:40 Triple Phos Crystals Cancelled 09/23/19 11:40 Tyrosine Crystals Cancelled 09/23/19 11:40 Other Crystals Cancelled 09/23/19 11:40 Amorphous Sediment Cancelled 09/23/19 11:40 Urine Bacteria Trace /HPF (NEGATIVE) 09/28/19 09:00 Hyaline Casts Cancelled 09/23/19 11:40 Granular Casts Cancelled 09/23/19 11:40 Fine Granular Casts Cancelled 09/23/19 11:40 Coarse Granular Casts Cancelled 09/23/19 11:40 RBC Casts Cancelled 09/23/19 11:40 Other Casts Cancelled 09/23/19 11:40 Urine Mucus Cancelled 09/23/19 11:40 Urine Trichomonas Cancelled 09/23/19 11:40 Urine Yeast Cancelled 09/23/19 11:40 Urine Sperm Cancelled 09/23/19 11:40 Ur Culture Indicated? Yes/culture set up 09/28/19 09:00 Gastric Fluid pH 3 09/26/19 22:50 Gastric Occult Blood Positive (NEGATIVE) A 09/26/19 22:50 Tissue Pathology To follow 09/23/19 14:25 - Assessment and Plan 1: rectal ca . s/p resection with primary anastomosis . very slow recovery. urinary retention 2nd BPH . poor intake. same PO care . DVT prophylaxis , OOB ,. physical Tx and to arrange for short term placement . - Problem Patient Problems: Patient Problems Urinary tract infection (Acute) N39.0 Urinary obstruction (Acute) N13.9 S/P colon resection (Acute) Z90.49
[2019-10-02] MEDS: D5 1/2 NS 1000 ML 1,000 ML IV SCH ×2 (04:20→11:07)
[2019-10-02 05:46] LABS: BASOPHILS % (AUTO) 0.3 % (0.2-1.0); EOSINOPHILS # (AUTO) 0.2 x10^3/uL (0.0-0.2); EOSINOPHILS % (AUTO) 1.7 % (0.9-2.9); HEMATOCRIT 28.8 % (42.0-54.0); HEMOGLOBIN 9.8 g/dL (13.5-18.0); LYMPHOCYTES # (AUTO) 2.5 X10^3/uL (1.3-2.9); LYMPHOCYTES % (AUTO) 23.1 % (21.0-51.0); MEAN CORPUSCULAR HGB CONC 34.1 g/dL (33.0-35.0); MEAN CORPUSCULAR VOLUME 90.8 fL (80.0-100.0); MEAN PLATELET VOLUME 8.1 fL (7.4-11.0); MONOCYTES # (AUTO) 0.8 x10^3/uL (0.3-0.8); MONOCYTES % (AUTO) 7.7 % (0.0-13.0); NEUTROPHILS # (AUTO) 7.3 x10^3/uL (2.2-4.8); NEUTROPHILS % (AUTO) 67.2 % (42.0-75.0); PLATELET COUNT 382 X10^3/uL (150.0-450.0); RED BLOOD COUNT 3.17 X10^6/uL (4.7-6.0); RED CELL DISTRIBUTION WIDTH 14.4 % (11.6-16.5); WHITE BLOOD COUNT 10.8 X10^3/uL (3.6-10.0)
[2019-10-02 05:54] LABS: BLOOD UREA NITROGEN 16 mg/dL (7-18); CALCIUM 7.4 mg/dL (8.5-10.1); CARBON DIOXIDE 28.6 mmol/L (21-32); CHLORIDE 103 mmol/L (98-107); CREATININE 0.74 mg/dL (0.70-1.30); MAGNESIUM 1.8 mg/dL (1.7-2.9); SODIUM 136 mmol/L (136-145); eGFR NON BLACK RACES > 60 (>60)
[2019-10-02] MEDS: MAGNESIUM SULFATE 1 GRAM/100 mL PREMIX 1 GM/100 ML BAG IV PRN ×2 (09:30→11:07)
[2019-10-02] MEDS: KEFLEX CAP 500 MG PO SCH (09:34)
[2019-10-02] MEDS: TAB-A-VITE PO SCH (09:34)
[2019-10-02] MEDS: SYNTHROID 125 mcg TAB PO SCH (09:34)
[2019-10-02] MEDS: PROCARDIA XL PO SCH (09:34)
[2019-10-02] MEDS: FLOMAX PO SCH (09:34)
[2019-10-02] MEDS: PROTONIX INJ 40 MG VIAL IVP SCH (09:40)
[2019-10-02] MEDS: LOVENOX INJ 40 MG SYR SC SCH (09:41)
[2019-10-02] MEDS: JUVEN PO SCH (09:48)
[2019-10-02 11:30] VITALS: BP 91/52
--- NOTE | 2019-10-02 13:45 | W.DIS.FURT ---
Summary of Discharge Discharge Summary of Date Date of Exam: 10/02/19 Admission Date Date of Admission: 09/23/19 Admission Diagnosis Hospital Course: Pt is an 84 yo m s/p rectal cancer resection, discharged to SNF for physical rehab. On day of discharge his colostomy is functioning, his vitals stable, and physical exam unremarkable. His hospital course was complicated by urinary obstruction that required catheter placement and UrineCx positive for E. coli. He responded well to antibiotics and will be continuing Keflex x 4 days to complete course. He will be scheduled for follow up with urology outpatient for catheter removal and post-op follow up with Surgery. Vital Signs: Vital Signs (72 hours) 09/29/19 16:00 09/29/19 20:00 09/30/19 00:00 Temperature 97.6 F 98.2 F 98.8 F Pulse Rate [Left Brachial] 95 H 98 H 84 Respiratory Rate 18 20 20 Blood Pressure [Left Arm] 113/53 122/56 116/54 O2 Sat by Pulse Oximetry 97 96 97 09/30/19 04:00 09/30/19 08:00 09/30/19 12:00 Temperature 98.5 F 98.3 F 97.8 F Pulse Rate [Left Brachial] 73 99 H 93 H Respiratory Rate 20 18 20 Blood Pressure [Left Arm] 116/69 119/63 120/72 O2 Sat by Pulse Oximetry 97 95 93 L 09/30/19 16:00 09/30/19 20:00 10/01/19 00:00 Temperature 98.0 F 97.6 F 98.1 F Pulse Rate [Left Brachial] 71 89 83 Respiratory Rate 20 18 18 Blood Pressure [Left Arm] 119/56 132/60 129/56 O2 Sat by Pulse Oximetry 95 95 98 10/01/19 03:59 10/01/19 08:00 10/01/19 12:00 Temperature 98.1 F 98.1 F 97.8 F Pulse Rate [Left Brachial] 82 88 90 Respiratory Rate 16 18 20 Blood Pressure [Left Arm] 110/49 157/67 112/47 O2 Sat by Pulse Oximetry 95 96 94 L 10/01/19 16:00 10/01/19 20:00 10/02/19 00:00 Temperature 97.7 F 97.9 F 99.7 F H Pulse Rate [Left Brachial] 80 77 92 H Respiratory Rate 18 18 20 Blood Pressure [Left Arm] 114/63 122/61 117/58 O2 Sat by Pulse Oximetry 97 95 95 10/02/19 04:00 10/02/19 08:00 10/02/19 11:29 Temperature 98.6 F 98.6 F 97.9 F Pulse Rate [Left Brachial] 83 77 77 Respiratory Rate 22 19 18 Blood Pressure [Left Arm] 117/53 117/55 91/52 O2 Sat by Pulse Oximetry 94 L 95 97 Labs: Laboratory Last Values WBC 10.8 X10^3/uL (3.6-10.0) H 10/02/19 05:08 RBC 3.17 X10^6/uL (4.7-6.0) L 10/02/19 05:08 Hgb 9.8 g/dL (13.5-18.0) L 10/02/19 05:08 Hct 28.8 % (42.0-54.0) L 10/02/19 05:08 MCV 90.8 fL (80.0-100.0) 10/02/19 05:08 MCH 31.0 pg (27.0-34.0) 10/02/19 05:08 MCHC 34.1 g/dL (33.0-35.0) 10/02/19 05:08 RDW 14.4 % (11.6-16.5) 10/02/19 05:08 Plt Count 382 X10^3/uL (150.0-450.0) 10/02/19 05:08 MPV 8.1 fL (7.4-11.0) 10/02/19 05:08 Neut % (Auto) 67.2 % (42.0-75.0) 10/02/19 05:08 Lymph % (Auto) 23.1 % (21.0-51.0) 10/02/19 05:08 [place] % (Auto) 7.7 % (0.0-13.0) 10/02/19 05:08 Eos % (Auto) 1.7 % (0.9-2.9) 10/02/19 05:08 Baso % (Auto) 0.3 % (0.2-1.0) 10/02/19 05:08 Neut # (Auto) 7.3 x10^3/uL (2.2-4.8) H 10/02/19 05:08 Lymph # (Auto) 2.5 X10^3/uL (1.3-2.9) 10/02/19 05:08 [place] # (Auto) 0.8 x10^3/uL (0.3-0.8) 10/02/19 05:08 Eos # (Auto) 0.2 x10^3/uL (0.0-0.2) 10/02/19 05:08 Baso # (Auto) 0.0 X10^3/uL (0.0-0.1) 10/02/19 05:08 Absolute Nucleated RBC 0.0 /100WBC 10/02/19 05:08 Sodium 136 mmol/L (136-145) 10/02/19 05:08 Corrected Sodium TNP 10/02/19 05:08 Potassium 3.8 mmol/L (3.5-5.1) 10/02/19 05:08 Chloride 103 mmol/L (98-107) 10/02/19 05:08 Carbon Dioxide 28.6 mmol/L (21-32) 10/02/19 05:08 BUN 16 mg/dL (7-18) 10/02/19 05:08 Creatinine 0.74 mg/dL (0.70-1.30) 10/02/19 05:08 Est GFR (MDRD) Af Amer > 60 (>60) 10/02/19 05:08 Est GFR (MDRD) Non-Af > 60 (>60) 10/02/19 05:08 Glucose 104 mg/dL (65-99) H 10/02/19 05:08 Calcium 7.4 mg/dL (8.5-10.1) L 10/02/19 05:08 Corrected Calcium 9.4 mg/dL (8.5-10.1) 09/27/19 04:31 Phosphorus 2.8 mg/dL (2.6-4.7) 09/30/19 04:45 Magnesium 1.8 mg/dL (1.7-2.9) 10/02/19 05:08 Total Bilirubin 0.90 mg/dL (0.2-1.0) 09/27/19 04:31 AST 19 Units/L (15-37) 09/27/19 04:31 ALT 10 Units/L (12-78) L 09/27/19 04:31 Alkaline Phosphatase 64 Units/L (46-116) 09/27/19 04:31 Total Protein 5.5 g/dL (6.4-8.2) L 09/27/19 04:31 Albumin 2.1 g/dL (3.4-5.0) L 09/27/19 04:31 Globulin 3.4 g/dL (2.5-4.5) 09/27/19 04:31 Albumin/Globulin Ratio 0.6 Ratio (1.1-2.1) L 09/27/19 04:31 Specimen Type Catherized urine 09/28/19 09:00 Urine Color Yellow (YELLOW) 09/28/19 09:00 Urine Appearance Slightly hazy (CLEAR) 09/28/19 09:00 Urine pH 6.0 (5.0 - 8.0) 09/28/19 09:00 Ur Specific [place] 1.005 (1.000-1.030) 09/28/19 09:00 Urine Protein 2+ (NEGATIVE) 09/28/19 09:00 Urine Glucose (UA) Negative (NEGATIVE) 09/28/19 09:00 Urine Ketones Negative (NEGATIVE) 09/28/19 09:00 Urine Occult Blood 2+ (NEGATIVE) 09/28/19 09:00 Urine Nitrite Negative (NEGATIVE) 09/28/19 09:00 Urine Bilirubin Negative (NEGATIVE) 09/28/19 09:00 Urine Urobilinogen Normal (NORMAL) 09/28/19 09:00 Ur Leukocyte Esterase 2+ (NEGATIVE) 09/28/19 09:00 Urine RBC 5-10 /HPF (0-3) A 09/28/19 09:00 Urine WBC 5-10 /HPF (0-5) A 09/28/19 09:00 Ur Squamous Epith Cells Few /HPF (NEGATIVE) 09/28/19 09:00 Ur Transition Epith Cell Cancelled 09/23/19 11:40 Ur Renal Epithelial Cell Cancelled 09/23/19 11:40 Calcium Oxalate Crystal Cancelled 09/23/19 11:40 Cystine Crystals Cancelled 09/23/19 11:40 Uric Acid Crystals Cancelled 09/23/19 11:40 Triple Phos Crystals Cancelled 09/23/19 11:40 Tyrosine Crystals Cancelled 09/23/19 11:40 Other Crystals Cancelled 09/23/19 11:40 Amorphous Sediment Cancelled 09/23/19 11:40 Urine Bacteria Trace /HPF (NEGATIVE) 09/28/19 09:00 Hyaline Casts Cancelled 09/23/19 11:40 Granular Casts Cancelled 09/23/19 11:40 Fine Granular Casts Cancelled 09/23/19 11:40 Coarse Granular Casts Cancelled 09/23/19 11:40 RBC Casts Cancelled 09/23/19 11:40 Other Casts Cancelled 09/23/19 11:40 Urine Mucus Cancelled 09/23/19 11:40 Urine Trichomonas Cancelled 09/23/19 11:40 Urine Yeast Cancelled 09/23/19 11:40 Urine Sperm Cancelled 09/23/19 11:40 Ur Culture Indicated? Yes/culture set up 09/28/19 09:00 Gastric Fluid pH 3 09/26/19 22:50 Gastric Occult Blood Positive (NEGATIVE) A 09/26/19 22:50 Tissue Pathology To follow 09/23/19 14:25 Reason For Visit: EXPLORATORY LAP ANTERIOR RESECTION OF RECTUM Discharge Date Discharge Date: 10/02/19 Discharge Diagnosis All Active Problems (Updated 09/28/19 @ 09:36 by Gabe Angel) Urinary tract infection (Acute) Urinary obstruction (Acute) S/P colon resection (Acute) Colonic mass (Acute) Colostomy status (Acute) Gout (Chronic) Hypertension (Chronic) Hypothyroidism (Chronic) Bowel obstruction (Acute) Plan of Treatment: Continue with present treatment and follow up plan. Pt is to keep follow up ethel ointment as instructed and take medications as ordered. Discharge Medications Discharge Medications: No Known Drug Allergies Allergy (Verified 07/24/19 21:32) New Prescriptions [id number] [Diony (with collagen)] 1 celia PO BID 30 Days #30 ea 10/02/19 [Rx] cephalexin 500 mg PO BID 5 Days #10 cap 10/02/19 [Rx] multivitamin [Tab-A-Jeremias] 1 tab PO DAILY #30 tab 10/02/19 [Rx] pantoprazole [Protonix] 40 mg PO DAILY 30 Days #30 tab 10/02/19 [Rx] tamsulosin 0.4 mg PO DAILY 30 Days #30 cap 10/02/19 [Rx] Discharge Disposition Discharge Disposition:
== END 2019-10-02 14:23 | disposition home or self-care (01) | DRG 333 ==
LOC: SURG1 08:14 → MED/SURG 08:21 → EDSTATUS 09:15 → ICU 10:42 → MED/SURG 09-26 17:37
PROVIDERS: ADMIT Surgery; ATTEND Family Medicine
CPT/HCPCS: 36415; 80048; 80053; 81001; 81003; 82271; 83735; 84100; 84132; 85025; 87070; 87077; 87086; 87088; 87186; 87205; 94669; 97112; 97116; 97163; 97530; 99100; A4216; A4222; C9113; J3490; S0030; J0330; J0690; J0696; J1170; J1650; J1940; J1956; J2405; J2704; J3010; J3475; J3480; J7050; J7120; S5010

== ENCOUNTER 2020-03-10 09:37 | Inpatient (IN) ==
[2020-03-10 12:30] LABS: BASOPHILS # (AUTO) 0.1 X10^3/uL (0.0-0.1); BASOPHILS % (AUTO) 1.5 % (0.2-1.0); EOSINOPHILS # (AUTO) 0.3 x10^3/uL (0.0-0.2); EOSINOPHILS % (AUTO) 3.7 % (0.9-2.9); HEMATOCRIT 34.7 % (42.0-54.0); HEMOGLOBIN 11.2 g/dL (13.5-18.0); LYMPHOCYTES # (AUTO) 2.7 X10^3/uL (1.3-2.9); LYMPHOCYTES % (AUTO) 29.3 % (21.0-51.0); MEAN CORPUSCULAR HEMOGLOBIN 26.9 pg (27.0-34.0); MEAN CORPUSCULAR HGB CONC 32.3 g/dL (33.0-35.0); MEAN CORPUSCULAR VOLUME 83.3 fL (80.0-100.0); MEAN PLATELET VOLUME 8.7 fL (7.4-11.0); MONOCYTES # (AUTO) 0.8 x10^3/uL (0.3-0.8); MONOCYTES % (AUTO) 8.9 % (0.0-13.0); NEUTROPHILS # (AUTO) 5.3 x10^3/uL (2.2-4.8); NEUTROPHILS % (AUTO) 56.6 % (42.0-75.0); PLATELET COUNT 203 X10^3/uL (150.0-450.0); RED BLOOD COUNT 4.17 X10^6/uL (4.7-6.0); RED CELL DISTRIBUTION WIDTH 17.2 % (11.6-16.5); WHITE BLOOD COUNT 9.3 X10^3/uL (3.6-10.0)
--- NOTE | 2020-03-10 12:41 | RAD ---
HISTORYCHEST PAINSTUDYCHEST x-ray, 1 VIEWCOMPARISONX-ray 12/05/2019FINDINGSThe trachea is midline. The cardiac silhouette is likely normal in size.Probable COPD changes are seen. Soft tissue densities from the chest wall are seen overlying the lower lungs, similar to prior study. No suspicious infiltrate or nodule is seen in the lungs. No pneumothorax or pleural effusion is seen.No acute bony abnormality is seen.IMPRESSIONCOPD changes. No acute cardiopulmonary abnormality is seen.Electronically signed by: Adrian Caldera (Mar 10, 2020 12:40:14)
[2020-03-10 12:44] LABS: BLOOD UREA NITROGEN 13 mg/dL (7-18); CALCIUM 8.9 mg/dL (8.5-10.1); CARBON DIOXIDE 29.8 mmol/L (21-32); CHLORIDE 105 mmol/L (98-107); COR NA(FOR HYPERGLY) 140 mmol/L (136-145); CREATININE 1.11 mg/dL (0.70-1.30); SODIUM 140 mmol/L (136-145); eGFR NON BLACK RACES > 60 (>60)
--- NOTE | 2020-03-10 12:49 | DR.H&P ---
H&P History & Physical for Day of: H&P Date: 03/10/20 Chief Complaint Chief Complaint: Prolapse colostomy Allergies Allergies Allergy/AdvReac Type Severity Reaction Status Date / Time No Known Drug Allergies Allergy Verified 07/24/19 21:32 History of Present Illness History of Present Illness: Pt is a 85 yo m pmhx post colostomy, rectal cancer, HTN, Hypothyroidism, admitted for prolapsed colostomy with obstruction. He was direct admit from clinic. He reports it has become larger and is getting worse. Reports frequent constipation, occasional bleeding. Denies chest pain, shortness of breath, abdominal pain, nausea, vomiting. Will start patient on CLD, get labs/imaging, start home medications, consult general surgery for further evaluation. Continue to monitor and follow up recommendations and labs. Past Medical History Past Medical History: Gout, Hypertension and Hypothyroidism Past Surgical History Surgical History: Appendectomy, Bowel Resection and Ortho Surgery Medications Home Medications: No Known Drug Allergies Allergy (Verified 07/24/19 21:32) Labs Result Diagrams: 03/10/20 12:06 03/10/20 12:06 Labs: Laboratory WBC 9.3 X10^3/uL (3.6-10.0) 03/10/20 12:06 RBC 4.17 X10^6/uL (4.7-6.0) L 03/10/20 12:06 Hgb 11.2 g/dL (13.5-18.0) L 03/10/20 12:06 Hct 34.7 % (42.0-54.0) L 03/10/20 12:06 MCV 83.3 fL (80.0-100.0) 03/10/20 12:06 MCH 26.9 pg (27.0-34.0) L 03/10/20 12:06 MCHC 32.3 g/dL (33.0-35.0) L 03/10/20 12:06 RDW 17.2 % (11.6-16.5) H 03/10/20 12:06 Plt Count 203 X10^3/uL (150.0-450.0) 03/10/20 12:06 MPV 8.7 fL (7.4-11.0) 03/10/20 12:06 Neut % (Auto) 56.6 % (42.0-75.0) 03/10/20 12:06 Lymph % (Auto) 29.3 % (21.0-51.0) 03/10/20 12:06 [place] % (Auto) 8.9 % (0.0-13.0) 03/10/20 12:06 Eos % (Auto) 3.7 % (0.9-2.9) H 03/10/20 12:06 Baso % (Auto) 1.5 % (0.2-1.0) H 03/10/20 12:06 Neut # (Auto) 5.3 x10^3/uL (2.2-4.8) H 03/10/20 12:06 Lymph # (Auto) 2.7 X10^3/uL (1.3-2.9) 03/10/20 12:06 [place] # (Auto) 0.8 x10^3/uL (0.3-0.8) 03/10/20 12:06 Eos # (Auto) 0.3 x10^3/uL (0.0-0.2) H 03/10/20 12:06 Baso # (Auto) 0.1 X10^3/uL (0.0-0.1) 03/10/20 12:06 Absolute Nucleated RBC 0.0 /100WBC 03/10/20 12:06 Review of Systems Constitutional: denies Fever and Chills Eyes: No Symptoms Reported ENT: No Symptoms Reported Respiratory: No Symptoms Reported Cardiovascular: No Symptoms Reported Gastrointestinal: Constipation; denies Nausea, Vomiting, Abdominal Pain and Diarrhea Genitourinary: No Symptoms Reported Musculoskeletal: No Symptoms Reported Skin: No Symptoms Reported Neurological: No Symptoms Reported Physical Exam Vital Signs: Blood Pressure [Right Arm] 109/57 Blood Pressure [Left Arm] 91/52 Oriented: Normal Eyes: Normal Ear: Normal Nose: Normal Throat: Normal Respiratory: Clear Throughout Cardiovascular: Normal : Normal Auscultation: Bowel Sounds: Normal Palpation: Normal Tenderness: Normal Skin: Other (Prolapsed colostomy noted ) Musculoskeletal: Normal Psychiatric: Normal Mood Description: Calm Speech Pattern: Clear Assessment/Plan (1) Colostomy prolapse: Status: Acute Plan: Will consult surgery for further evaluation. F/u recs. (2) Hypertension: Qualifiers: Hypertension type: essential hypertension Qualified Code(s): I10 - Essential (primary) hypertension Status: Chronic Plan: Continue home meds (3) Hypothyroidism: Qualifiers: Hypothyroidism type: unspecified Qualified Code(s): E03.9 - Hypothyroidism, unspecified Status: Chronic Plan: Continue home meds Review H&P Reviewed: Yes Patient was examined?: Yes
[2020-03-10] MEDS ORDERED: NEOSTIGMINE INJ ONE (13:22)
[2020-03-10] MEDS ORDERED: EPHEDRINE SULFATE INJ ONE (13:22)
[2020-03-10] MEDS ORDERED: ROBINUL ONE (13:22)
[2020-03-10] MEDS ORDERED: QUELICIN (OR ANECTINE) ONE (13:22)
[2020-03-10] MEDS ORDERED: NORCURON INJ 10 MG VIAL ONE (13:22)
[2020-03-10] MEDS ORDERED: VERSED ONE (13:22)
[2020-03-10] MEDS ORDERED: XYLOCAINE 2 % (PLAIN) ONE (13:22)
[2020-03-10] MEDS ORDERED: NEO-SYNEPHRINE INJ ONE (13:22)
[2020-03-10] MEDS ORDERED: SUPRANE ONE (13:22)
[2020-03-10] MEDS ORDERED: LTA KIT LIDOCAINE 4% ONE (13:22)
[2020-03-10] MEDS ORDERED: NULYTELY or GO-LYTELY PO SCH (16:00)
[2020-03-10] MEDS: NORVASC TAB 10 MG PO SCH (17:21)
[2020-03-11 06:24] LABS: BASOPHILS # (AUTO) 0.1 X10^3/uL (0.0-0.1); BASOPHILS % (AUTO) 1.1 % (0.2-1.0); EOSINOPHILS # (AUTO) 0.4 x10^3/uL (0.0-0.2); EOSINOPHILS % (AUTO) 3.7 % (0.9-2.9); HEMATOCRIT 39.8 % (42.0-54.0); HEMOGLOBIN 12.7 g/dL (13.5-18.0); LYMPHOCYTES # (AUTO) 3.2 X10^3/uL (1.3-2.9); LYMPHOCYTES % (AUTO) 31.9 % (21.0-51.0); MEAN CORPUSCULAR HEMOGLOBIN 26.9 pg (27.0-34.0); MEAN CORPUSCULAR VOLUME 84.3 fL (80.0-100.0); MEAN PLATELET VOLUME 9.1 fL (7.4-11.0); MONOCYTES % (AUTO) 9.8 % (0.0-13.0); NEUTROPHILS # (AUTO) 5.4 x10^3/uL (2.2-4.8); NEUTROPHILS % (AUTO) 53.5 % (42.0-75.0); PLATELET COUNT 248 X10^3/uL (150.0-450.0); RED BLOOD COUNT 4.72 X10^6/uL (4.7-6.0); RED CELL DISTRIBUTION WIDTH 17.1 % (11.6-16.5)
[2020-03-11 06:27] LABS: ALANINE AMINOTRANSFERASE 16 Units/L (12-78); ALBUMIN 3.8 g/dL (3.4-5.0); ALKALINE PHOSPHATASE 116 Units/L (46-116); ASPARTATE AMINO TRANSFERASE 21 Units/L (15-37); BLOOD UREA NITROGEN 11 mg/dL (7-18); CALCIUM 9.2 mg/dL (8.5-10.1); CARBON DIOXIDE 26.7 mmol/L (21-32); CHLORIDE 102 mmol/L (98-107); COR NA(FOR HYPERGLY) 139 mmol/L (136-145); SODIUM 138 mmol/L (136-145); TOTAL PROTEIN 8.1 g/dL (6.4-8.2); eGFR NON BLACK RACES > 60 (>60)
[2020-03-11] MEDS: PROCARDIA XL PO SCH (09:14)
[2020-03-11] MEDS: SYNTHROID 125 mcg TAB PO SCH (09:14)
[2020-03-11] MEDS: NORVASC TAB 10 MG PO SCH (09:14)
[2020-03-11 10:15] VITALS: BMI 27.8
[2020-03-11] MEDS ORDERED: DIPRIVAN VIAL 20 ML ONE (10:55)
[2020-03-11] MEDS ORDERED: NS 1000 ML 1,000 ML ONE (10:58)
[2020-03-11] MEDS ORDERED: EPHEDRINE SULFATE INJ ONE (11:15)
--- NOTE | 2020-03-11 12:11 | PCM.PROG ---
Progress Note Progress Note for Day of Date of Exam: 03/11/20 Subjective Subjective: Pt is a 85 yo m pmhx post colostomy, rectal cancer, HTN, Hypothyroidism, admitted for prolapsed colostomy with obstruction. Today he laying in the bed comfortably. Labs/imaging: Wbc 10, Hgb 12.7, Plt 248, Na 138, K 3.1, Cr 1.10, Gluc 135, CXR:COPD changes, Ekg NSR. He is on CLD. Surgery eval uated patient with plan to evaluate rectal anastomosis before repairing prolapse and closing colostomy. K low today, will replete. Continue to monitor and follow up recommendations and labs. Past Medical Family Social History Past Med/Fam/Surg Hx: No changes since H&P Allergies: Allergies No Known Drug Allergies Allergy (Verified 03/10/20 13:14) Review of Systems ROS: No change since H&P Vital Signs and I&O's Vital Signs: Temperature 97.5 F Pulse Rate [Left Brachial] 86 Respiratory Rate 20 Blood Pressure [Right Arm] 149/62 Blood Pressure [Left Arm] 157/74 O2 Sat by Pulse Oximetry 95 Intake and Output: Intake & Output 03/08/20 03/09/20 03/10/20 03/11/20 23:59 23:59 23:59 23:59 Intake Total 920 / 920 150 / 150 Output Total 450 / 450 Balance 470 / 470 150 / 150 Physical Exam Oriented: Normal Eyes: Normal Ear: Normal Nose: Normal Throat: Normal Respiratory: Normal Cardiovascular: Normal : Normal Auscultation: Bowel Sounds: Normal Tenderness: Normal Skin: Other (Prolapsed colostomy noted ) Musculoskeletal: Normal Psychiatric: Normal Mood Description: Calm Speech Pattern: Clear and Appropriate Laboratory and Diagnostics Result Diagrams: 03/11/20 05:45 03/11/20 05:45 Labs: Laboratory WBC 10.0 X10^3/uL (3.6-10.0) 03/11/20 05:45 RBC 4.72 X10^6/uL (4.7-6.0) 03/11/20 05:45 Hgb 12.7 g/dL (13.5-18.0) L 03/11/20 05:45 Hct 39.8 % (42.0-54.0) L 03/11/20 05:45 MCV 84.3 fL (80.0-100.0) 03/11/20 05:45 MCH 26.9 pg (27.0-34.0) L 03/11/20 05:45 MCHC 32.0 g/dL (33.0-35.0) L 03/11/20 05:45 RDW 17.1 % (11.6-16.5) H 03/11/20 05:45 Plt Count 248 X10^3/uL (150.0-450.0) 03/11/20 05:45 MPV 9.1 fL (7.4-11.0) 03/11/20 05:45 Neut % (Auto) 53.5 % (42.0-75.0) 03/11/20 05:45 Lymph % (Auto) 31.9 % (21.0-51.0) 03/11/20 05:45 [place] % (Auto) 9.8 % (0.0-13.0) 03/11/20 05:45 Eos % (Auto) 3.7 % (0.9-2.9) H 03/11/20 05:45 Baso % (Auto) 1.1 % (0.2-1.0) H 03/11/20 05:45 Neut # (Auto) 5.4 x10^3/uL (2.2-4.8) H 03/11/20 05:45 Lymph # (Auto) 3.2 X10^3/uL (1.3-2.9) H 03/11/20 05:45 [place] # (Auto) 1.0 x10^3/uL (0.3-0.8) H 03/11/20 05:45 Eos # (Auto) 0.4 x10^3/uL (0.0-0.2) H 03/11/20 05:45 Baso # (Auto) 0.1 X10^3/uL (0.0-0.1) 03/11/20 05:45 Absolute Nucleated RBC 0.1 /100WBC 03/11/20 05:45 Sodium 138 mmol/L (136-145) 03/11/20 05:45 Corrected Sodium 139 mmol/L (136-145) 03/11/20 05:45 Potassium 3.1 mmol/L (3.5-5.1) L 03/11/20 05:45 Chloride 102 mmol/L (98-107) 03/11/20 05:45 Carbon Dioxide 26.7 mmol/L (21-32) 03/11/20 05:45 BUN 11 mg/dL (7-18) 03/11/20 05:45 Creatinine 1.10 mg/dL (0.70-1.30) 03/11/20 05:45 Est GFR (MDRD) Af Amer > 60 (>60) 03/11/20 05:45 Est GFR (MDRD) Non-Af > 60 (>60) 03/11/20 05:45 Glucose 135 mg/dL (65-99) H 03/11/20 05:45 Calcium 9.2 mg/dL (8.5-10.1) 03/11/20 05:45 Corrected Calcium TNP 03/11/20 05:45 Total Bilirubin 1.20 mg/dL (0.2-1.0) H 03/11/20 05:45 AST 21 Units/L (15-37) 03/11/20 05:45 ALT 16 Units/L (12-78) 03/11/20 05:45 Alkaline Phosphatase 116 Units/L (46-116) 03/11/20 05:45 Total Protein 8.1 g/dL (6.4-8.2) 03/11/20 05:45 Albumin 3.8 g/dL (3.4-5.0) 03/11/20 05:45 Globulin 4.3 g/dL (2.5-4.5) 03/11/20 05:45 Albumin/Globulin Ratio 0.9 Ratio (1.1-2.1) L 03/11/20 05:45 Tissue Pathology To follow 03/11/20 11:13 Plan (1) Colostomy prolapse: Status: Acute Plan: Surgery to evaluate rectal anastomosis before repairing prolapse and closing colostomy. (2) Hypertension: Status: Chronic Qualifiers: Hypertension type: essential hypertension Qualified Code(s): I10 - Essential (primary) hypertension Plan: Continue home meds (3) Hypothyroidism: Status: Chronic Qualifiers: Hypothyroidism type: unspecified Qualified Code(s): E03.9 - Hypothyroidism, unspecified Plan: Continue home meds (4) Hypokalemia: Status: Acute Plan: replete per protocol
[2020-03-11] MEDS: FLAGYL IV PREMIX 500 MG BAG 500 MG/100 ML BAG IV SCH ×2 (12:34→20:49)
[2020-03-12] MEDS: FLAGYL IV PREMIX 500 MG BAG 500 MG/100 ML BAG IV SCH ×3 (05:50→19:28)
[2020-03-12 06:03] LABS: BASOPHILS # (AUTO) 0.1 X10^3/uL (0.0-0.1); BASOPHILS % (AUTO) 0.5 % (0.2-1.0); EOSINOPHILS # (AUTO) 0.3 x10^3/uL (0.0-0.2); EOSINOPHILS % (AUTO) 2.9 % (0.9-2.9); HEMATOCRIT 37.5 % (42.0-54.0); HEMOGLOBIN 12.2 g/dL (13.5-18.0); LYMPHOCYTES # (AUTO) 2.6 X10^3/uL (1.3-2.9); LYMPHOCYTES % (AUTO) 25.4 % (21.0-51.0); MEAN CORPUSCULAR HEMOGLOBIN 26.7 pg (27.0-34.0); MEAN CORPUSCULAR HGB CONC 32.7 g/dL (33.0-35.0); MEAN CORPUSCULAR VOLUME 81.7 fL (80.0-100.0); MEAN PLATELET VOLUME 8.9 fL (7.4-11.0); MONOCYTES # (AUTO) 1.1 x10^3/uL (0.3-0.8); MONOCYTES % (AUTO) 11.4 % (0.0-13.0); NEUTROPHILS % (AUTO) 59.8 % (42.0-75.0); PLATELET COUNT 229 X10^3/uL (150.0-450.0); RED BLOOD COUNT 4.59 X10^6/uL (4.7-6.0); RED CELL DISTRIBUTION WIDTH 17.4 % (11.6-16.5); WHITE BLOOD COUNT 10.1 X10^3/uL (3.6-10.0)
[2020-03-12 06:40] LABS: ALANINE AMINOTRANSFERASE 12 Units/L (12-78); ALBUMIN 3.3 g/dL (3.4-5.0); ALKALINE PHOSPHATASE 105 Units/L (46-116); ASPARTATE AMINO TRANSFERASE 18 Units/L (15-37); BLOOD UREA NITROGEN 10 mg/dL (7-18); CALCIUM 8.8 mg/dL (8.5-10.1); CARBON DIOXIDE 23.5 mmol/L (21-32); CHLORIDE 103 mmol/L (98-107); COR CA(FOR HYPOALB) 9.4 mg/dL (8.5-10.1); CREATININE 0.97 mg/dL (0.70-1.30); SODIUM 138 mmol/L (136-145); TOTAL PROTEIN 7.2 g/dL (6.4-8.2); eGFR NON BLACK RACES > 60 (>60)
--- NOTE | 2020-03-12 08:11 | PCM.PROG ---
Progress Note Progress Note for Day of Date of Exam: 03/12/20 Subjective Subjective: Pt is a 85 yo m pmhx post colostomy, rectal cancer, HTN, Hypothyroidism, admitted for prolapsed colostomy with obstruction. Today he resting in bed. Yesterday he had colonoscopy to evaluate rectal anastomosis. Today, he is scheduled for surgery to repair prolapse and close colostomy. Labs/imaging: Wbc 10.1, Hgb 12.2, Plt 229, Na 138, K 3.4, Cr 0.97, Gluc 108. Pt is NPO. Continue to monitor and follow up recommendations and labs. Past Medical Family Social History Past Med/Fam/Surg Hx: No changes since H&P Allergies: Allergies No Known Drug Allergies Allergy (Verified 03/10/20 13:14) Review of Systems ROS: No change since H&P Vital Signs and I&O's Vital Signs: Temperature 97.5 F Pulse Rate [Left Brachial] 96 Respiratory Rate 20 Blood Pressure [Right Arm] 136/75 Blood Pressure [Left Arm] 157/74 O2 Sat by Pulse Oximetry 91 Intake and Output: Intake & Output 03/09/20 03/10/20 03/11/20 03/12/20 23:59 23:59 23:59 23:59 Intake Total 920 / 920 620 / 620 120 / 120 Output Total 450 / 450 500 / 500 Balance 470 / 470 120 / 120 120 / 120 Physical Exam Oriented: Normal Eyes: Normal Ear: Normal Nose: Normal Throat: Normal Respiratory: Normal Cardiovascular: Normal : Normal Auscultation: Bowel Sounds: Normal Tenderness: Normal Skin: Other (Prolapsed colostomy noted ) Musculoskeletal: Normal Psychiatric: Normal Mood Description: Calm Speech Pattern: Clear and Appropriate Laboratory and Diagnostics Result Diagrams: 03/12/20 05:15 03/12/20 05:15 Labs: Laboratory WBC 10.1 X10^3/uL (3.6-10.0) H 03/12/20 05:15 RBC 4.59 X10^6/uL (4.7-6.0) L 03/12/20 05:15 Hgb 12.2 g/dL (13.5-18.0) L 03/12/20 05:15 Hct 37.5 % (42.0-54.0) L 03/12/20 05:15 MCV 81.7 fL (80.0-100.0) 03/12/20 05:15 MCH 26.7 pg (27.0-34.0) L 03/12/20 05:15 MCHC 32.7 g/dL (33.0-35.0) L 03/12/20 05:15 RDW 17.4 % (11.6-16.5) H 03/12/20 05:15 Plt Count 229 X10^3/uL (150.0-450.0) 03/12/20 05:15 MPV 8.9 fL (7.4-11.0) 03/12/20 05:15 Neut % (Auto) 59.8 % (42.0-75.0) 03/12/20 05:15 Lymph % (Auto) 25.4 % (21.0-51.0) 03/12/20 05:15 [place] % (Auto) 11.4 % (0.0-13.0) 03/12/20 05:15 Eos % (Auto) 2.9 % (0.9-2.9) 03/12/20 05:15 Baso % (Auto) 0.5 % (0.2-1.0) 03/12/20 05:15 Neut # (Auto) 6.0 x10^3/uL (2.2-4.8) H 03/12/20 05:15 Lymph # (Auto) 2.6 X10^3/uL (1.3-2.9) 03/12/20 05:15 [place] # (Auto) 1.1 x10^3/uL (0.3-0.8) H 03/12/20 05:15 Eos # (Auto) 0.3 x10^3/uL (0.0-0.2) H 03/12/20 05:15 Baso # (Auto) 0.1 X10^3/uL (0.0-0.1) 03/12/20 05:15 Absolute Nucleated RBC 0.0 /100WBC 03/12/20 05:15 Sodium 138 mmol/L (136-145) 03/12/20 05:15 Corrected Sodium TNP 03/12/20 05:15 Potassium 3.4 mmol/L (3.5-5.1) L 03/12/20 05:15 Chloride 103 mmol/L (98-107) 03/12/20 05:15 Carbon Dioxide 23.5 mmol/L (21-32) 03/12/20 05:15 BUN 10 mg/dL (7-18) 03/12/20 05:15 Creatinine 0.97 mg/dL (0.70-1.30) 03/12/20 05:15 Est GFR (MDRD) Af Amer > 60 (>60) 03/12/20 05:15 Est GFR (MDRD) Non-Af > 60 (>60) 03/12/20 05:15 Glucose 108 mg/dL (65-99) H 03/12/20 05:15 Calcium 8.8 mg/dL (8.5-10.1) 03/12/20 05:15 Corrected Calcium 9.4 mg/dL (8.5-10.1) 03/12/20 05:15 Total Bilirubin 1.30 mg/dL (0.2-1.0) H 03/12/20 05:15 AST 18 Units/L (15-37) 03/12/20 05:15 ALT 12 Units/L (12-78) 03/12/20 05:15 Alkaline Phosphatase 105 Units/L (46-116) 03/12/20 05:15 Total Protein 7.2 g/dL (6.4-8.2) 03/12/20 05:15 Albumin 3.3 g/dL (3.4-5.0) L 03/12/20 05:15 Globulin 3.9 g/dL (2.5-4.5) 03/12/20 05:15 Albumin/Globulin Ratio 0.8 Ratio (1.1-2.1) L 03/12/20 05:15 Tissue Pathology To follow 03/11/20 11:13 Plan (1) Colostomy prolapse: Status: Acute Plan: Scheduled for surgery today repairing prolapse and closing colostomy. (2) Hypertension: Status: Chronic Qualifiers: Hypertension type: essential hypertension Qualified Code(s): I10 - Essential (primary) hypertension Plan: Continue home meds (3) Hypothyroidism: Status: Chronic Qualifiers: Hypothyroidism type: unspecified Qualified Code(s): E03.9 - Hy pothyroidism, unspecified Plan: Continue home meds (4) Hypokalemia: Status: Acute Plan: replete per protocol
[2020-03-12] MEDS: PROCARDIA XL PO SCH (08:28)
[2020-03-12] MEDS: SYNTHROID 125 mcg TAB PO SCH (08:28)
[2020-03-12] MEDS: NORVASC TAB 10 MG PO SCH (08:28)
[2020-03-12] MEDS ORDERED: FENTANYL INJ 250 mcg ONE (10:06)
[2020-03-12] MEDS ORDERED: NS 1000 ML 1,000 ML ONE (10:12)
[2020-03-12] MEDS: TIMOLOL MALEATE OP SCH (10:38)
[2020-03-12] MEDS ORDERED: NS 1000 ML 1,000 ML IV SCH (11:00)
[2020-03-12] MEDS ORDERED: LR 1000 ML IV 1,000 ML IV ONE (13:53)
[2020-03-12] MEDS ORDERED: ANCEF 1 GRAM IV PREMIX* 2 G/100 ML BAG IV ONE (14:03)
[2020-03-12] MEDS ORDERED: BETADINE SOLN ONE (14:48)
[2020-03-12] MEDS ORDERED: POLYMYXIN B SULFATE ONE (14:55)
[2020-03-12] MEDS ORDERED: ZOFRAN INJ 4 MG VIAL ONE (16:08)
[2020-03-12] MEDS: DILAUDID INJ IVP PRN ×2 (17:05→21:08)
[2020-03-12] MEDS: D5 1/2 NS 1000 ML 1,000 ML IV SCH (17:06)
[2020-03-12] MEDS ORDERED: ANCEF VIAL 1 GRAM ONE (19:37)
[2020-03-12] MEDS: ANCEF VIAL 1 GRAM IVP SCH (21:08)
[2020-03-13] MEDS: D5 1/2 NS 1000 ML 1,000 ML IV SCH ×3 (02:47→22:01)
[2020-03-13] MEDS: FLAGYL IV PREMIX 500 MG BAG 500 MG/100 ML BAG IV SCH ×3 (04:52→20:09)
[2020-03-13] MEDS: ANCEF VIAL 1 GRAM IVP SCH ×3 (05:10→22:02)
[2020-03-13 06:40] LABS: BASOPHILS # (AUTO) 0.1 X10^3/uL (0.0-0.1); BASOPHILS % (AUTO) 0.5 % (0.2-1.0); EOSINOPHILS # (AUTO) 0.1 x10^3/uL (0.0-0.2); EOSINOPHILS % (AUTO) 0.5 % (0.9-2.9); HEMATOCRIT 32.9 % (42.0-54.0); HEMOGLOBIN 10.7 g/dL (13.5-18.0); LYMPHOCYTES # (AUTO) 1.8 X10^3/uL (1.3-2.9); LYMPHOCYTES % (AUTO) 15.1 % (21.0-51.0); MEAN CORPUSCULAR HEMOGLOBIN 26.9 pg (27.0-34.0); MEAN CORPUSCULAR HGB CONC 32.7 g/dL (33.0-35.0); MEAN CORPUSCULAR VOLUME 82.5 fL (80.0-100.0); MEAN PLATELET VOLUME 8.7 fL (7.4-11.0); MONOCYTES # (AUTO) 1.2 x10^3/uL (0.3-0.8); MONOCYTES % (AUTO) 10.1 % (0.0-13.0); NEUTROPHILS # (AUTO) 8.8 x10^3/uL (2.2-4.8); NEUTROPHILS % (AUTO) 73.8 % (42.0-75.0); PLATELET COUNT 201 X10^3/uL (150.0-450.0); RED BLOOD COUNT 3.99 X10^6/uL (4.7-6.0); RED CELL DISTRIBUTION WIDTH 17.4 % (11.6-16.5)
[2020-03-13 07:01] LABS: ALANINE AMINOTRANSFERASE 13 Units/L (12-78); ALBUMIN 2.7 g/dL (3.4-5.0); ALKALINE PHOSPHATASE 83 Units/L (46-116); ASPARTATE AMINO TRANSFERASE 16 Units/L (15-37); BLOOD UREA NITROGEN 10 mg/dL (7-18); CARBON DIOXIDE 27.2 mmol/L (21-32); CHLORIDE 105 mmol/L (98-107); COR NA(FOR HYPERGLY) 139 mmol/L (136-145); CREATININE 0.95 mg/dL (0.70-1.30); SODIUM 138 mmol/L (136-145); TOTAL PROTEIN 6.1 g/dL (6.4-8.2); eGFR NON BLACK RACES > 60 (>60)
--- NOTE | 2020-03-13 08:13 | PCM.PROG ---
Progress Note Progress Note for Day of Date of Exam: 03/13/20 Subjective Subjective: Pt is a 85 yo m pmhx rectal cancer, HTN, Hypothyroidism, admitted for prolapsed colostomy with obstruction. Today he is post-op D#1 resection transverse colon with primary anastomosis and closure of colostomy. Pt c/o of some abdominal pain but only around surgical incision site. He is otherwise gradually recovering from procedure. On exam he does have good bowel sounds w/ mild tenderness. Will keep NPO until surgery decides appropriate time to start diet, usually 24-48h post procedure, then gradually advance diet. He was started yesterday on prophylactic abx Cefazolin. Labs/imaging: Wbc 12, Hgb 10.7, Plt 201, Na 138, K 3.7, Cr 0.95, Gluc 125. Continue to monitor and follow up labs/im aging in the morning. Past Medical Family Social History Past Med/Fam/Surg Hx: No changes since H&P Allergies: Allergies No Known Drug Allergies Allergy (Verified 03/10/20 13:14) Review of Systems ROS: No change since H&P Vital Signs and I&O's Vital Signs: Temperature 97.6 F Pulse Rate [Left Brachial] 85 Pulse Rate 90 Respiratory Rate 20 Blood Pressure [Right Arm] 126/59 Blood Pressure [Left Arm] 157/74 Blood Pressure 105/52 O2 Sat by Pulse Oximetry 98 Intake and Output: Intake & Output 03/10/20 03/11/20 03/12/20 03/13/20 23:59 23:59 23:59 23:59 Intake Total 920 / 920 620 / 620 2930 / 2930 0 / 0 Output Total 450 / 450 500 / 500 1525 / 1525 225 / 225 Balance 470 / 470 120 / 120 1405 / 1405 -225 / -225 Physical Exam Oriented: Normal Eyes: Normal Ear: Normal Nose: Normal Throat: Normal Respiratory: Normal Cardiovascular: Normal : Normal Auscultation: Bowel Sounds: Normal Tenderness: Normal Skin: Other (surgical wound dressing) Musculoskeletal: Normal Psychiatric: Normal Mood Description: Calm Speech Pattern: Clear Laboratory and Diagnostics Result Diagrams: 03/13/20 05:12 03/13/20 05:12 Labs: Laboratory WBC 12.0 X10^3/uL (3.6-10.0) H 03/13/20 05:12 RBC 3.99 X10^6/uL (4.7-6.0) L 03/13/20 05:12 Hgb 10.7 g/dL (13.5-18.0) L 03/13/20 05:12 Hct 32.9 % (42.0-54.0) L 03/13/20 05:12 MCV 82.5 fL (80.0-100.0) 03/13/20 05:12 MCH 26.9 pg (27.0-34.0) L 03/13/20 05:12 MCHC 32.7 g/dL (33.0-35.0) L 03/13/20 05:12 RDW 17.4 % (11.6-16.5) H 03/13/20 05:12 Plt Count 201 X10^3/uL (150.0-450.0) 03/13/20 05:12 MPV 8.7 fL (7.4-11.0) 03/13/20 05:12 Neut % (Auto) 73.8 % (42.0-75.0) 03/13/20 05:12 Lymph % (Auto) 15.1 % (21.0-51.0) L 03/13/20 05:12 [place] % (Auto) 10.1 % (0.0-13.0) 03/13/20 05:12 Eos % (Auto) 0.5 % (0.9-2.9) L 03/13/20 05:12 Baso % (Auto) 0.5 % (0.2-1.0) 03/13/20 05:12 Neut # (Auto) 8.8 x10^3/uL (2.2-4.8) H 03/13/20 05:12 Lymph # (Auto) 1.8 X10^3/uL (1.3-2.9) 03/13/20 05:12 [place] # (Auto) 1.2 x10^3/uL (0.3-0.8) H 03/13/20 05:12 Eos # (Auto) 0.1 x10^3/uL (0.0-0.2) 03/13/20 05:12 Baso # (Auto) 0.1 X10^3/uL (0.0-0.1) 03/13/20 05:12 Absolute Nucleated RBC 0.0 /100WBC 03/13/20 05:12 Sodium 138 mmol/L (136-145) 03/13/20 05:12 Corrected Sodium 139 mmol/L (136-145) 03/13/20 05:12 Potassium 3.7 mmol/L (3.5-5.1) 03/13/20 05:12 Chloride 105 mmol/L (98-107) 03/13/20 05:12 Carbon Dioxide 27.2 mmol/L (21-32) 03/13/20 05:12 BUN 10 mg/dL (7-18) 03/13/20 05:12 Creatinine 0.95 mg/dL (0.70-1.30) 03/13/20 05:12 Est GFR (MDRD) Af Amer > 60 (>60) 03/13/20 05:12 Est GFR (MDRD) Non-Af > 60 (>60) 03/13/20 05:12 Glucose 125 mg/dL (65-99) H 03/13/20 05:12 Calcium 8.0 mg/dL (8.5-10.1) L 03/13/20 05:12 Corrected Calcium 9.0 mg/dL (8.5-10.1) 03/13/20 05:12 Total Bilirubin 0.60 mg/dL (0.2-1.0) 03/13/20 05:12 AST 16 Units/L (15-37) 03/13/20 05:12 ALT 13 Units/L (12-78) 03/13/20 05:12 Alkaline Phosphatase 83 Units/L (46-116) 03/13/20 05:12 Total Protein 6.1 g/dL (6.4-8.2) L 03/13/20 05:12 Albumin 2.7 g/dL (3.4-5.0) L 03/13/20 05:12 Globulin 3.4 g/dL (2.5-4.5) 03/13/20 05:12 Albumin/Globulin Ratio 0.8 Ratio (1.1-2.1) L 03/13/20 05:12 Tissue Pathology To follow 03/12/20 15:08 Plan (1) S/P colon resection: Status: Chronic Plan: Post-op Day#1 (2) Colostomy prolapse: Status: Resolved Plan: Scheduled for surgery today repairing prolapse and closing colostomy. (3) Hypertension: Status: Chronic Qualifiers: Hypertension type: essential hypertension Qualified Code(s): I10 - Essential (primary) hypertension Plan: Continue home meds (4) Hypothyroidism: Status: Chronic Qualifiers: Hypothyroidism type: unspecified Qualified Code(s): E03.9 - Hy pothyroidism, unspecified Plan: Continue home meds (5) Hypokalemia: Status: Acute Plan: replete per protocol
--- NOTE | 2020-03-13 09:09 | DR.PROGNOT ---
Hospital Progress Notes - Progress Note for Day of: Progress Note Date: 03/13/20 - Past Medical Family Social History Past Med/Fam/Surg Hx: No changes since H&P Allergies: Allergies No Known Drug Allergies Allergy (Verified 03/10/20 13:14) - Review Of Systems ROS: No change since H&P - Vital Signs Vital Signs: Temperature 97.6 F Pulse Rate [Left Brachial] 85 Pulse Rate 90 Respiratory Rate 20 Blood Pressure [Right Arm] 126/59 Blood Pressure [Left Arm] 157/74 Blood Pressure 105/52 O2 Sat by Pulse Oximetry 98 - Physical Exam Oriented: Normal Eyes: Normal Ear: Normal Nose: Normal Throat: Normal Respiratory: Normal Cardiovascular: Normal : Normal GI:Auscultation: Decreased GI:Palpation: Normal GI: Tenderness: Diffuse (moderate diffuse tenderness . hypoactive BS .) Skin: Other (surgical wound dressing) Musculoskeletal: Normal Psychiatric: Normal Mood Description: Calm Speech Pattern: Clear - Laboratory and Diagnostics Result Diagrams: 03/13/20 05:12 03/13/20 05:12 Labs: Laboratory WBC 12.0 X10^3/uL (3.6-10.0) H 03/13/20 05:12 RBC 3.99 X10^6/uL (4.7-6.0) L 03/13/20 05:12 Hgb 10.7 g/dL (13.5-18.0) L 03/13/20 05:12 Hct 32.9 % (42.0-54.0) L 03/13/20 05:12 MCV 82.5 fL (80.0-100.0) 03/13/20 05:12 MCH 26.9 pg (27.0-34.0) L 03/13/20 05:12 MCHC 32.7 g/dL (33.0-35.0) L 03/13/20 05:12 RDW 17.4 % (11.6-16.5) H 03/13/20 05:12 Plt Count 201 X10^3/uL (150.0-450.0) 03/13/20 05:12 MPV 8.7 fL (7.4-11.0) 03/13/20 05:12 Neut % (Auto) 73.8 % (42.0-75.0) 03/13/20 05:12 Lymph % (Auto) 15.1 % (21.0-51.0) L 03/13/20 05:12 [place] % (Auto) 10.1 % (0.0-13.0) 03/13/20 05:12 Eos % (Auto) 0.5 % (0.9-2.9) L 03/13/20 05:12 Baso % (Auto) 0.5 % (0.2-1.0) 03/13/20 05:12 Neut # (Auto) 8.8 x10^3/uL (2.2-4.8) H 03/13/20 05:12 Lymph # (Auto) 1.8 X10^3/uL (1.3-2.9) 03/13/20 05:12 [place] # (Auto) 1.2 x10^3/uL (0.3-0.8) H 03/13/20 05:12 Eos # (Auto) 0.1 x10^3/uL (0.0-0.2) 03/13/20 05:12 Baso # (Auto) 0.1 X10^3/uL (0.0-0.1) 03/13/20 05:12 Absolute Nucleated RBC 0.0 /100WBC 03/13/20 05:12 Sodium 138 mmol/L (136-145) 03/13/20 05:12 Corrected Sodium 139 mmol/L (136-145) 03/13/20 05:12 Potassium 3.7 mmol/L (3.5-5.1) 03/13/20 05:12 Chloride 105 mmol/L (98-107) 03/13/20 05:12 Carbon Dioxide 27.2 mmol/L (21-32) 03/13/20 05:12 BUN 10 mg/dL (7-18) 03/13/20 05:12 Creatinine 0.95 mg/dL (0.70-1.30) 03/13/20 05:12 Est GFR (MDRD) Af Amer > 60 (>60) 03/13/20 05:12 Est GFR (MDRD) Non-Af > 60 (>60) 03/13/20 05:12 Glucose 125 mg/dL (65-99) H 03/13/20 05:12 Calcium 8.0 mg/dL (8.5-10.1) L 03/13/20 05:12 Corrected Calcium 9.0 mg/dL (8.5-10.1) 03/13/20 05:12 Total Bilirubin 0.60 mg/dL (0.2-1.0) 03/13/20 05:12 AST 16 Units/L (15-37) 03/13/20 05:12 ALT 13 Units/L (12-78) 03/13/20 05:12 Alkaline Phosphatase 83 Units/L (46-116) 03/13/20 05:12 Total Protein 6.1 g/dL (6.4-8.2) L 03/13/20 05:12 Albumin 2.7 g/dL (3.4-5.0) L 03/13/20 05:12 Globulin 3.4 g/dL (2.5-4.5) 03/13/20 05:12 Albumin/Globulin Ratio 0.8 Ratio (1.1-2.1) L 03/13/20 05:12 Tissue Pathology To follow 03/12/20 15:08 - Assessment and Plan 1: POST OP segmental resection of prolapsed colostomy with anastomosis . to s tart on clear liquid . OOB . D/C [place] . incentive spirometer and DVT prophylaxis . - Problem Patient Problems: Patient Problems Hypokalemia (Acute) E87.6 Colostomy prolapse (Resolved) K94.09
[2020-03-13] MEDS: LOVENOX INJ 40 MG SYR SC SCH (09:22)
[2020-03-13] MEDS: PROTONIX INJ 40 MG VIAL IVP SCH (09:22)
[2020-03-13] MEDS: NORVASC TAB 10 MG PO SCH (09:23)
[2020-03-13] MEDS: SYNTHROID 125 mcg TAB PO SCH (09:23)
[2020-03-13] MEDS: K-DUR TAB 20 MEQ PO SCH (09:24)
[2020-03-13] MEDS: PROCARDIA XL PO SCH (09:24)
[2020-03-13] MEDS: LASIX PO SCH (09:25)
[2020-03-13] MEDS: TIMOLOL MALEATE OP SCH (09:48)
[2020-03-13] MEDS ORDERED: FLOMAX ONE (19:32)
[2020-03-13] MEDS: DILAUDID INJ IVP PRN (20:08)
[2020-03-13] MEDS: FLOMAX PO SCH (20:09)
[2020-03-14] MEDS: DILAUDID INJ IVP PRN ×2 (04:10→21:50)
[2020-03-14] MEDS: FLAGYL IV PREMIX 500 MG BAG 500 MG/100 ML BAG IV SCH ×3 (04:45→21:06)
[2020-03-14] MEDS: ANCEF VIAL 1 GRAM IVP SCH ×3 (05:03→21:06)
[2020-03-14] MEDS: D5 1/2 NS 1000 ML 1,000 ML IV SCH ×3 (06:06→16:11)
[2020-03-14 06:23] LABS: BASOPHILS # (AUTO) 0.1 X10^3/uL (0.0-0.1); BASOPHILS % (AUTO) 0.5 % (0.2-1.0); EOSINOPHILS # (AUTO) 0.2 x10^3/uL (0.0-0.2); EOSINOPHILS % (AUTO) 1.7 % (0.9-2.9); HEMATOCRIT 31.4 % (42.0-54.0); HEMOGLOBIN 10.1 g/dL (13.5-18.0); LYMPHOCYTES # (AUTO) 2.4 X10^3/uL (1.3-2.9); MEAN CORPUSCULAR HGB CONC 32.3 g/dL (33.0-35.0); MEAN CORPUSCULAR VOLUME 83.7 fL (80.0-100.0); MEAN PLATELET VOLUME 8.8 fL (7.4-11.0); MONOCYTES # (AUTO) 1.4 x10^3/uL (0.3-0.8); MONOCYTES % (AUTO) 13.3 % (0.0-13.0); NEUTROPHILS # (AUTO) 6.8 x10^3/uL (2.2-4.8); NEUTROPHILS % (AUTO) 62.5 % (42.0-75.0); PLATELET COUNT 179 X10^3/uL (150.0-450.0); RED BLOOD COUNT 3.75 X10^6/uL (4.7-6.0); RED CELL DISTRIBUTION WIDTH 17.5 % (11.6-16.5); WHITE BLOOD COUNT 10.9 X10^3/uL (3.6-10.0)
[2020-03-14 06:31] LABS: ALANINE AMINOTRANSFERASE 9 Units/L (12-78); ALBUMIN 2.4 g/dL (3.4-5.0); ALKALINE PHOSPHATASE 71 Units/L (46-116); ASPARTATE AMINO TRANSFERASE 19 Units/L (15-37); BLOOD UREA NITROGEN 7 mg/dL (7-18); CALCIUM 8.1 mg/dL (8.5-10.1); CARBON DIOXIDE 24.9 mmol/L (21-32); CHLORIDE 106 mmol/L (98-107); COR CA(FOR HYPOALB) 9.4 mg/dL (8.5-10.1); COR NA(FOR HYPERGLY) 137 mmol/L (136-145); CREATININE 1.01 mg/dL (0.70-1.30); SODIUM 137 mmol/L (136-145); TOTAL PROTEIN 5.8 g/dL (6.4-8.2); eGFR NON BLACK RACES > 60 (>60)
--- NOTE | 2020-03-14 09:15 | DR.PROGNOT ---
Hospital Progress Notes - Progress Note for Day of: Progress Note Date: 03/14/20 - Chief Complaint Chief Complaint: having moderate abdominal pain . no nausea or vomiting . no BM yet . CBC, CMP normal . temp is normal .. was 100.1 last night . - Past Medical Family Social History Past Med/Fam/Surg Hx: No changes since H&P Allergies: Allergies No Known Drug Allergies Allergy (Verified 03/10/20 13:14) - Review Of Systems ROS: No change since H&P - Vital Signs Vital Signs: Temperature 98.6 F Pulse Rate [Left Brachial] 85 Pulse Rate 90 Respiratory Rate 20 Blood Pressure [Right Arm] 128/59 Blood Pressure [Left Arm] 157/74 Blood Pressure 105/52 O2 Sat by Pulse Oximetry 91 - Physical Exam Oriented: Normal Eyes: Normal Ear: Normal Nose: Normal Throat: Normal Respiratory: Normal Cardiovascular: Normal : Normal GI:Auscultation: Decreased GI:Palpation: Normal GI: Tenderness: Diffuse (moderate diffuse tenderness . hypoactive BS .) Skin: Other (surgical wound dressing) Musculoskeletal: Normal Psychiatric: Normal Mood Description: Calm Speech Pattern: Clear, Appropriate - Laboratory and Diagnostics Result Diagrams: 03/14/20 05:45 03/14/20 05:45 Labs: Laboratory WBC 10.9 X10^3/uL (3.6-10.0) H 03/14/20 05:45 RBC 3.75 X10^6/uL (4.7-6.0) L 03/14/20 05:45 Hgb 10.1 g/dL (13.5-18.0) L 03/14/20 05:45 Hct 31.4 % (42.0-54.0) L 03/14/20 05:45 MCV 83.7 fL (80.0-100.0) 03/14/20 05:45 MCH 27.0 pg (27.0-34.0) 03/14/20 05:45 MCHC 32.3 g/dL (33.0-35.0) L 03/14/20 05:45 RDW 17.5 % (11.6-16.5) H 03/14/20 05:45 Plt Count 179 X10^3/uL (150.0-450.0) 03/14/20 05:45 MPV 8.8 fL (7.4-11.0) 03/14/20 05:45 Neut % (Auto) 62.5 % (42.0-75.0) 03/14/20 05:45 Lymph % (Auto) 22.0 % (21.0-51.0) 03/14/20 05:45 [place] % (Auto) 13.3 % (0.0-13.0) H 03/14/20 05:45 Eos % (Auto) 1.7 % (0.9-2.9) 03/14/20 05:45 Baso % (Auto) 0.5 % (0.2-1.0) 03/14/20 05:45 Neut # (Auto) 6.8 x10^3/uL (2.2-4.8) H 03/14/20 05:45 Lymph # (Auto) 2.4 X10^3/uL (1.3-2.9) 03/14/20 05:45 [place] # (Auto) 1.4 x10^3/uL (0.3-0.8) H 03/14/20 05:45 Eos # (Auto) 0.2 x10^3/uL (0.0-0.2) 03/14/20 05:45 Baso # (Auto) 0.1 X10^3/uL (0.0-0.1) 03/14/20 05:45 Absolute Nucleated RBC 0.0 /100WBC 03/14/20 05:45 Sodium 137 mmol/L (136-145) 03/14/20 05:45 Corrected Sodium 137 mmol/L (136-145) 03/14/20 05:45 Potassium 3.5 mmol/L (3.5-5.1) 03/14/20 05:45 Chloride 106 mmol/L (98-107) 03/14/20 05:45 Carbon Dioxide 24.9 mmol/L (21-32) 03/14/20 05:45 BUN 7 mg/dL (7-18) 03/14/20 05:45 Creatinine 1.01 mg/dL (0.70-1.30) 03/14/20 05:45 Est GFR (MDRD) Af Amer > 60 (>60) 03/14/20 05:45 Est GFR (MDRD) Non-Af > 60 (>60) 03/14/20 05:45 Glucose 118 mg/dL (65-99) H 03/14/20 05:45 Calcium 8.1 mg/dL (8.5-10.1) L 03/14/20 05:45 Corrected Calcium 9.4 mg/dL (8.5-10.1) 03/14/20 05:45 Total Bilirubin 0.50 mg/dL (0.2-1.0) 03/14/20 05:45 AST 19 Units/L (15-37) 03/14/20 05:45 ALT 9 Units/L (12-78) L 03/14/20 05:45 Alkaline Phosphatase 71 Units/L (46-116) 03/14/20 05:45 Total Protein 5.8 g/dL (6.4-8.2) L 03/14/20 05:45 Albumin 2.4 g/dL (3.4-5.0) L 03/14/20 05:45 Globulin 3.4 g/dL (2.5-4.5) 03/14/20 05:45 Albumin/Globulin Ratio 0.7 Ratio (1.1-2.1) L 03/14/20 05:45 Tissue Pathology To follow 03/12/20 15:08 - Assessment and Plan 1: POST OP segmental resection of prolapsed colostomy with anastomosis . to advance diet . OOB with binder . incentive spirometer and DVT prophylaxis . - Problem Patient Problems: Patient Problems Hypokalemia (Acute) E87.6 Colostomy prolapse (Resolved) K94.09
[2020-03-14] MEDS: K-DUR TAB 20 MEQ PO SCH (09:22)
[2020-03-14] MEDS: PROTONIX INJ 40 MG VIAL IVP SCH (09:22)
[2020-03-14] MEDS: PROCARDIA XL PO SCH (09:22)
[2020-03-14] MEDS: TIMOLOL MALEATE OP SCH (09:23)
[2020-03-14] MEDS: LASIX PO SCH (09:23)
[2020-03-14] MEDS: NORVASC TAB 10 MG PO SCH (09:23)
[2020-03-14] MEDS: LOVENOX INJ 40 MG SYR SC SCH (09:24)
[2020-03-14] MEDS: SYNTHROID 125 mcg TAB PO SCH (09:24)
--- NOTE | 2020-03-14 12:09 | PCM.PROG ---
Progress Note - Progress Note for Day of Date of Exam: 03/14/20 - Subjective Subjective: IS A 85 YEAR OLD PATIENT OF AND . HE IS POST OP DAY 2 RESECTION TRANSVERSE COLON WITH PRIMARY ANASTOMOSIS AND CLOSURE OF COLOSTOMY. HE REPORTS MODERATE ABDOMINAL PAIN TODAY. HE DID HAVE A TEMPERATURE OF 100.3 YESTERDAY AFTERNOON. RESTARTED A CLEAR LIQUID DIET YESTERDAY AND ORDERED FOR HIM TO BE OOB TID. HE DENIES NAUSEA OR VOMITING AND REPORTS THAT HE TOLERATED FLUIDS WELL. ON EXAMINATION, HEART IS REGULAR IN RATE AND RHYTHM. BILATERAL LUNGS ARE NOTED WITH DIMINISHED LUNG SOUNDS THROUGHOUT. ABDOMEN IS ROUND, SOFT, AND NOTED WITH DIFFUSE TENDERNESS. NORMAL BOWEL SOUNDS ARE NOTED IN ALL QUADRANTS. HIS VITALS THIS MORNING ARE: 98.6-85-20-91%NC-128/59. LABS WERE OBTAINED. ABNORMAL LAB VALUES INCLUDE THE FOLLOWING: WBC 10.9, RBC 3.75, HGB 10.1, HCT 31.4, GLUCOSE 118, CALCIUM 8.1, ALT 9, TOTAL PROTEIN 5.8, ALBUMIN 2.4. HE IS CURRENTLY RECEIVING D5/12NS AT 125ML/HR, FLAGYL 500MG IV Q8H, ANCEF 1G IV Q8H, LOVENOX 40MG SC DAILY, DILAUDID 1MG IV Q4H PRN PAIN, AND HIS HOME MEDICATIONS WERE RESUMED. PLANS TO ADVANCE HIS DIET TODAY. OTHERWISE, WE WILL OCNTINUE WITH CURRENT PLAN OF CARE. WE PLAN TO FOLLOW UP WITH AM LABS AND CONTINUE TO MONITOR. - Past Medical Family Social History Past Med/Fam/Surg Hx: No changes since H&P Allergies: Allergies No Known Drug Allergies Allergy (Verified 03/10/20 13:14) - Review of Systems ROS: No change since H&P - Vital Signs and I&O's Vital Signs: Temperature 98.6 F Pulse Rate [Left Brachial] 85 Pulse Rate 90 Respiratory Rate 20 Blood Pressure [Right Arm] 128/59 Blood Pressure [Left Arm] 157/74 Blood Pressure 105/52 O2 Sat by Pulse Oximetry 91 Intake and Output: Intake & Output 03/12/20 03/13/20 03/14/20 03/15/20 11:59 11:59 11:59 11:59 Intake Total 590 / 590 2810 / 2810 500 / 500 Output Total 500 / 500 1750 / 1750 450 / 450 Balance 90 / 90 1060 / 1060 50 / 50 - Physical Exam Oriented: Normal Eyes: Normal Ear: Normal Nose: Normal Throat: Normal Respiratory: Normal Cardiovascular: Normal : Normal Auscultation: Bowel Sounds: Decreased Palpation: Normal Tenderness: Diffuse (moderate diffuse tenderness . ) Skin: Other (surgical wound dressing) Musculoskeletal: Normal Psychiatric: Normal Mood Description: Calm Speech Pattern: Clear, Appropriate - Laboratory and Diagnostics Result Diagrams: 03/14/20 05:45 03/14/20 05:45 Labs: Laboratory WBC 10.9 X10^3/uL (3.6-10.0) H 03/14/20 05:45 RBC 3.75 X10^6/uL (4.7-6.0) L 03/14/20 05:45 Hgb 10.1 g/dL (13.5-18.0) L 03/14/20 05:45 Hct 31.4 % (42.0-54.0) L 03/14/20 05:45 MCV 83.7 fL (80.0-100.0) 03/14/20 05:45 MCH 27.0 pg (27.0-34.0) 03/14/20 05:45 MCHC 32.3 g/dL (33.0-35.0) L 03/14/20 05:45 RDW 17.5 % (11.6-16.5) H 03/14/20 05:45 Plt Count 179 X10^3/uL (150.0-450.0) 03/14/20 05:45 MPV 8.8 fL (7.4-11.0) 03/14/20 05:45 Neut % (Auto) 62.5 % (42.0-75.0) 03/14/20 05:45 Lymph % (Auto) 22.0 % (21.0-51.0) 03/14/20 05:45 [place] % (Auto) 13.3 % (0.0-13.0) H 03/14/20 05:45 Eos % (Auto) 1.7 % (0.9-2.9) 03/14/20 05:45 Baso % (Auto) 0.5 % (0.2-1.0) 03/14/20 05:45 Neut # (Auto) 6.8 x10^3/uL (2.2-4.8) H 03/14/20 05:45 Lymph # (Auto) 2.4 X10^3/uL (1.3-2.9) 03/14/20 05:45 [place] # (Auto) 1.4 x10^3/uL (0.3-0.8) H 03/14/20 05:45 Eos # (Auto) 0.2 x10^3/uL (0.0-0.2) 03/14/20 05:45 Baso # (Auto) 0.1 X10^3/uL (0.0-0.1) 03/14/20 05:45 Absolute Nucleated RBC 0.0 /100WBC 03/14/20 05:45 Sodium 137 mmol/L (136-145) 03/14/20 05:45 Corrected Sodium 137 mmol/L (136-145) 03/14/20 05:45 Potassium 3.5 mmol/L (3.5-5.1) 03/14/20 05:45 Chloride 106 mmol/L (98-107) 03/14/20 05:45 Carbon Dioxide 24.9 mmol/L (21-32) 03/14/20 05:45 BUN 7 mg/dL (7-18) 03/14/20 05:45 Creatinine 1.01 mg/dL (0.70-1.30) 03/14/20 05:45 Est GFR (MDRD) Af Amer > 60 (>60) 03/14/20 05:45 Est GFR (MDRD) Non-Af > 60 (>60) 03/14/20 05:45 Glucose 118 mg/dL (65-99) H 03/14/20 05:45 Calcium 8.1 mg/dL (8.5-10.1) L 03/14/20 05:45 Corrected Calcium 9.4 mg/dL (8.5-10.1) 03/14/20 05:45 Total Bilirubin 0.50 mg/dL (0.2-1.0) 03/14/20 05:45 AST 19 Units/L (15-37) 03/14/20 05:45 ALT 9 Units/L (12-78) L 03/14/20 05:45 Alkaline Phosphatase 71 Units/L (46-116) 03/14/20 05:45 Total Protein 5.8 g/dL (6.4-8.2) L 03/14/20 05:45 Albumin 2.4 g/dL (3.4-5.0) L 03/14/20 05:45 Globulin 3.4 g/dL (2.5-4.5) 03/14/20 05:45 Albumin/Globulin Ratio 0.7 Ratio (1.1-2.1) L 03/14/20 05:45 Tissue Pathology To follow 03/12/20 15:08 - Plan (1) S/P colon resection Status: Chronic Plan: Post-op Day#2. ADVANCE DIET TODAY. CONTINUE WITH FLUIDS, ANTIBIOTICS, PAIN MANAGEMENT. OOB TID
[2020-03-14] MEDS: FLOMAX PO SCH (21:06)
[2020-03-15] MEDS: D5 1/2 NS 1000 ML 1,000 ML IV SCH ×3 (00:47→17:38)
[2020-03-15] MEDS: FLAGYL IV PREMIX 500 MG BAG 500 MG/100 ML BAG IV SCH ×3 (04:00→21:04)
[2020-03-15] MEDS: ANCEF VIAL 1 GRAM IVP SCH ×3 (05:48→21:05)
[2020-03-15 06:14] LABS: BASOPHILS # (AUTO) 0.1 X10^3/uL (0.0-0.1); BASOPHILS % (AUTO) 0.5 % (0.2-1.0); EOSINOPHILS # (AUTO) 0.3 x10^3/uL (0.0-0.2); EOSINOPHILS % (AUTO) 3.4 % (0.9-2.9); HEMATOCRIT 32.6 % (42.0-54.0); HEMOGLOBIN 10.6 g/dL (13.5-18.0); LYMPHOCYTES # (AUTO) 1.9 X10^3/uL (1.3-2.9); LYMPHOCYTES % (AUTO) 20.5 % (21.0-51.0); MEAN CORPUSCULAR HEMOGLOBIN 27.1 pg (27.0-34.0); MEAN CORPUSCULAR HGB CONC 32.6 g/dL (33.0-35.0); MEAN CORPUSCULAR VOLUME 83.2 fL (80.0-100.0); MEAN PLATELET VOLUME 9.5 fL (7.4-11.0); MONOCYTES # (AUTO) 1.1 x10^3/uL (0.3-0.8); MONOCYTES % (AUTO) 11.9 % (0.0-13.0); NEUTROPHILS % (AUTO) 63.7 % (42.0-75.0); PLATELET COUNT 180 X10^3/uL (150.0-450.0); RED BLOOD COUNT 3.92 X10^6/uL (4.7-6.0); RED CELL DISTRIBUTION WIDTH 17.7 % (11.6-16.5); WHITE BLOOD COUNT 9.4 X10^3/uL (3.6-10.0)
[2020-03-15 06:32] LABS: ALANINE AMINOTRANSFERASE 6 Units/L (12-78); ALBUMIN 2.3 g/dL (3.4-5.0); ALKALINE PHOSPHATASE 71 Units/L (46-116); ASPARTATE AMINO TRANSFERASE 10 Units/L (15-37); BLOOD UREA NITROGEN 5 mg/dL (7-18); CALCIUM 8.1 mg/dL (8.5-10.1); CARBON DIOXIDE 24.9 mmol/L (21-32); CHLORIDE 105 mmol/L (98-107); COR CA(FOR HYPOALB) 9.5 mg/dL (8.5-10.1); CREATININE 0.86 mg/dL (0.70-1.30); SODIUM 137 mmol/L (136-145); TOTAL PROTEIN 5.8 g/dL (6.4-8.2); eGFR NON BLACK RACES > 60 (>60)
[2020-03-15] MEDS ORDERED: POTASSIUM CHL 40 MEQ/NS 0.45% 500 ML IV PRN (06:52)
[2020-03-15] MEDS ORDERED: K-RIDER 10 MEQ/NS 100 ML 10 MEQ/100 ML BAG IV PRN (06:52)
[2020-03-15] MEDS ORDERED: POTASSIUM CHL 60 MEQ/NS 0.45% 500 ML IV PRN (06:52)
[2020-03-15] MEDS ORDERED: POTASSIUM CHLORIDE LIQ 20 MEQ UDC PO PRN (06:52)
[2020-03-15] MEDS ORDERED: MICRO K EXTEN CAP 10 MEQ PO PRN (06:52)
[2020-03-15] MEDS ORDERED: MAGNESIUM SULFATE 1 GRAM/100 mL PREMIX 4 G/400 ML BAG IV SCH (07:25)
[2020-03-15] MEDS: MAGNESIUM SULFATE 1 GRAM/100 mL PREMIX 1 GM/100 ML BAG IV PRN ×3 (08:21→17:05)
[2020-03-15] MEDS: LOVENOX INJ 40 MG SYR SC SCH (08:25)
[2020-03-15] MEDS: PROTONIX INJ 40 MG VIAL IVP SCH (08:25)
[2020-03-15] MEDS: NORVASC TAB 10 MG PO SCH (08:26)
[2020-03-15] MEDS: PROCARDIA XL PO SCH (08:26)
[2020-03-15] MEDS: LASIX PO SCH (08:26)
[2020-03-15] MEDS: SYNTHROID 125 mcg TAB PO SCH (08:26)
[2020-03-15] MEDS: K-DUR TAB 20 MEQ PO SCH (08:27)
[2020-03-15] MEDS: DILAUDID INJ IVP PRN (08:51)
[2020-03-15] MEDS: TIMOLOL MALEATE OP SCH (09:45)
[2020-03-15] MEDS: K-DUR TAB 20 MEQ PO PRN (09:48)
[2020-03-15] MEDS: KLOR-CON PO PRN (14:09)
[2020-03-15] MEDS: FLOMAX PO SCH (21:04)
--- NOTE | 2020-03-15 23:14 | PCM.PROG ---
Progress Note - Progress Note for Day of Date of Exam: 03/15/20 - Subjective Subjective: IS A 85 YEAR OLD PATIENT OF AND . HE IS POST OP DAY 3 RESECTION TRANSVERSE COLON WITH PRIMARY ANASTOMOSIS AND CLOSURE OF COLOSTOMY. HE REPORTS ONLY MILD ABDOMINAL PAIN TODAY. ADVANCED HIM TO A SOFT DIET YESTERDAY AND ORDERED FOR HIM TO BE OOB TID. HE DENIES NAUSEA OR VOMITING AND REPORTS THAT HE TOLERATED FLUIDS WELL. ON EXAMINATION, HEART IS REGULAR IN RATE AND RHYTHM. BILATERAL LUNGS ARE NOTED WITH DIMINISHED LUNG SOUNDS THROUGHOUT. ABDOMEN IS ROUND, SOFT, AND NOTED WITH MILD, DIFFUSE TENDERNESS. NORMAL BOWEL SOUNDS ARE NOTED IN ALL QUADRANTS. HIS VITALS THIS MORNING ARE: 98.8-90-20-93%NC-126/60. LABS WERE OBTAINED. ABNORMAL LAB VALUES INCLUDE THE FOLLOWING: RBC 3.92, HGB 10.6, HCT 32.6, POTASSIUM 2.9, BUN 5, GLUCOSE 109, CALCIUM 8.1, MAGNESIUM 1.5, AST 10, ALT 6, TOTAL PROTEIN 5.8, ALBUMIN 2.3. HE IS CURRENTLY RECEIVING D5/12NS AT 125ML/HR, FLAGYL 500MG IV Q8H, ANCEF 1G IV Q8H, LOVENOX 40MG SC DAILY, DILAUDID 1MG IV Q4H PRN PAIN, AND HIS HOME MEDICATIONS WERE RESUMED. WE WILL CONTINUE WITH CURRENT PLAN OF CARE. WE PLAN TO FOLLOW UP WITH AM LABS AND CONTINUE TO MONITOR. - Past Medical Family Social History Past Med/Fam/Surg Hx: No changes since H&P Allergies: Allergies No Known Drug Allergies Allergy (Verified 03/10/20 13:14) - Review of Systems ROS: No change since H&P - Vital Signs and I&O's Vital Signs: Temperature 98.0 F Pulse Rate [Left Brachial] 92 Pulse Rate 90 Respiratory Rate 21 Blood Pressure [Right Arm] 102/55 Blood Pressure [Left Arm] 130/66 Blood Pressure 105/52 O2 Sat by Pulse Oximetry 94 Intake and Output: Intake & Output 03/13/20 03/14/20 03/15/20 03/16/20 11:59 11:59 11:59 11:59 Intake Total 2810 / 2810 500 / 500 3190 / 3190 1151 / 1151 Output Total 1750 / 1750 450 / 450 1400 / 1400 Balance 1060 / 1060 50 / 50 1790 / 1790 1151 / 1151 - Physical Exam Oriented: Normal Eyes: Normal Ear: Normal Nose: Normal Throat: Normal Respiratory: Normal Cardiovascular: Normal : Normal Auscultation: Bowel Sounds: Decreased Tenderness: Diffuse (moderate diffuse tenderness . ) Skin: Other (surgical wound dressing) Musculoskeletal: Normal Psychiatric: Normal Mood Description: Calm Speech Pattern: Clear, Appropriate - Laboratory and Diagnostics Result Diagrams: 03/15/20 05:30 03/15/20 16:04 Labs: Laboratory WBC 9.4 X10^3/uL (3.6-10.0) 03/15/20 05:30 RBC 3.92 X10^6/uL (4.7-6.0) L 03/15/20 05:30 Hgb 10.6 g/dL (13.5-18.0) L 03/15/20 05:30 Hct 32.6 % (42.0-54.0) L 03/15/20 05:30 MCV 83.2 fL (80.0-100.0) 03/15/20 05:30 MCH 27.1 pg (27.0-34.0) 03/15/20 05:30 MCHC 32.6 g/dL (33.0-35.0) L 03/15/20 05:30 RDW 17.7 % (11.6-16.5) H 03/15/20 05:30 Plt Count 180 X10^3/uL (150.0-450.0) 03/15/20 05:30 MPV 9.5 fL (7.4-11.0) 03/15/20 05:30 Neut % (Auto) 63.7 % (42.0-75.0) 03/15/20 05:30 Lymph % (Auto) 20.5 % (21.0-51.0) L 03/15/20 05:30 [place] % (Auto) 11.9 % (0.0-13.0) 03/15/20 05:30 Eos % (Auto) 3.4 % (0.9-2.9) H 03/15/20 05:30 Baso % (Auto) 0.5 % (0.2-1.0) 03/15/20 05:30 Neut # (Auto) 6.0 x10^3/uL (2.2-4.8) H 03/15/20 05:30 Lymph # (Auto) 1.9 X10^3/uL (1.3-2.9) 03/15/20 05:30 [place] # (Auto) 1.1 x10^3/uL (0.3-0.8) H 03/15/20 05:30 Eos # (Auto) 0.3 x10^3/uL (0.0-0.2) H 03/15/20 05:30 Baso # (Auto) 0.1 X10^3/uL (0.0-0.1) 03/15/20 05:30 Absolute Nucleated RBC 0.0 /100WBC 03/15/20 05:30 Sodium 137 mmol/L (136-145) 03/15/20 05:30 Corrected Sodium TNP 03/15/20 05:30 Potassium 3.5 mmol/L (3.5-5.1) 03/15/20 16:04 Chloride 105 mmol/L (98-107) 03/15/20 05:30 Carbon Dioxide 24.9 mmol/L (21-32) 03/15/20 05:30 BUN 5 mg/dL (7-18) L 03/15/20 05:30 Creatinine 0.86 mg/dL (0.70-1.30) 03/15/20 05:30 Est GFR (MDRD) Af Amer > 60 (>60) 03/15/20 05:30 Est GFR (MDRD) Non-Af > 60 (>60) 03/15/20 05:30 Glucose 109 mg/dL (65-99) H 03/15/20 05:30 Calcium 8.1 mg/dL (8.5-10.1) L 03/15/20 05:30 Corrected Calcium 9.5 mg/dL (8.5-10.1) 03/15/20 05:30 Magnesium 1.5 mg/dL (1.7-2.9) L 03/15/20 05:30 Total Bilirubin 0.50 mg/dL (0.2-1.0) 03/15/20 05:30 AST 10 Units/L (15-37) L 03/15/20 05:30 ALT 6 Units/L (12-78) L 03/15/20 05:30 Alkaline Phosphatase 71 Units/L (46-116) 03/15/20 05:30 Total Protein 5.8 g/dL (6.4-8.2) L 03/15/20 05:30 Albumin 2.3 g/dL (3.4-5.0) L 03/15/20 05:30 Globulin 3.5 g/dL (2.5-4.5) 03/15/20 05:30 Albumin/Globulin Ratio 0.7 Ratio (1.1-2.1) L 03/15/20 05:30 Tissue Pathology To follow 03/12/20 15:08 - Plan (1) S/P colon resection Status: Chronic Plan: Post-op Day#2. ADVANCE DIET TODAY. CONTINUE WITH FLUIDS, ANTIBIOTICS, PAIN MANAGEMENT. OOB TID
[2020-03-16] MEDS: D5 1/2 NS 1000 ML 1,000 ML IV SCH ×2 (02:28→12:11)
[2020-03-16] MEDS: FLAGYL IV PREMIX 500 MG BAG 500 MG/100 ML BAG IV SCH (04:25)
[2020-03-16] MEDS: ANCEF VIAL 1 GRAM IVP SCH (05:29)
[2020-03-16 06:01] LABS: BASOPHILS % (AUTO) 0.5 % (0.2-1.0); EOSINOPHILS # (AUTO) 0.4 x10^3/uL (0.0-0.2); EOSINOPHILS % (AUTO) 3.8 % (0.9-2.9); HEMOGLOBIN 10.6 g/dL (13.5-18.0); LYMPHOCYTES # (AUTO) 1.9 X10^3/uL (1.3-2.9); MEAN CORPUSCULAR HEMOGLOBIN 27.3 pg (27.0-34.0); MEAN CORPUSCULAR VOLUME 82.8 fL (80.0-100.0); MONOCYTES # (AUTO) 1.1 x10^3/uL (0.3-0.8); NEUTROPHILS # (AUTO) 6.3 x10^3/uL (2.2-4.8); NEUTROPHILS % (AUTO) 64.7 % (42.0-75.0); PLATELET COUNT 202 X10^3/uL (150.0-450.0); RED BLOOD COUNT 3.86 X10^6/uL (4.7-6.0); RED CELL DISTRIBUTION WIDTH 17.5 % (11.6-16.5); WHITE BLOOD COUNT 9.6 X10^3/uL (3.6-10.0)
[2020-03-16 06:15] LABS: ALANINE AMINOTRANSFERASE < 6 Units/L (12-78); ALBUMIN 2.4 g/dL (3.4-5.0); ALKALINE PHOSPHATASE 63 Units/L (46-116); ASPARTATE AMINO TRANSFERASE 11 Units/L (15-37); BLOOD UREA NITROGEN 4 mg/dL (7-18); CALCIUM 8.2 mg/dL (8.5-10.1); CARBON DIOXIDE 26.2 mmol/L (21-32); CHLORIDE 106 mmol/L (98-107); COR CA(FOR HYPOALB) 9.5 mg/dL (8.5-10.1); COR NA(FOR HYPERGLY) 139 mmol/L (136-145); CREATININE 0.85 mg/dL (0.70-1.30); MAGNESIUM 1.8 mg/dL (1.7-2.9); SODIUM 138 mmol/L (136-145); TOTAL PROTEIN 5.7 g/dL (6.4-8.2); eGFR NON BLACK RACES > 60 (>60)
[2020-03-16] MEDS: K-DUR TAB 20 MEQ PO PRN (06:37)
[2020-03-16] MEDS: MAGNESIUM SULFATE 1 GRAM/100 mL PREMIX 1 GM/100 ML BAG IV PRN (06:38)
--- NOTE | 2020-03-16 08:09 | PCM.PROG ---
Progress Note Progress Note for Day of Date of Exam: 03/16/20 Subjective Subjective: Pt is a 85 yo m pmhx rectal cancer, HTN, Hypothyroidism, admitted for prolapsed colostomy with obstruction. Today, he is POD#4 resection transverse colon with primary anastomosis and closure of colostomy. Pt has been tolerating some po intake. He still has not had bowel movement. His abdomen is a little distended this morning but with good bowel sounds and non-tender. Pt is on prophylactic abx Cefazolin+Flagyl. He has remained afebrile. Labs/imaging: Wbc 9.6, Hgb 10.6, Plt 202, Na 139, K 3.3, Cr 0.85, Gluc 130. Will get KUB and give enema. Pt will need to have bowel movement to confirm functional status. Continue to monitor and follow up labs/imaging in the morning. Past Medical Family Social History Past Med/Fam/Surg Hx: No changes since H&P Allergies: Allergies No Known Drug Allergies Allergy (Verified 03/10/20 13:14) Review of Systems ROS: No change since H&P Vital Signs and I&O's Vital Signs: Temperature 98.6 F Pulse Rate [Left Brachial] 96 Pulse Rate 90 Respiratory Rate 20 Blood Pressure [Right Arm] 102/55 Blood Pressure [Left Arm] 131/60 Blood Pressure 105/52 O2 Sat by Pulse Oximetry 93 Intake and Output: Intake & Output 03/13/20 03/14/20 03/15/20 03/16/20 23:59 23:59 23:59 23:59 Intake Total 440 / 440 2090 / 2090 4031 / 4031 1300 / 1300 Output Total 475 / 475 1600 / 1600 300 / 300 Balance -35 / -35 490 / 490 4031 / 4031 1000 / 1000 Physical Exam Oriented: Normal Eyes: Normal Ear: Normal Nose: Normal Throat: Normal Respiratory: Normal Cardiovascular: Normal : Normal Auscultation: Bowel Sounds: Decreased Tenderness: Diffuse (moderate diffuse tenderness . ) Skin: Other (surgical wound dressing) Musculoskeletal: Normal Psychiatric: Normal Mood Description: Calm Speech Pattern: Clear and Appropriate Laboratory and Diagnostics Result Diagrams: 03/16/20 04:59 03/16/20 04:59 Labs: Laboratory WBC 9.6 X10^3/uL (3.6-10.0) 03/16/20 04:59 RBC 3.86 X10^6/uL (4.7-6.0) L 03/16/20 04:59 Hgb 10.6 g/dL (13.5-18.0) L 03/16/20 04:59 Hct 32.0 % (42.0-54.0) L 03/16/20 04:59 MCV 82.8 fL (80.0-100.0) 03/16/20 04:59 MCH 27.3 pg (27.0-34.0) 03/16/20 04:59 MCHC 33.0 g/dL (33.0-35.0) 03/16/20 04:59 RDW 17.5 % (11.6-16.5) H 03/16/20 04:59 Plt Count 202 X10^3/uL (150.0-450.0) 03/16/20 04:59 MPV 9.0 fL (7.4-11.0) 03/16/20 04:59 Neut % (Auto) 64.7 % (42.0-75.0) 03/16/20 04:59 Lymph % (Auto) 20.0 % (21.0-51.0) L 03/16/20 04:59 [place] % (Auto) 11.0 % (0.0-13.0) 03/16/20 04:59 Eos % (Auto) 3.8 % (0.9-2.9) H 03/16/20 04:59 Baso % (Auto) 0.5 % (0.2-1.0) 03/16/20 04:59 Neut # (Auto) 6.3 x10^3/uL (2.2-4.8) H 03/16/20 04:59 Lymph # (Auto) 1.9 X10^3/uL (1.3-2.9) 03/16/20 04:59 [place] # (Auto) 1.1 x10^3/uL (0.3-0.8) H 03/16/20 04:59 Eos # (Auto) 0.4 x10^3/uL (0.0-0.2) H 03/16/20 04:59 Baso # (Auto) 0.0 X10^3/uL (0.0-0.1) 03/16/20 04:59 Absolute Nucleated RBC 0.1 /100WBC 03/16/20 04:59 Sodium 138 mmol/L (136-145) 03/16/20 04:59 Corrected Sodium 139 mmol/L (136-145) 03/16/20 04:59 Potassium 3.3 mmol/L (3.5-5.1) L 03/16/20 04:59 Chloride 106 mmol/L (98-107) 03/16/20 04:59 Carbon Dioxide 26.2 mmol/L (21-32) 03/16/20 04:59 BUN 4 mg/dL (7-18) L 03/16/20 04:59 Creatinine 0.85 mg/dL (0.70-1.30) 03/16/20 04:59 Est GFR (MDRD) Af Amer > 60 (>60) 03/16/20 04:59 Est GFR (MDRD) Non-Af > 60 (>60) 03/16/20 04:59 Glucose 130 mg/dL (65-99) H 03/16/20 04:59 Calcium 8.2 mg/dL (8.5-10.1) L 03/16/20 04:59 Corrected Calcium 9.5 mg/dL (8.5-10.1) 03/16/20 04:59 Magnesium 1.8 mg/dL (1.7-2.9) 03/16/20 04:59 Total Bilirubin 0.40 mg/dL (0.2-1.0) 03/16/20 04:59 AST 11 Units/L (15-37) L 03/16/20 04:59 ALT < 6 Units/L (12-78) L 03/16/20 04:59 Alkaline Phosphatase 63 Units/L (46-116) 03/16/20 04:59 Total Protein 5.7 g/dL (6.4-8.2) L 03/16/20 04:59 Albumin 2.4 g/dL (3.4-5.0) L 03/16/20 04:59 Globulin 3.3 g/dL (2.5-4.5) 03/16/20 04:59 Albumin/Globulin Ratio 0.7 Ratio (1.1-2.1) L 03/16/20 04:59 Tissue Pathology To follow 03/12/20 15:08 Plan (1) S/P colon resection: Status: Chronic Plan: Post-op Day#2. ADVANCE DIET TODAY. CONTINUE WITH FLUIDS, ANTIBIOTICS, PAIN MANAGEMENT. OOB TID
[2020-03-16] MEDS: PROTONIX INJ 40 MG VIAL IVP SCH (08:56)
[2020-03-16] MEDS: LOVENOX INJ 40 MG SYR SC SCH (08:56)
[2020-03-16] MEDS: FLOMAX PO SCH ×2 (08:57→20:39)
[2020-03-16] MEDS: PROCARDIA XL PO SCH ×2 (08:57→08:59)
[2020-03-16] MEDS: SYNTHROID 125 mcg TAB PO SCH (08:57)
[2020-03-16] MEDS: K-DUR TAB 20 MEQ PO SCH (08:59)
[2020-03-16] MEDS: NORVASC TAB 10 MG PO SCH ×2 (08:59)
[2020-03-16] MEDS: LASIX PO SCH (09:00)
[2020-03-16] MEDS: TIMOLOL MALEATE OP SCH (09:14)
--- NOTE | 2020-03-16 09:24 | RAD ---
HISTORYABD DISTENTION, PROLAPASED COLOSTOMYSTUDYKUB x-ray abdomen 1COMPARISONX-ray 07/25/2019FINDINGSSkin ajay are seen overlying the right mid abdomen. There is mild increased small bowel air with slight proximal dilation up to 3.2 cm. Mild colonic air is seen. No constipation is seen.IMPRESSIONMild small-bowel obstruction is not excluded.Electronically signed by: Adrian Caldera (Mar 16, 2020 09:13:35)
[2020-03-16] MEDS ORDERED: DULCOLAX SUPPOSITORY 10 MG RECTAL ONE (09:40)
--- NOTE | 2020-03-16 10:15 | DR.PROGNOT ---
Hospital Progress Notes - Progress Note for Day of: Progress Note Date: 03/16/20 - Chief Complaint Chief Complaint: having moderate abdominal pain . vomited small amount this am . passing flatus , no BM yet .. CBC, CMP normal . temp is normal .. - Past Medical Family Social History Past Med/Fam/Surg Hx: No changes since H&P Allergies: Allergies No Known Drug Allergies Allergy (Verified 03/10/20 13:14) - Review Of Systems ROS: No change since H&P - Vital Signs Vital Signs: Temperature 98.6 F Pulse Rate [Left Brachial] 96 Pulse Rate 90 Respiratory Rate 20 Blood Pressure [Right Arm] 102/55 Blood Pressure [Left Arm] 131/60 Blood Pressure 105/52 O2 Sat by Pulse Oximetry 93 - Physical Exam Oriented: Normal Eyes: Normal Ear: Normal Nose: Normal Throat: Normal Respiratory: Normal Cardiovascular: Normal : Normal GI:Auscultation: Decreased GI:Palpation: Normal GI: Tenderness: Diffuse (moderate abdominal distention and diffuse tenderness . BS+) Skin: Other (surgical wound dressing) Musculoskeletal: Normal Psychiatric: Normal Mood Description: Calm Speech Pattern: Clear, Appropriate - Laboratory and Diagnostics Result Diagrams: 03/16/20 04:59 03/16/20 04:59 Labs: Laboratory WBC 9.6 X10^3/uL (3.6-10.0) 03/16/20 04:59 RBC 3.86 X10^6/uL (4.7-6.0) L 03/16/20 04:59 Hgb 10.6 g/dL (13.5-18.0) L 03/16/20 04:59 Hct 32.0 % (42.0-54.0) L 03/16/20 04:59 MCV 82.8 fL (80.0-100.0) 03/16/20 04:59 MCH 27.3 pg (27.0-34.0) 03/16/20 04:59 MCHC 33.0 g/dL (33.0-35.0) 03/16/20 04:59 RDW 17.5 % (11.6-16.5) H 03/16/20 04:59 Plt Count 202 X10^3/uL (150.0-450.0) 03/16/20 04:59 MPV 9.0 fL (7.4-11.0) 03/16/20 04:59 Neut % (Auto) 64.7 % (42.0-75.0) 03/16/20 04:59 Lymph % (Auto) 20.0 % (21.0-51.0) L 03/16/20 04:59 [place] % (Auto) 11.0 % (0.0-13.0) 03/16/20 04:59 Eos % (Auto) 3.8 % (0.9-2.9) H 03/16/20 04:59 Baso % (Auto) 0.5 % (0.2-1.0) 03/16/20 04:59 Neut # (Auto) 6.3 x10^3/uL (2.2-4.8) H 03/16/20 04:59 Lymph # (Auto) 1.9 X10^3/uL (1.3-2.9) 03/16/20 04:59 [place] # (Auto) 1.1 x10^3/uL (0.3-0.8) H 03/16/20 04:59 Eos # (Auto) 0.4 x10^3/uL (0.0-0.2) H 03/16/20 04:59 Baso # (Auto) 0.0 X10^3/uL (0.0-0.1) 03/16/20 04:59 Absolute Nucleated RBC 0.1 /100WBC 03/16/20 04:59 Sodium 138 mmol/L (136-145) 03/16/20 04:59 Corrected Sodium 139 mmol/L (136-145) 03/16/20 04:59 Potassium 3.3 mmol/L (3.5-5.1) L 03/16/20 04:59 Chloride 106 mmol/L (98-107) 03/16/20 04:59 Carbon Dioxide 26.2 mmol/L (21-32) 03/16/20 04:59 BUN 4 mg/dL (7-18) L 03/16/20 04:59 Creatinine 0.85 mg/dL (0.70-1.30) 03/16/20 04:59 Est GFR (MDRD) Af Amer > 60 (>60) 03/16/20 04:59 Est GFR (MDRD) Non-Af > 60 (>60) 03/16/20 04:59 Glucose 130 mg/dL (65-99) H 03/16/20 04:59 Calcium 8.2 mg/dL (8.5-10.1) L 03/16/20 04:59 Corrected Calcium 9.5 mg/dL (8.5-10.1) 03/16/20 04:59 Magnesium 1.8 mg/dL (1.7-2.9) 03/16/20 04:59 Total Bilirubin 0.40 mg/dL (0.2-1.0) 03/16/20 04:59 AST 11 Units/L (15-37) L 03/16/20 04:59 ALT < 6 Units/L (12-78) L 03/16/20 04:59 Alkaline Phosphatase 63 Units/L (46-116) 03/16/20 04:59 Total Protein 5.7 g/dL (6.4-8.2) L 03/16/20 04:59 Albumin 2.4 g/dL (3.4-5.0) L 03/16/20 04:59 Globulin 3.3 g/dL (2.5-4.5) 03/16/20 04:59 Albumin/Globulin Ratio 0.7 Ratio (1.1-2.1) L 03/16/20 04:59 Tissue Pathology To follow 03/12/20 15:08 - Assessment and Plan 1: POST OP segmental resection of prolapsed colostomy with anastomosis . moderate PO ileus . to ambulate .. same IV and diet . Dulcolax supp. - Problem Patient Problems: Patient Problems Hypokalemia (Acute) E87.6 Colostomy prolapse (Resolved) K94.09
[2020-03-16] MEDS ORDERED: DULCOLAX SUPPOSITORY 10 MG ONE (12:02)
[2020-03-16] MEDS ORDERED: FLEET ENEMA ADULT PR ONE (18:46)
[2020-03-16] MEDS: DILAUDID INJ IVP PRN (20:30)
[2020-03-17] MEDS: D5 1/2 NS 1000 ML 1,000 ML IV SCH (01:29)
[2020-03-17 06:03] LABS: BASOPHILS % (AUTO) 0.5 % (0.2-1.0); EOSINOPHILS # (AUTO) 0.4 x10^3/uL (0.0-0.2); EOSINOPHILS % (AUTO) 4.6 % (0.9-2.9); HEMATOCRIT 30.4 % (42.0-54.0); LYMPHOCYTES # (AUTO) 1.9 X10^3/uL (1.3-2.9); LYMPHOCYTES % (AUTO) 22.3 % (21.0-51.0); MEAN CORPUSCULAR HGB CONC 32.8 g/dL (33.0-35.0); MEAN CORPUSCULAR VOLUME 82.2 fL (80.0-100.0); MEAN PLATELET VOLUME 8.8 fL (7.4-11.0); MONOCYTES % (AUTO) 11.8 % (0.0-13.0); NEUTROPHILS # (AUTO) 5.3 x10^3/uL (2.2-4.8); NEUTROPHILS % (AUTO) 60.8 % (42.0-75.0); PLATELET COUNT 214 X10^3/uL (150.0-450.0); RED CELL DISTRIBUTION WIDTH 17.5 % (11.6-16.5); WHITE BLOOD COUNT 8.7 X10^3/uL (3.6-10.0)
[2020-03-17 06:06] LABS: BLOOD UREA NITROGEN 3 mg/dL (7-18); CALCIUM 8.2 mg/dL (8.5-10.1); CARBON DIOXIDE 25.4 mmol/L (21-32); CHLORIDE 105 mmol/L (98-107); COR NA(FOR HYPERGLY) 139 mmol/L (136-145); CREATININE 0.84 mg/dL (0.70-1.30); SODIUM 138 mmol/L (136-145); eGFR NON BLACK RACES > 60 (>60)
[2020-03-17] MEDS: KLOR-CON PO PRN (06:28)
[2020-03-17] MEDS ORDERED: FLEET ENEMA ADULT PR ONE (08:49)
--- NOTE | 2020-03-17 09:13 | W.DIS.FURT ---
Summary of Discharge Discharge Summary of Date Date of Exam: 03/17/20 Admission Date Date of Admission: 03/10/20 Admission Diagnosis Patient Problems (Updated 03/14/20 @ 12:09 by Yovany English) Hypokalemia (Acute) E87.6 Colostomy prolapse (Resolved) K94.09 Hospital Course: Pt is a 85 yo m pmhx rectal cancer, HTN, Hypothyroidism, admitted for prolapsed colostomy with obstruction. He had resection transverse colon with primary anastomosis and closure of colostomy performed by general surgery-Dr Duran. On day of discharge he was POD#5. Pt was able to tolerate po intake and was able to have a bowel movement. He remained afebrile. On exam mildly distended abdomen, good bowel sounds, no tenderness. Pt was discharged in stable condition with home health ordered. Instructed to follow up with pcp and general surgery outpatient. Vital Signs: Vital Signs (72 hours) 03/14/20 12:00 03/14/20 15:59 03/14/20 20:00 Temperature 98.9 F 98.3 F 98.9 F Pulse Rate [Left Brachial] 77 84 77 Respiratory Rate 20 20 20 Blood Pressure [Left Arm] Blood Pressure [Right Arm] 124/58 120/59 124/58 O2 Sat by Pulse Oximetry 91 L 92 L 97 03/14/20 21:50 03/14/20 22:20 03/15/20 00:00 Temperature 98.6 F Pulse Rate [Left Brachial] 84 Respiratory Rate 20 18 16 Blood Pressure [Left Arm] Blood Pressure [Right Arm] 104/54 O2 Sat by Pulse Oximetry 93 L 03/15/20 04:00 03/15/20 08:00 03/15/20 08:51 Temperature 98.9 F 98.8 F Pulse Rate [Left Brachial] 76 90 Respiratory Rate 22 20 20 Blood Pressure [Left Arm] 126/60 Blood Pressure [Right Arm] 102/55 O2 Sat by Pulse Oximetry 96 93 L 03/15/20 09:21 03/15/20 12:00 03/15/20 16:00 Temperature 99.0 F 98.2 F Pulse Rate [Left Brachial] 85 89 Respiratory Rate 20 20 20 Blood Pressure [Left Arm] 109/55 128/60 Blood Pressure [Right Arm] O2 Sat by Pulse Oximetry 94 L 95 03/15/20 20:00 03/16/20 00:00 03/16/20 04:00 Temperature 98.0 F 98.6 F 98.6 F Pulse Rate [Left Brachial] 92 H 95 H 96 H Respiratory Rate 21 20 20 Blood Pressure [Left Arm] 130/66 134/60 131/60 Blood Pressure [Right Arm] O2 Sat by Pulse Oximetry 94 L 94 L 93 L 03/16/20 08:00 03/16/20 12:00 03/16/20 16:00 Temperature 97.8 F 98.0 F 97.7 F Pulse Rate [Left Brachial] 80 74 87 Respiratory Rate 18 18 18 Blood Pressure [Left Arm] Blood Pressure [Right Arm] 119/58 129/65 127/58 O2 Sat by Pulse Oximetry 97 95 96 03/16/20 20:00 03/16/20 20:30 03/16/20 21:00 Temperature 98.2 F Pulse Rate [Left Brachial] 86 Respiratory Rate 18 18 18 Blood Pressure [Left Arm] Blood Pressure [Right Arm] 132/62 O2 Sat by Pulse Oximetry 95 03/17/20 00:00 03/17/20 04:00 03/17/20 08:00 Temperature 98.2 F 98.6 F 98.3 F Pulse Rate [Left Brachial] 91 H 83 60 Respiratory Rate 18 18 20 Blood Pressure [Left Arm] Blood Pressure [Right Arm] 123/72 133/65 129/60 O2 Sat by Pulse Oximetry 95 94 L 93 L Labs: Laboratory Last Values WBC 8.7 X10^3/uL (3.6-10.0) 03/17/20 05:25 RBC 3.70 X10^6/uL (4.7-6.0) L 03/17/20 05:25 Hgb 10.0 g/dL (13.5-18.0) L 03/17/20 05:25 Hct 30.4 % (42.0-54.0) L 03/17/20 05:25 MCV 82.2 fL (80.0-100.0) 03/17/20 05:25 MCH 27.0 pg (27.0-34.0) 03/17/20 05:25 MCHC 32.8 g/dL (33.0-35.0) L 03/17/20 05:25 RDW 17.5 % (11.6-16.5) H 03/17/20 05:25 Plt Count 214 X10^3/uL (150.0-450.0) 03/17/20 05:25 MPV 8.8 fL (7.4-11.0) 03/17/20 05:25 Neut % (Auto) 60.8 % (42.0-75.0) 03/17/20 05:25 Lymph % (Auto) 22.3 % (21.0-51.0) 03/17/20 05:25 [place] % (Auto) 11.8 % (0.0-13.0) 03/17/20 05:25 Eos % (Auto) 4.6 % (0.9-2.9) H 03/17/20 05:25 Baso % (Auto) 0.5 % (0.2-1.0) 03/17/20 05:25 Neut # (Auto) 5.3 x10^3/uL (2.2-4.8) H 03/17/20 05:25 Lymph # (Auto) 1.9 X10^3/uL (1.3-2.9) 03/17/20 05:25 [place] # (Auto) 1.0 x10^3/uL (0.3-0.8) H 03/17/20 05:25 Eos # (Auto) 0.4 x10^3/uL (0.0-0.2) H 03/17/20 05:25 Baso # (Auto) 0.0 X10^3/uL (0.0-0.1) 03/17/20 05:25 Absolute Nucleated RBC 0.0 /100WBC 03/17/20 05:25 Sodium 138 mmol/L (136-145) 03/17/20 05:25 Corrected Sodium 139 mmol/L (136-145) 03/17/20 05:25 Potassium 2.9 mmol/L (3.5-5.1) L* 03/17/20 05:25 Chloride 105 mmol/L (98-107) 03/17/20 05:25 Carbon Dioxide 25.4 mmol/L (21-32) 03/17/20 05:25 BUN 3 mg/dL (7-18) L 03/17/20 05:25 Creatinine 0.84 mg/dL (0.70-1.30) 03/17/20 05:25 Est GFR (MDRD) Af Amer > 60 (>60) 03/17/20 05:25 Est GFR (MDRD) Non-Af > 60 (>60) 03/17/20 05:25 Glucose 130 mg/dL (65-99) H 03/17/20 05:25 Calcium 8.2 mg/dL (8.5-10.1) L 03/17/20 05:25 Corrected Calcium 9.5 mg/dL (8.5-10.1) 03/16/20 04:59 Magnesium 1.8 mg/dL (1.7-2.9) 03/16/20 04:59 Total Bilirubin 0.40 mg/dL (0.2-1.0) 03/16/20 04:59 AST 11 Units/L (15-37) L 03/16/20 04:59 ALT < 6 Units/L (12-78) L 03/16/20 04:59 Alkaline Phosphatase 63 Units/L (46-116) 03/16/20 04:59 Total Protein 5.7 g/dL (6.4-8.2) L 03/16/20 04:59 Albumin 2.4 g/dL (3.4-5.0) L 03/16/20 04:59 Globulin 3.3 g/dL (2.5-4.5) 03/16/20 04:59 Albumin/Globulin Ratio 0.7 Ratio (1.1-2.1) L 03/16/20 04:59 Tissue Pathology To follow 03/12/20 15:08 Miscellaneous Test Covid 19 03/11/20 09:15 Reason For Visit: PROLASPED COLOSTMY RETAL CA Discharge Date Discharge Date: 03/17/20 Discharge Diagnosis All Active Problems (Updated 03/11/20 @ 08:51 by Jhoana Ncie) Hypokalemia (Acute) Gout (Chronic) Hypertension (Chronic) Hypothyroidism (Chronic) S/P colon resection (Chronic) Colostomy status (Chronic) Plan of Treatment: Home health nursing. Discharge Medications Discharge Medications: No Known Drug Allergies Allergy (Verified 03/10/20 13:14) CONTINUE taking the following medications allopurinol 300 mg PO DAILY 03/10/20 [History] clotrimazole 1 applic TOPICAL DAILY 03/10/20 [History] furosemide [Lasix] 10 mg PO DAILY 03/10/20 [History] potassium chloride 10 meq PO DAILY 03/10/20 [History] tamsulosin 0.4 mg PO HS 03/10/20 [History] timolol maleate 1 drp OPHTHALMIC (EYE) DAILY 03/10/20 [History] triamcinolone acetonide 1 applic TOPICAL DAILY 03/10/20 [History] Discharge Disposition Assessment: Stable no acute distress noted at time of discharge. Discharge Disposition: Home Discharge Condition: Stable
[2020-03-17] MEDS ORDERED: FLEET ENEMA ADULT ONE (09:20)
[2020-03-17] MEDS: NORVASC TAB 10 MG PO SCH (09:22)
[2020-03-17] MEDS: PROTONIX INJ 40 MG VIAL IVP SCH (09:22)
[2020-03-17] MEDS: FLOMAX PO SCH (09:22)
[2020-03-17] MEDS: TIMOLOL MALEATE OP SCH (09:22)
[2020-03-17] MEDS: LASIX PO SCH (09:23)
[2020-03-17] MEDS: PROCARDIA XL PO SCH (09:23)
[2020-03-17] MEDS: K-DUR TAB 20 MEQ PO SCH (09:23)
[2020-03-17] MEDS: SYNTHROID 125 mcg TAB PO SCH (09:23)
[2020-03-17] MEDS: LOVENOX INJ 40 MG SYR SC SCH (09:25)
[2020-03-17] MEDS: K-DUR TAB 20 MEQ PO PRN (09:27)
[2020-03-17 13:41] VITALS: BP 130/63
== END 2020-03-17 12:50 | disposition home health service (06) | DRG 346 ==
LOC: MED/SURG 11:20
PROVIDERS: ADMIT Family Medicine; ATTEND Family Medicine
PROC: COLOREV (2020-03-12 17:25)
DX: R26.89 Other abnormalities of gait and mobility; Z11.59 Encounter for screening for other viral diseases; J44.9 Chronic obstructive pulmonary disease, unspecified; Z90.49 Acquired absence of other specified parts of digestive tract; K52.89 Other specified noninfective gastroenteritis and colitis; K59.09 Other constipation; E87.6 Hypokalemia; E03.8 Other specified hypothyroidism; Z85.048 Personal history of other malignant neoplasm of rectum, rectosigmoid junction, and anus; K94.09 Other complications of colostomy; K94.03 Colostomy malfunction; I10 Essential (primary) hypertension
CPT/HCPCS: 36415; 71010; 71045; 74000; 74018; 80048; 80053; 83735; 84132; 85025; 93005; 94760; 97116; 97162; 97166; 97530; 97535; 99100; A4216; A4222; C9113; J0330; J0690; J1170; J1650; J2250; J2370; J2704; J2710; J3010; J3475; J3490; J7030; J7120; S0030; S5010